=== PATIENT | male | born 1935 | race Caucasian/White ===

== ENCOUNTER 2020-11-06 17:32 | Inpatient (IN) | payer MEDICARE, BC, SELFPAY ==
[2020-11-06] VITALS (7 sets, daily range): BP systolic 111–126; BP diastolic 55–83; PULSE 65–93; RESP 18–22; TEMP 36.6–38.2; O2SAT 91–98; BMI 37.5; BMI 34.9
--- NOTE | 2020-11-06 17:44 | XRR_ITS ---
PROCEDURE INFORMATION: Exam: XR Chest Exam date and time: 11/06/2020 5:44 PM Age: 85 years old Clinical indication: Cough; Additional info: Dyspnea/cough TECHNIQUE: Imaging protocol: XR of the chest. Views: 1 view. COMPARISON: CR Chest 1 [place] [id number] 12/08/2018 8:04 AM FINDINGS: Lungs: Mildly hyperinflated lungs. No focal consolidation. Pleural spaces: Unremarkable. No pleural effusion. No pneumothorax. Heart/Mediastinum: Cardiomegaly with mild pulmonary central pulmonary vascular congestion, similar to prior exam. Bones/joints: Visualized osseous structures appear intact. 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 XR/XR chest 1V portable [id number] IMPRESSION: Stable exam, no acute findings.
[2020-11-06 18:07] LABS: Basophils # 0.1 10^3/uL (0.0-0.1); Basophils % 0.3 %; Hematocrit 38.9 % (42.0-52.0); Hemoglobin 13.3 g/dL (11.7-16.6); Lymphocytes # 0.4 10^3/uL (0.8-4.8); Lymphocytes % 2.8 %; Mean Corpuscular HGB Conc 34.2 g/dL (30.0-36.0); Mean Corpuscular Hemoglobin 32.7 pg (28.0-34.0); Mean Corpuscular Volume 95.6 fl (80-94); Mean Platelet Volume 9.8 fL (7.4-10.4); Monocytes # 0.9 10^3/uL (0.2-0.9); Monocytes % 5.7 %; Neutrophils # 14.27 10^3/uL (1.8-7.7); Neutrophils % 90.6 %; Nucleated Red Blood Cells % 0 %; Platelet Count 204 10^3/cmm (130-400); Red Blood Count 4.07 10^6/uL (4.1-5.3); Red Cell Distribution Width 13.6 % (12.1-15.1); White Blood Count 15.8 10^3/uL (4.0-10.0)
--- NOTE | 2020-11-06 18:08 | ED_ITS ---
HPI - Fever General: Chief Complaint: Fever Stated Complaint: WEAKNESS, FEVER Time Seen by Provider: 11/06/20 17:41 Source: patient and EMS Mode of arrival: EMS Limitations: no limitations History of Present Illness: HPI Narrative: 85-year-old male who had a fall draining he states he was coughing with this. He states he went to begin to stand but then he was too weak to really stand on his own. And checked his temperature and he had a fever of 102. Here patient has no complaints he states he feels fine he did not know he had a fever. He denies a headache denies any cough. He is able answer all my questions appropriately and is alert and oriented x4. He states that when he is trying to walk today that he is just to have difficulty due to weakness. He denies any injuries. Denies any pain anywhere. Associated symptoms: Deny abdominal pain, chest pain, diarrhea, dysuria, headache(s), nausea or vomiting Review of Systems Const: Reports: fever(s) and fatigue Eyes: Denies: blurry vision or eye discomfort ENMT: Denies: throat pain or dental pain Card: Denies: chest pain Resp: Denies: dyspnea GI: Denies: abdominal pain, nausea, vomiting or diarrhea : Denies: dysuria Musc: Denies: neck pain or back pain Skin/Breast: Denies: rash Neuro: Denies: headache(s) Psych: Denies: depression Andrea/Lymph: Denies: easy bruising All/Imm: Denies: urticaria PFSH ED PFSH: Medical History HTN (hypertension) Hypothyroid Surgical History History of knee replacement Social History Smoking and tobacco status: former smoker History of recent travel: No Physical Exam Const: COMMON NORMALS: no acute distress, patient oriented x3 and healthy appearing HENMT: COMMON NORMALS: normocephalic and atraumatic HEAD & SCALP: normocephalic and atraumatic Eye: COMMON NORMALS: Equal, round and reactive pupils present and EOMs intact bilaterally PUPIL: Yes Equal, round and reactive pupils present Neck/C-Spine: COMMON NORMALS: full ROM and supple Chest: COMMONS NORMALS: normal inspection of the chest and normal palpation of entire chest wall Resp: COMMON NORMALS: normal respiratory effort, No retractions, No use of accessory muscles and clear to auscultation bilaterally AUSCULTATION: clear to auscultation bilaterally Cardio: COMMON NORMALS: regular rate, regular rhythm and No murmurs present (Cardio) RATE: regular rate RHYTHM: regular rhythm GI: COMMON NORMALS: Normal to inspection, nondistended, normoactive bowel sounds present, Soft to palpation, non-tender and no masses PALPATION: Yes Soft to palpation Extremity: COMMON NORMALS: normal to inspection and full ROM Neuro: COMMON NORMALS: patient oriented x3, moves all extremities and no focal motor deficits Psych: COMMON NORMALS: mental status grossly normal, Normal thought process present and cooperative THOUGHT PROCESS: Normal thought process present Skin: COMMON NORMALS: no rashes or lesions noted and no wounds GENERAL SKIN EXAM: no rashes or lesions noted Course Vital Signs: Vital signs: Vital Signs Temperature 98.9 F 11/06/20 21:16 Pulse Rate 65 11/06/20 21:16 Respiratory Rate 18 11/06/20 21:16 Blood Pressure 111/57 11/06/20 21:16 Pulse Oximetry 98 11/06/20 21:16 MDM - Fever MDM Narrative: Medical decision making narrative: Patient presents here with fever along with weakness. Patient's had difficulty time ambulating here and I do not feel he stable for discharge back home. He does have cellulitis to his right leg and a possible urinary tract infection. Patient given IV antibiotics. Patient stable here and has been normotensive. Spoke to hospitalist will admit for observation. Lab Data: Labs: Lab Results 11/06/20 11/06/20 11/06/20 Range/Units 17:58 17:58 17:58 WBC 15.8 H (4.0-10.0) 10^3/ uL RBC 4.07 L (4.1-5.3) 10^6/u L Hgb 13.3 (11.7-16.6) g/dL Hct 38.9 L (42.0-52.0) % MCV 95.6 H (80-94) fl MCH 32.7 (28.0-34.0) pg MCHC 34.2 (30.0-36.0) g/dL RDW 13.6 (12.1-15.1) % Plt Count 204 (130-400) 10^3/c mm MPV 9.8 (7.4-10.4) fL Neut % (Auto) 90.6 % Lymph % (Auto) 2.8 % [place] % (Auto) 5.7 % Eos % (Auto) 0.0 % Baso % (Auto) 0.3 % Neut # (Auto) 14.27 H (1.8-7.7) 10^3/u L Lymph # (Auto) 0.4 L (0.8-4.8) 10^3/u L [place] # (Auto) 0.9 (0.2-0.9) 10^3/u L Eos # (Auto) 0.0 (0.0-0.8) 10^3/u L Baso # (Auto) 0.1 (0.0-0.1) 10^3/u L Nucleated RBC % (a uto) 0 % Nucleated RBCs # 0.0 /100WBC Sodium 132 L (136-145) mmol/L Potassium 4.0 (3.5-5.1) mmol/L Chloride 96 L (98-107) mmol/L Carbon Dioxide 22 (22-29) mmol/L Anion Gap 18.0 (5-19) BUN 23 (8-23) mg/dL Creatinine 1.0 (0.7-1.2) mg/dL GFR Calculation Not Reportable Glucose 136 H (65-115) mg/dL Calculated Osmolal ity 280 L (285-295) mOsm/k g Lactic Acid (0.5-2.2) mmol/L Calcium 9.1 (8.5-10.5) mg/dL Total Bilirubin 1.0 (0.15-1.2) mg/dL AST 27 (0-40) U/L ALT 16 (0-41) U/L Alkaline Phosphata se 77 (40-130) IU/L Total Protein 6.4 L (6.6-8.7) g/dL Albumin 3.5 (3.5-5.2) g/dL Globulin 2.9 (1.3-4.6) g/dL Urine Color Yellow (Yellow) Urine Appearance Sl hazy (CLEAR) Urine pH 6.5 (5-7) Ur Specific Gravit y 1.005 (1.005-1.030) Urine Protein Trace (Negative) Urine Glucose (UA) Norm (Normal) Urine Ketones Negative (Negative) Urine Blood 2+ H (Negative) Urine Nitrate Negative (Negative) Urine Bilirubin Neg (Negative) Urine Urobilinogen Norm (Negative) mg/dL Ur Leukocyte Lennie ase 2+ H (Negative) Urine RBC 5-10 H (0-2) /hpf Urine WBC 25-40 H (0-5) /hpf Ur Squamous Epith Cells 0-4 H (0-5) /hpf Amorphous Sediment Not Reportable Urine Bacteria 2+ H (NONE) /hpf SARS-CoV-2 Ag (Rap id) (Negative) 11/06/20 11/06/20 Range/Units 18:30 18:40 WBC (4.0-10.0) 10^3/ uL RBC (4.1-5.3) 10^6/u L Hgb (11.7-16.6) g/dL Hct (42.0-52.0) % MCV (80-94) fl MCH (28.0-34.0) pg MCHC (30.0-36.0) g/dL RDW (12.1-15.1) % Plt Count (130-400) 10^3/c mm MPV (7.4-10.4) fL Neut % (Auto) % Lymph % (Auto) % [place] % (Auto) % Eos % (Auto) % Baso % (Auto) % Neut # (Auto) (1.8-7.7) 10^3/u L Lymph # (Auto) (0.8-4.8) 10^3/u L [place] # (Auto) (0.2-0.9) 10^3/u L Eos # (Auto) (0.0-0.8) 10^3/u L Baso # (Auto) (0.0-0.1) 10^3/u L Nucleated RBC % (a uto) % Nucleated RBCs # /100WBC Sodium (136-145) mmol/L Potassium (3.5-5.1) mmol/L Chloride (98-107) mmol/L Carbon Dioxide (22-29) mmol/L Anion Gap (5-19) BUN (8-23) mg/dL Creatinine (0.7-1.2) mg/dL GFR Calculation Glucose (65-115) mg/dL Calculated Osmolal ity (285-295) mOsm/k g Lactic Acid 1.8 (0.5-2.2) mmol/L Calcium (8.5-10.5) mg/dL Total Bilirubin (0.15-1.2) mg/dL AST (0-40) U/L ALT (0-41) U/L Alkaline Phosphata se (40-130) IU/L Total Protein (6.6-8.7) g/dL Albumin (3.5-5.2) g/dL Globulin (1.3-4.6) g/dL Urine Color (Yellow) Urine Appearance (CLEAR) Urine pH (5-7) Ur Specific Gravit y (1.005-1.030) Urine Protein (Negative) Urine Glucose (UA) (Normal) Urine Ketones (Negative) Urine Blood (Negative) Urine Nitrate (Negative) Urine Bilirubin (Negative) Urine Urobilinogen (Negative) mg/dL Ur Leukocyte Lennie ase (Negative) Urine RBC (0-2) /hpf Urine WBC (0-5) /hpf Ur Squamous Epith Cells (0-5) /hpf Amorphous Sediment Urine Bacteria (NONE) /hpf SARS-CoV-2 Ag (Rap id) Negative (Negative) Imaging Data^: CXR: Attestation: I personally reviewed and interpreted this imaging study as follows: My impression: [address] [address] XRay Report Signed Patient: Earle De La Rosa Unit #: [id number] : 1935 Age/Sex: 85 / M ADM Date: 11/06/20 Loc: ER Room/Bed: Attending Dr: Ordering Provider/Ordering MD: Braydon Guallpa DO Date of Service: 11/06/20 Procedure(s): XR chest 1V portable [id number] Accession Number(s): [id number] Report Number: [id number] PROCEDURE INFORMATION: Exam: XR Chest Exam date and time: 11/06/2020 5:44 PM Age: 85 years old Clinical indication: Cough; Additional info: Dyspnea/cough TECHNIQUE: Imaging protocol: XR of the chest. Views: 1 view. COMPARISON: CR Chest 1 [place] [id number] 12/08/2018 8:04 AM FINDINGS: Lungs: Mildly hyperinflated lungs. No focal consolidation. Pleural spaces: Unremarkable. No pleural effusion. No pneumothorax. Heart/Mediastinum: Cardiomegaly with mild pulmonary central pulmonary vascular congestion, similar to prior exam. Bones/joints: Visualized osseous structures appear intact. 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 XR/XR chest 1V portable [id number] IMPRESSION: Stable exam, no acute findings. Dictated By: Dayton Flores DO Signed By: Dayton Flores DO Signed Date/Time: 11/06/201836 DD/ 34 CT Head: Attestation: I personally reviewed and interpreted this imaging study as follows: Radiologist's impression: [address] [address] [address] Scan Report Signed Patient: Earle De La Rosa Unit #: [id number] : 1935 Age/Sex: 85 / M ADM Date: 11/06/20 Loc: ER Room/Bed: Attending Dr: Ordering Provider/Ordering MD: Jairo Back MD Date of Service: 11/06/20 Procedure(s): CT head wo con* [id number] Accession Number(s): [id number] Report Number: [id number] PROCEDURE INFORMATION: Exam: CT Head Without Contrast Exam date and time: 11/06/2020 6:06 PM Age: 85 years old Clinical indication: Injury or trauma; Fall; Blunt trauma (contusions or hematomas); Additional info: Fall, weakness, TECHNIQUE: Imaging protocol: Computed tomography of the head without contrast. Radiation optimization: All CT scans at this facility use at least one of these dose optimization techniques: automated exposure control; mA and/or kV adjustment per patient size (includes targeted exams where dose is matched to clinical indication); or iterative reconstruction. COMPARISON: CT head wo con* [id number] 11/11/2014 10:57 AM RADIATION DOSE METRICS: Total DLP (mGy-cm): 964.74 FINDINGS: Brain: No hemorrhage. Mild diffuse cerebral atrophy. Similar sequela of low attenuation signal abnormality within the periventricular, subcortical, and deep white matter tracts suggestive of chronic small vessel ischemic disease. No mass effect or midline shift. Cerebral ventricles: No ventriculomegaly. Paranasal sinuses: Visualized sinuses are unremarkable. No fluid levels. Mastoid air cells: Visualized mastoid air cells are well aerated. Orbital cavity: Post cataract surgical changes of the globes. Bones/joints: Unremarkable. No acute fracture. Soft tissues: Unremarkable. CT/CT head wo con* [id number] IMPRESSION: 1. No acute intracranial abnormality. 2. Stable exam with mild diffuse cerebral atrophy and suspected sequela of chronic small vessel ischemic disease. Radiation Dose CTDIVOL = (mGy): DLP = 964.74 (mGy-cm) Dictated By: Dayton Flores DO Signed By: Dayton Flores DO Signed Date/Time: 11/06/201918 DD/ 17 Discharge Plan Discharge Patient Disposition: Admitted As Inpatient Admit Provider: Kamila Starks Clinical Impression: Abscess or cellulitis of foot, Fever, Weakness Condition: Stable Coding Level of Care Code ED Statistical Technician for Chg Fwd Exam Comprehensive
[2020-11-06 18:39] LABS: Add Urine Microscopic? YES; Bilirubin Urine Neg (Negative); Blood Urine 2+ (Negative); Glucose Urine UA Norm (Normal); Ketones Urine Negative (Negative); Leukocyte Esterase Urine 2+ (Negative); Nitrate Urine Negative (Negative); Protein Urine Trace (Negative); Specific Gravity, Urine 1.005 (1.005-1.030); Urine Appearance SL Hazy (CLEAR); Urine Color Yellow (Yellow); Urobilinogen Urine Norm (Negative); pH Urine 6.5 (5-7)
--- NOTE | 2020-11-06 18:52 | PC.NURSE ---
report from layo petty, patient in ct at this time.
[2020-11-06 18:58] LABS: WBC Urine 25-40 /hpf (0-5)
[2020-11-06 18:59] LABS: Add Urine Culture? Yes; Bacteria Urine 2+ /hpf; Squamous Epithelial Cell Urine 0-4 /hpf (0-5)
[2020-11-06 19:08] LABS: Lactic Sepsis W/Reflex 1.8 mmol/L (0.5-2.2)
[2020-11-06 19:10] LABS: Alanine Aminotransferase 16 U/L (0-41); Albumin Level 3.5 g/dL (3.5-5.2); Alkaline Phosphatase 77 IU/L (40-130); Aspartate Amino Transferase 27 U/L (0-40); Blood Urea Nitrogen 23 mg/dL (8-23); Calcium 9.1 mg/dL (8.5-10.5); Carbon Dioxide 22 mmol/L (22-29); Chloride 96 mmol/L (98-107); Globulin 2.9 g/dL (1.3-4.6); Glucose 136 mg/dL (65-115); Osmolality Calculated 280 mOsm/kg (285-295); Sodium 132 mmol/L (136-145); Total Protein 6.4 g/dL (6.6-8.7)
[2020-11-06] MEDS: acetaminophen 325 mg Tablet 650 MG PO (19:16)
[2020-11-06] MEDS: sodium chloride 0.9% 1,000 ML 999 ML IV (19:16)
[2020-11-06 20:05] LABS: SARS Covid-2 Antigen Negative (Negative)
--- NOTE | 2020-11-06 20:05 | CTR_ITS ---
PROCEDURE INFORMATION: Exam: CT Abdomen And Pelvis With Contrast Exam date and time: 11/06/2020 8:05 PM Age: 85 years old Clinical indication: Abdominal pain; Patient HX: Generalized abd pain TECHNIQUE: Imaging protocol: Computed tomography of the abdomen and pelvis with contrast. Radiation optimization: All CT scans at this facility use at least one of these dose optimization techniques: automated exposure control; mA and/or kV adjustment per patient size (includes targeted exams where dose is matched to clinical indication); or iterative reconstruction. Contrast material: OMNI 300; Contrast volume: 95 ml; Contrast route: INTRAVENOUS (IV); COMPARISON: [facility] Testicular 12/16/2018 10:59 AM RADIATION DOSE METRICS: Total DLP (mGy-cm): 2033.47 FINDINGS: Heart: Cardiomegaly with small volume pericardial effusion. Liver: Normal. No mass. Gallbladder and bile ducts: Trace hyperdense debris noted within the gallbladder. No gallbladder distention or wall thickening. Pancreas: Fatty atrophy of the pancreas noted. Spleen: Punctate calcified granulomas noted within the spleen. Adrenal glands: Normal. No mass. Kidneys and ureters: There is a 4.3 cm exophytic rounded lesion in the upper pole the right kidney. It most resembles a complex cyst with increased internal attenuation suggestive of proteinaceous or hemorrhagic debris. There is a 5.3 cm simple cyst originating off the lower pole left kidney. Stomach and bowel: Scattered colonic diverticula without findings of acute diverticulitis. No evidence of bowel obstruction. Appendix: No evidence of appendicitis. Intraperitoneal space: Unremarkable. No free air. No significant fluid collection. Vasculature: Unremarkable. No abdominal aortic aneurysm. Lymph nodes: Several mildly prominent retroperitoneal lymph nodes noted, most likely reactive. Urinary bladder: Unremarkable as visualized. Reproductive: Enlarged prostate noted. Bones/joints: No acute fracture. Grade 1 anterolisthesis of L5 on S1. 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 Soft tissues: Rectus diastasis noted. Small fat containing left inguinal hernia. CT/CT abdomen pelvis w con* [id number] IMPRESSION: 1. No acute abdominal/pelvic findings. 2. Cardiomegaly with small volume pericardial effusion. 3. 4.3 cm right upper pole renal lesion with increased internal attenuation. Imaging appearance is most suggestive of proteinaceous or hemorrhagic cyst, however, would suggest nonemergent follow-up ultrasound of the kidneys to establish cystic nature of the lesion. COMMENTS: Consistent with the [employer]'s Incidental Findings Committee white paper (J Am Franklin Radiol 2018): Any incidental renal lesion less than 1 cm or classified as too small to characterize, or any incidental cystic renal lesion characterized as simple-appearing, is likely benign. No follow-up imaging is recommended for these lesions per consensus recommendations based on imaging criteria. Radiation Dose CTDIVOL = (mGy): DLP = 2034.47 (mGy-cm)
[2020-11-06] MEDS: iohexol 300 mg/mL 100 mL Btl IV (20:41)
[2020-11-06] MEDS: cefTRIAXone 1,000 MG in sodium chloride 0.9% (plus) 50 ML 100 MG IV (21:12)
--- NOTE | 2020-11-06 22:43 | PC.NURSE ---
daughter called and updated per patient consent
--- NOTE | 2020-11-07 00:30 | PC.NURSE ---
Patient arrives to [facility] at 1140pm on 11/06/2020. No complaints of pain. Generalized weakness noted. Rash and edema to right lower leg. Assessment completed. Doctor notified. Will continue to monitor.
--- NOTE | 2020-11-07 02:59 | PM.HP ---
Providers/Chief Complaint Admitting Physician: Kamila Starks MD Primary Care Provider: Noel You MD Chief Complaint: WEAKNESS, FEVER History of Present Illness Earle De La Rosa is a 85 year old male who lives alone after his earlier this year. He presented to the emergency room after a fall at home. He stated that he had been in the bathroom and came out and his knees just gave away. He went straight down. Denies any injury or current pain.He had significant difficulty getting up and was not able to support his weight on his own. His legs felt weak. He was brought in by EMS. He had a fever of 102. He has had a bit of a mild cough today but states that he always has some bit of a morning cough with sputum production, not really any different than baseline. Denies sore throat, loss of taste or smell, headache, body aches. No nausea, vomiting or diarrhea. No known sick contacts with Covid. He did receive Covid vaccination. Work-up in the emergency room revealed abnormal urinalysis although there were some squamous epithelial cells. He denied any difficulty with urination beyond peeing too much sometimes. He had some erythema and edema of his right lower extremity noted. Patient reports that this is chronic in nature, however I do not see indications of this and available records. Patient received some IV fluids and Rocephin in the emergency room. CT of the head as well as abdomen and pelvis were done in the emergency room. He continued to be unable to ambulate and stand on his own without assistance due to general weakness. Given that he lives alone it was not felt safe for him to be discharged home. He is being admitted for further treatment and evaluation as needed. Review of Systems Const: Reports: fever(s), chills and fatigue; Denies: change in appetite Eyes: Denies: change in vision ENMT: Denies: throat pain, dry mouth or nasal congestion Card: Reports: edema; Denies: chest pain, palpitations or orthopnea Resp: Reports: productive cough (primarily in mornings); Denies: dyspnea, non-productive cough or wheezing GI: Denies: abdominal pain, nausea, vomiting, diarrhea, constipation, hematochezia or melena : Reports: urinary frequency and urinary dribbling; Denies: hematuria Musc: Denies: other (complaints of new joint or muscle pain) Skin/Breast: Reports: rash (r leg always red per patient) and sores (healing areas where biospies done at derm clinic, forehead, right cheek); Denies: pruritus Neuro: Reports: weakness in extremities and difficulty walking; Denies: headache(s), numbness in extremities or dizziness Psych: Reports: other (not feeling right); Denies: anxiety or depression Andrea/Lymph: Denies: easy bruising or easy bleeding Medications/Allergies Home Medications Medication Instructions Recorded Confirmed Last Taken Type apixaban [Eliquis] 2.5 mg PO BID 11/06/20 11/06/20 Unknown History aspirin [Aspir-81] 81 mg PO DAILY 11/06/20 11/06/20 11/06/20 History clotrimazole 1 applic TOPICAL BID 11/06/20 11/06/20 11/06/20 History famotidine 40 mg PO BID 11/06/20 11/06/20 11/06/20 History furosemide 40 mg PO DAILY 11/06/20 11/06/20 11/06/20 History levothyroxine See Rx Instructions .ROUTE .COMPLEX 11/06/20 11/06/20 11/06/20 History metformin 500 mg PO DAILY 11/06/20 11/06/20 11/06/20 History spironolactone 50 mg PO DAILY 11/06/20 11/06/20 11/06/20 History triamcinolone acetonide See Rx Instructions .ROUTE .COMPLEX 11/06/20 11/06/20 11/06/20 History Allergies Allergy/AdvReac Type Severity Reaction Status Date / Time ketorolac [From Toradol] Allergy unk Verified 11/06/20 17:48 penicillin G Allergy hives Verified 11/06/20 17:48 PFSH Acute PFSH: Medical History (Updated 11/07/20 @ 08:48 by Kamila Starks MD) Atrial fibrillation Basal cell carcinoma Borderline diabetes COVID-19 vaccine administered Moderna Diastolic CHF Dyslipidemia History of rhabdomyolysis HTN (hypertension) Hypothyroid Malignant melanoma in situ Prostatic hypertrophy Squamous cell carcinoma in situ Surgical History (Updated 11/07/20 @ 05:32 by Kamila Starks MD) History of bilateral knee replacement History of cataract surgery History of inguinal hernia repair History of thyroidectomy For Hurthle cell carcinoma Social History (Updated 11/07/20 @ 08:54 by Kamila Starks MD) Smoking and tobacco status: former smoker Alcohol intake: current Alcohol intake frequency: holidays/special occasions only Substance/Drug Use: never Household members: none Marital status: / Supplemental [facility] Information: Patient denied any significant family history Vitals/I&O/Wt Last Vital Signs Temp 97.9 F 11/06/20 23:07 Pulse 82 11/06/20 23:07 Resp 18 11/06/20 23:07 BP 126/78 11/06/20 23:07 Pulse Ox 95 11/06/20 23:07 11/06/20 11/06/20 11/07/20 14:59 22:59 06:59 Intake Total 1050 / 1050 Balance 1050 / 1050 Weight last 48 hrs Weight 127.006 kg Weight 136.078 kg Physical Exam Narrative: EXAM NARRATIVE: Constitutional: Asleep, easily arousable HEENT: Patient with some healing sores on forehead and cheek from prior biopsy sites. Has a nodular nose. Arcus senilis is noted. Extraocular movements are intact. Mucous membranes are moist. Neck: Supple Respiratory: Clear to auscultation bilaterally without any rales or rhonchi noted, no wheezes Cardiovascular: Regular rhythm, occasional skipped beat, 2+ pulses Abdomen: Soft, nontender, positive bowel sounds : Normal external genitalia Extremities: Pitting edema is noted to bilateral distal extremities, right greater than left but unchanged per the patient's family Skin: Dry, evidence of sun exposure, several biopsy sites in different stages of healing Neuro: Speech clear, handgrip equal, moves both feet, gait not currently assessed Psych: Cooperative Data : 11/07/20 07:26 11/06/20 17:58 Other Labs: Laboratory Results WBC 15.8 10^3/uL (4.0-10.0) H 11/06/20 17:58 RBC 4.07 10^6/uL (4.1-5.3) L 11/06/20 17:58 Hgb 13.3 g/dL (11.7-16.6) 11/06/20 17:58 Hct 38.9 % (42.0-52.0) L 11/06/20 17:58 MCV 95.6 fl (80-94) H 11/06/20 17:58 MCH 32.7 pg (28.0-34.0) 11/06/20 17:58 MCHC 34.2 g/dL (30.0-36.0) 11/06/20 17:58 RDW 13.6 % (12.1-15.1) 11/06/20 17:58 Plt Count 204 10^3/cmm (130-400) 11/06/20 17:58 MPV 9.8 fL (7.4-10.4) 11/06/20 17:58 Neut % (Auto) 90.6 % 11/06/20 17:58 Lymph % (Auto) 2.8 % 11/06/20 17:58 Bledsoe % (Auto) 5.7 % 11/06/20 17:58 Eos % (Auto) 0.0 % 11/06/20 17:58 Baso % (Auto) 0.3 % 11/06/20 17:58 Neut # (Auto) 14.27 10^3/uL (1.8-7.7) H 11/06/20 17:58 Lymph # (Auto) 0.4 10^3/uL (0.8-4.8) L 11/06/20 17:58 Bledsoe # (Auto) 0.9 10^3/uL (0.2-0.9) 11/06/20 17:58 Eos # (Auto) 0.0 10^3/uL (0.0-0.8) 11/06/20 17:58 Baso # (Auto) 0.1 10^3/uL (0.0-0.1) 11/06/20 17:58 Nucleated RBC % (auto) 0 % 11/06/20 17:58 Nucleated RBCs # 0.0 /100WBC 11/06/20 17:58 Sodium 132 mmol/L (136-145) L 11/06/20 17:58 Potassium 4.0 mmol/L (3.5-5.1) 11/06/20 17:58 Chloride 96 mmol/L (98-107) L 11/06/20 17:58 Carbon Dioxide 22 mmol/L (22-29) 11/06/20 17:58 Anion Gap 18.0 (5-19) 11/06/20 17:58 BUN 23 mg/dL (8-23) 11/06/20 17:58 Creatinine 1.0 mg/dL (0.7-1.2) 11/06/20 17:58 GFR Calculation Not Reportable 11/06/20 17:58 Glucose 136 mg/dL (65-115) H 11/06/20 17:58 Calculated Osmolality 280 mOsm/kg (285-295) L 11/06/20 17:58 Lactic Acid 1.8 mmol/L (0.5-2.2) 11/06/20 18:30 Calcium 9.1 mg/dL (8.5-10.5) 11/06/20 17:58 Total Bilirubin 1.0 mg/dL (0.15-1.2) 11/06/20 17:58 AST 27 U/L (0-40) 11/06/20 17:58 ALT 16 U/L (0-41) 11/06/20 17:58 Alkaline Phosphatase 77 IU/L (40-130) 11/06/20 17:58 Total Protein 6.4 g/dL (6.6-8.7) L 11/06/20 17:58 Albumin 3.5 g/dL (3.5-5.2) 11/06/20 17:58 Globulin 2.9 g/dL (1.3-4.6) 11/06/20 17:58 Urine Color Yellow (Yellow) 11/06/20 17:58 Urine Appearance Sl hazy (CLEAR) 11/06/20 17:58 Urine pH 6.5 (5-7) 11/06/20 17:58 Ur Specific [place] 1.005 (1.005-1.030) 11/06/20 17:58 Urine Protein Trace (Negative) 11/06/20 17:58 Urine Glucose (UA) Norm (Normal) 11/06/20 17:58 Urine Ketones Negative (Negative) 11/06/20 17:58 Urine Blood 2+ (Negative) H 11/06/20 17:58 Urine Nitrate Negative (Negative) 11/06/20 17:58 Urine Bilirubin Neg (Negative) 11/06/20 17:58 Urine Urobilinogen Norm mg/dL (Negative) 11/06/20 17:58 Ur Leukocyte Esterase 2+ (Negative) H 11/06/20 17:58 Urine RBC 5-10 /hpf (0-2) H 11/06/20 17:58 Urine WBC 25-40 /hpf (0-5) H 11/06/20 17:58 Ur Squamous Epith Cells 0-4 /hpf (0-5) H 11/06/20 17:58 Amorphous Sediment Not Reportable 11/06/20 17:58 Urine Bacteria 2+ /hpf (NONE) H 11/06/20 17:58 SARS-CoV-2 Ag (Rapid) Negative (Negative) 11/06/20 18:40 Impressions Chest X-Ray 11/06/20 17:44 IMPRESSION: Stable exam, no acute findings. Head CT 11/06/20 18:06 IMPRESSION: 1. No acute intracranial abnormality. 2. Stable exam with mild diffuse cerebral atrophy and suspected sequela of chronic small vessel ischemic disease. Radiation Dose CTDIVOL = (mGy): DLP = 964.74 (mGy-cm) Abdomen/Pelvis CT 11/06/20 20:05 IMPRESSION: 1. No acute abdominal/pelvic findings. 2. Cardiomegaly with small volume pericardial effusion. 3. 4.3 cm right upper pole renal lesion with increased internal attenuation. Imaging appearance is most suggestive of proteinaceous or hemorrhagic cyst, however, would suggest nonemergent follow-up ultrasound of the kidneys to establish cystic nature of the lesion. COMMENTS: Consistent with the [place] [employer]'s Incidental Findings Committee white paper (J Am Franklin Radiol 2018): Any incidental renal lesion less than 1 cm or classified as too small to characterize, or any incidental cystic renal lesion characterized as simple-appearing, is likely benign. No follow-up imaging is recommended for these lesions per consensus recommendations based on imaging criteria. Radiation Dose CTDIVOL = (mGy): DLP = 2034.47 (mGy-cm) Micro: Microbiology 11/06/20 18:30 Blood Culture - Preliminary Blood SPECIMEN COLLECTED 11/06/20 18:32 Blood Culture - Preliminary Blood SPECIMEN COLLECTED A&P Assessment and plan (1) Fall at home: Status: Acute Qualifiers: Encounter type: initial encounter Qualified Code(s): W19.XXXA - Unspecified fall, initial encounter; Y92.009 - Unspecified place in unspecified non-institutional (private) residence as the place of occurrence of the external cause (2) Weakness: Generalized Status: Acute (3) Fever: Tmax 102 Status: Acute Qualifiers: Fever type: unspecified Qualified Code(s): R50.9 - Fever, unspecified (4) Cellulitis of right leg: Patient reports chronic but unclear in available records Status: Acute (5) Chronic anticoagulation: Eliquis Status: Acute (6) Atrial fibrillation: Not chronically on any rate control medications Status: Chronic Qualifiers: Atrial fibrillation type: unspecified Qualified Code(s): I48.91 - Unspecified atrial fibrillation (7) Diastolic CHF: Chronically on Lasix and spironolactone Status: Chronic Qualifiers: Heart failure chronicity: chronic Qualified Code(s): I50.32 - Chronic diastolic (congestive) heart failure (8) HTN (hypertension): Treated with diuretic therapy Status: Chronic Qualifiers: Hypertension type: essential hypertension Qualified Code(s): I10 - Essential (primary) hypertension (9) Hypothyroid: Reports chronically being on levothyroxine Status: Chronic Qualifiers: Hypothyroidism type: postoperative Qualified Code(s): E89.0 - Postprocedural hypothyroidism (10) Dyslipidemia: Chronically on a statin Status: Chronic (11) Borderline diabetes: Chronically on Metformin Status: Chronic (12) Lives alone: Status: Acute Additional A&P Information 4.3 cm right upper pole renal lesion suggestive of proteinaceous or hemorrhagic cyst Observation admission for now IV fluids Hold home diuretics initially Echocardiogram Venous duplex of the lower extremity Electrolyte replacement as needed Check TSH Check EKG Telemetry monitoring Covid testing Check CK level Continue Rocephin for now Blood and urine cultures were collected Sliding scale insulin as needed for diabetes Continue home Eliquis, aspirin and clotrimazole/triamcinolone cream PPI PT evaluation Depending on how he does consider discussion with primary care provider regarding difference from baseline Supportive care otherwise Plans were discussed the patient and he was given opportunity to ask questions Red will provide appropriate DVT prophylaxis Case management to assist with DC planning Full code Attestations Medical Necessity Statement*: Currently anticipated stay less than 2 midnights in a gentleman who had a fall at home and was unable to get up and stand on his own. He has some abnormalities as noted along with chronic conditions. Of note he lives alone. Currently receiving IV fluids, IV antibiotics and further evaluation planned for tomorrow after we see how he responds. Coding Level of Care Code Acute Special Needs Child Caregiver for Chg Fwd Diagnoses Fall at home W19.XXXA; Y92.009 Encounter type: initial encounter Weakness R53.1 Fever R50.9 Fever type: unspecified Cellulitis of right leg L03.115 Chronic anticoagulation Z79.01 Atrial fibrillation I48.91 Atrial fibrillation type: unspecified Diastolic CHF I50.32 Heart failure chronicity: chronic HTN (hypertension) I10 Hypertension type: essential hypertension Hypothyroid E89.0 Hypothyroidism type: postoperative Dyslipidemia E78.5 Borderline diabetes R73.03 Lives alone Z60.2
[2020-11-07 03:07] VITALS: BP 125/63; PULSE 64; RESP 17; TEMP 36.8; O2SAT 96
--- NOTE | 2020-11-07 05:44 | USCV_ITS ---
Earle De La Rosa Age: 85 Gender: M : 1935 Exam Date: 11/07/2020 06:24 Ordering Phys: Kamila Starks MD Technologist: Exam Location: [facility] [place] Indication: LOWER EXTREM SWELLING HISTORY: Lower extremity swelling. PROCEDURES: The venous duplex Doppler examination of both lower extremities was performed in the standard fashion. The following venous structures were evaluated: common femoral vein, profunda vein, proximal portion of the greater saphenous vein, superficial femoral vein, and the popliteal vein. Serial compression, augmentation maneuvers, and spectral Doppler flow evaluation were performed. FINDINGS: Normal 2-D Doppler and augmentation and compressibility throughout the lower extremity venous structures. Additional imaging through the proximal calf veins also reveals no thrombus. Limited evaluation of the greater saphenous vein is patent with no thrombus. CONCLUSIONS No DVT bilateral lower extremities. Dr. Kinsey Patel DO (Electronically Signed) Final Date: 07 November 2020 08:50 S
--- NOTE | 2020-11-07 05:50 | USCV_ITS ---
Earle De La Rosa Age: 85 Gender: M : 1935 Exam Date: 11/07/2020 06:16 Ordering Phys: Kamila Starks MD Technologist: Exam Location: [facility] – [place] Indication: SOB COVID BP: 135 / 82 HR: 54 Rhythm: Sinus Technical Quality: Adequate MEASUREMENTS (Male / Female) Normal Values 2D ECHO LV Diastolic Diameter PLAX 5.0 cm 4.2 - 5.9 / 3.9 - 5.3 cm LV Systolic Diameter PLAX 3.7 cm IVS Diastolic Thickness 1.0 cm 0.6 - 1.0 / 0.6 - 0.9 cm IVS Systolic Thickness 1.6 cm LVPW Diastolic Thickness 1.3 cm 0.6 - 1.0 / 0.6 - 0.9 cm LVPW Systolic Thickness 1.9 cm LVOT Diameter 2.0 cm LV Ejection Fraction 2D Teich 51.1 % LV Ejection Fraction MOD 2C 62.7 % LV Ejection Fraction 2C AL 61.7 % LA Diameter 4.1 cm LA Width 5.1 cm LA Height 6.2 cm RA Width 4.8 cm RA Height 6.2 cm Aorta at Sinotubular Diameter 3.1 cm FINDINGS Left Ventricle Normal left ventricular cavity size. Normal left ventricular systolic function. No regional wall motion abnormalities. Left ventricular ejection fraction is estimated at 55 %. Right Ventricle Normal right ventricular systolic function. Right Atrium Left Atrium Mitral Valve Aortic Valve Tricuspid Valve Pulmonic Valve Pericardium Aorta CONCLUSIONS Limited echo due to technical difficulty 1-Normal left ventricular cavity size. Normal left ventricular systolic function. No regional wall motion abnormalities. Left ventricular ejection fraction is estimated at 55 %. 2-Normal right ventricular systolic function. 3-There is no pericardial effusion. 4-Cannot compare with the prior echocardiogram due to limited study. Faith Whitman MD (Electronically Signed) Final Date: 07 November 2020 21:31 S
[2020-11-07 07:48] LABS: Basophils % 0.3 %; Eosinophils % 0.4 %; Hematocrit 39.3 % (42.0-52.0); Hemoglobin 13.2 g/dL (11.7-16.6); Lymphocytes # 0.7 10^3/uL (0.8-4.8); Lymphocytes % 6.1 %; Mean Corpuscular HGB Conc 33.6 g/dL (30.0-36.0); Mean Corpuscular Volume 98.3 fl (80-94); Mean Platelet Volume 9.9 fL (7.4-10.4); Monocytes # 0.7 10^3/uL (0.2-0.9); Monocytes % 6.6 %; Neutrophils # 9.36 10^3/uL (1.8-7.7); Neutrophils % 85.9 %; Nucleated Red Blood Cells % 0 %; Platelet Count 198 10^3/cmm (130-400); Red Cell Distribution Width 14.1 % (12.1-15.1); White Blood Count 10.9 10^3/uL (4.0-10.0)
[2020-11-07 08:00] VITALS: BP 143/73; PULSE 75; RESP 18; TEMP 37.4; O2SAT 97
--- NOTE | 2020-11-07 08:38 | ECG_ITS ---
[facility] Test Date: 2020-11-07 Pat Name: Earle De La Rosa Department: Room: 255 Gender: Male Analytical Lead: : 1935 Requested By: Kamila Starks Order Number: [id number] Merlin MD: Sherly Brown M.D. Measurements Intervals [place] Rate: 68 P: ID: QRS: -43 QRSD: 155 T: 91 QT: 444 QTc: 474 Interpretive Statements ATRIAL FIBRILLATION WITH ABERRANT CONDUCTION OR VENTRICULAR PREMATURE COMPLEXES MARKED LEFT AXIS DEVIATION [QRS AXIS < -30] LEFT BUNDLE BRANCH BLOCK [120+ ms QRS DURATION, 80+ ms Q/S IN V1/V2, 85+ ms R IN I/aVL/V5/V6] Compared to ECG 12/04/2018 17:36:52 No significant changes Electronically Signed On 11-09-2020 18:30:18 CDT by Sherly Brown M.D. [id number]
[2020-11-07 08:46] LABS: Anion Gap 12.9 (5-19); Blood Urea Nitrogen 24 mg/dL (8-23); Carbon Dioxide 26 mmol/L (22-29); Chloride 99 mmol/L (98-107); Glucose 125 mg/dL (65-115); NT Pro B Type Natriuretic Pept 7301 pg/mL (0-450); Osmolality Calculated 284 mOsm/kg (285-295); Phosphorus 2.9 mg/dL (2.5-4.5); Potassium 3.9 mmol/L (3.5-5.1); Sodium 134 mmol/L (136-145)
[2020-11-07 09:04] LABS: Creatine Phosphokinase 1886 U/L (39-308)
[2020-11-07] MEDS: pantoprazole DR 40 mg Tablet PO (09:09)
[2020-11-07] MEDS: aspirin 81 mg EC Tablet PO (09:09)
[2020-11-07] MEDS: apixaban 5 mg Tablet 2.5 MG PO ×2 (09:09→20:33)
[2020-11-07] MEDS: levothyroxine 25 mcg Tablet PO (09:10)
[2020-11-07] MEDS: clotrimazole 1% cream 30 gm 1 APPLIC TOPICAL ×2 (09:22→18:10)
[2020-11-07] MEDS: triamcinolone 0.1% cream 15 gm 1 APPLIC TOPICAL ×2 (09:22→18:09)
[2020-11-07 11:32] LABS: Glucose Point of Care 194 mg/dL (70-110)
[2020-11-07 11:48] VITALS: BP 144/71; PULSE 67; RESP 17; TEMP 36.3; O2SAT 96
--- NOTE | 2020-11-07 13:52 | PM.PN ---
Subjective Subjective: Interval history: 85-year-old male who lives alone after his earlier this year. He presented to the emergency room after a fall at home. He stated that he had been in the bathroom and came out and his knees just gave away. He went straight down. Denies any injury or current pain. He had significant difficulty getting up and was not able to support his weight on his own. His legs felt weak. He was brought in by EMS. He had a fever of 102. He has had a bit of a mild cough today but states that he always has some bit of a morning cough with sputum production, not really any different than baseline. Denies sore throat, loss of taste or smell, headache, body aches. No nausea, vomiting or diarrhea. No known sick contacts with Covid. He did receive Covid vaccination. Work-up in the emergency room revealed abnormal urinalysis although there were some squamous epithelial cells. He denied any difficulty with urination beyond peeing too much sometimes. He had some erythema and edema of his right lower extremity noted. Patient reports that this is chronic in nature, however I do not see indications of this and available records. Patient received some IV fluids and Rocephin in the emergency room. CT of the head as well as abdomen and pelvis were done in the emergency room. He continued to be unable to ambulate and stand on his own without assistance due to general weakness. Given that he lives alone it was not felt safe for him to be discharged home. He is being admitted for further treatment and evaluation as needed. Laboratory workup on admission showed a WBC of 15.8, hemoglobin of 13.3, hematocrit 38.9 and platelet count of 204. Sodium 132, potassium 4.0, chloride 96, bicarb 22, BUN 23 and creatinine 1.0. Urinalysis showed 2+ leukocyte esterase, 25 to 40 wbc's and 2+ bacteria. COVID-19 antigen was negative. Chest x-ray did not show any evidence of acute abnormality. Head CT was also negative for any acute abnormality. CT of abdomen pelvis did not show any acute abdominal pelvic findings. Was noted to have cardiomegaly with small volume pericardial effusion. Bilateral venous duplexes were negative. Patient was started on ceftriaxone 1 g IV Q 24 hour. Additionally patient was noted have a fever 100.8 on arrival. 11/07/2020 No new clinical events overnight. No new complaints Medications: Reviewed: Yes Vitals/I&O/Wt Last Vital Signs Temp 97.3 F L 11/07/20 11:48 Pulse 67 11/07/20 11:48 Resp 17 11/07/20 11:48 BP 144/71 11/07/20 11:48 Pulse Ox 96 11/07/20 11:48 11/06/20 11/07/20 11/07/20 22:59 06:59 14:59 Intake Total 1050 / 1050 900 / 900 Balance 1050 / 1050 900 / 900 Weight last 48 hrs Weight 127.006 kg Weight 136.078 kg Physical Exam Narrative: EXAM NARRATIVE: Constitutional: awake alert HEENT: Patient with some healing sores on forehead and cheek from prior biopsy sites. Has a nodular nose. Arcus senilis is noted. Extraocular movements are intact. Mucous membranes are moist. Neck: Supple Respiratory: Clear to auscultation bilaterally without any rales or rhonchi noted, no wheezes Cardiovascular: Regular rhythm, occasional skipped beat, 2+ pulses Abdomen: Soft, nontender, positive bowel sounds : Normal external genitalia Extremities: Pitting edema is noted to bilateral distal extremities, right greater than left but unchanged per the patient's family Skin: Dry, evidence of sun exposure, several biopsy sites in different stages of healing Neuro: Speech clear, handgrip equal, moves both feet, gait not currently assessed Psych: Cooperative Data : 11/07/20 07:26 11/07/20 07:26 Micro: Microbiology 11/06/20 18:30 Blood Culture - Preliminary Blood SPECIMEN COLLECTED 11/06/20 18:32 Blood Culture - Preliminary Blood SPECIMEN COLLECTED A&P Assessment and plan (1) Fall at home: Possibly due to weakness from infectious process PT consultation Fall precautions Echocardiogram Status: Acute Qualifiers: Encounter type: initial encounter Qualified Code(s): W19.XXXA - Unspecified fall, initial encounter; Y92.009 - Unspecified place in unspecified non-institutional (private) residence as the place of occurrence of the external cause (2) Weakness: Generalized Status: Acute (3) Fever: T-max 100.8 Blood cultures x2 - NGTD Urine cultures Continue Rocephin 1 g IV Q 24 Tylenol p.r.n. for fever Further antibiotics based on culture and clinical course Status: Acute Qualifiers: Fever type: unspecified Qualified Code(s): R50.9 - Fever, unspecified (4) Cellulitis of right leg: Patient reports chronic but unclear in available records Status: Acute (5) Chronic anticoagulation: Eliquis Status: Acute (6) Atrial fibrillation: Not chronically on any rate control medications Eliquis for CVA prevention Status: Chronic Qualifiers: Atrial fibrillation type: unspecified Qualified Code(s): I48.91 - Unspecified atrial fibrillation (7) Diastolic CHF: Chronically on Lasix and spironolactone Status: Chronic Qualifiers: Heart failure chronicity: chronic Qualified Code(s): I50.32 - Chronic diastolic (congestive) heart failure (8) HTN (hypertension): Treated with diuretic therapy Status: Chronic Qualifiers: Hypertension type: essential hypertension Qualified Code(s): I10 - Essential (primary) hypertension (9) Hypothyroid: Reports chronically being on levothyroxine Status: Chronic Qualifiers: Hypothyroidism type: postoperative Qualified Code(s): E89.0 - Postprocedural hypothyroidism (10) Dyslipidemia: Chronically on a statin Status: Chronic (11) 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 Unclear if any history of myositis No h/o glycogen storage disease NS at 30cc/hr Repeat CPK in am Status: Acute Additional A&P Information Disposition: PT consultation. Possible need for SNF at discharge. Attestations Medical Necessity Statement*: Require further hospitalizationFor management of possible UTI requiring IV antibiotics. Time Spent in Patient Care: Greater than 35 minutes (>than 50% of time spent in counselling and/or direct pt care on unit). Coding Level of Care Code Acute Straight Line Press Setter for Chg Fwd Diagnoses Fall at home W19.XXXA; Y92.009 Encounter type: initial encounter Weakness R53.1 Fever R50.9 Fever type: unspecified Cellulitis of right leg L03.115 Chronic anticoagulation Z79.01 Atrial fibrillation I48.91 Atrial fibrillation type: unspecified Diastolic CHF I50.32 Heart failure chronicity: chronic HTN (hypertension) I10 Hypertension type: essential hypertension Hypothyroid E89.0 Hypothyroidism type: postoperative Dyslipidemia E78.5 Borderline diabetes R73.03 Lives alone Z60.2 Rhabdomyolysis M62.82
[2020-11-07] MEDS: sodium chloride 0.9% 1,000 ML 30 ML IV (14:49)
[2020-11-07 15:48] VITALS: BP 136/72; PULSE 66; RESP 18; TEMP 37.1; O2SAT 97
[2020-11-07 16:23] LABS: Coronavirus Test Green County Not Detected
[2020-11-07 17:00] LABS: Glucose Point of Care 112 mg/dL (70-110)
[2020-11-07 20:00] VITALS: BP 151/66; PULSE 80; RESP 17; TEMP 36.3; O2SAT 97
[2020-11-07 20:23] LABS: Glucose Point of Care 205 mg/dL (70-110)
[2020-11-07] MEDS: cefTRIAXone 1,000 MG in sodium chloride 0.9% (plus) 50 ML 100 MG IV (20:35)
[2020-11-08] VITALS (7 sets, daily range): BP systolic 131–147; BP diastolic 63–77; PULSE 60–79; RESP 14–17; TEMP 36.4–37; O2SAT 95–96
[2020-11-08] MEDS: levothyroxine 25 mcg Tablet PO (05:39)
[2020-11-08 06:17] LABS: Basophils % 0.2 %; Eosinophils # 0.1 10^3/uL (0.0-0.8); Eosinophils % 1.6 %; Hematocrit 37.2 % (42.0-52.0); Hemoglobin 12.3 g/dL (11.7-16.6); Lymphocytes # 0.9 10^3/uL (0.8-4.8); Lymphocytes % 10.6 %; Mean Corpuscular HGB Conc 33.1 g/dL (30.0-36.0); Mean Corpuscular Hemoglobin 32.4 pg (28.0-34.0); Mean Corpuscular Volume 97.9 fl (80-94); Mean Platelet Volume 10.4 fL (7.4-10.4); Monocytes # 0.7 10^3/uL (0.2-0.9); Neutrophils # 6.35 10^3/uL (1.8-7.7); Neutrophils % 78.1 %; Nucleated Red Blood Cells % 0 %; Platelet Count 204 10^3/cmm (130-400); White Blood Count 8.1 10^3/uL (4.0-10.0)
[2020-11-08 06:34] LABS: Alanine Aminotransferase 31 U/L (0-41); Alkaline Phosphatase 83 IU/L (40-130); Anion Gap 15.9 (5-19); Aspartate Amino Transferase 64 U/L (0-40); Blood Urea Nitrogen 24 mg/dL (8-23); Calcium 8.4 mg/dL (8.5-10.5); Carbon Dioxide 22 mmol/L (22-29); Chloride 99 mmol/L (98-107); Globulin 3.5 g/dL (1.3-4.6); Glucose 124 mg/dL (65-115); Osmolality Calculated 281 mOsm/kg (285-295); Potassium 3.9 mmol/L (3.5-5.1); Sodium 133 mmol/L (136-145); Total Bilirubin 0.7 mg/dL (0.15-1.2); Total Protein 6.5 g/dL (6.6-8.7)
[2020-11-08 06:40] LABS: Procalcitonin 0.67 ng/mL (0-0.5)
[2020-11-08 06:45] LABS: Glucose Point of Care 140 mg/dL (70-110)
[2020-11-08] MEDS: aspirin 81 mg EC Tablet PO (10:38)
[2020-11-08] MEDS: pantoprazole DR 40 mg Tablet PO (10:38)
[2020-11-08] MEDS: apixaban 5 mg Tablet 2.5 MG PO ×2 (10:38→20:39)
[2020-11-08] MEDS: triamcinolone 0.1% cream 15 gm 1 APPLIC TOPICAL ×2 (10:38→18:12)
[2020-11-08] MEDS: clotrimazole 1% cream 30 gm 1 APPLIC TOPICAL ×2 (10:39→18:12)
[2020-11-08 10:54] LABS: Glucose Point of Care 196 mg/dL (70-110)
--- NOTE | 2020-11-08 15:48 | P.PN_ITS ---
Subjective Subjective: Interval history: 85-year-old male who lives alone after his earlier this year. He presented to the emergency room after a fall at home. He stated that he had been in the bathroom and came out and his knees just gave away. He went straight down. Denies any injury or current pain. He had significant difficulty getting up and was not able to support his weight on his own. His legs felt weak. He was brought in by EMS. He had a fever of 102. He has had a bit of a mild cough today but states that he always has some bit of a morning cough with sputum production, not really any different than baseline. Denies sore throat, loss of taste or smell, headache, body aches. No nausea, vomiting or diarrhea. No known sick contacts with Covid. He did receive Covid vaccination. Work-up in the emergency room revealed abnormal urinalysis although there were some squamous epithelial cells. He denied any difficulty with urination beyond peeing too much sometimes. He had some erythema and edema of his right lower extremity noted. Patient reports that this is chronic in nature, however I do not see indications of this and available records. Patient received some IV fluids and Rocephin in the emergency room. CT of the head as well as abdomen and pelvis were done in the emergency room. He continued to be unable to ambulate and stand on his own without assistance due to general weakness. Given that he lives alone it was not felt safe for him to be discharged home. He is being admitted for further treatment and evaluation as needed. Laboratory workup on admission showed a WBC of 15.8, hemoglobin of 13.3, hematocrit 38.9 and platelet count of 204. Sodium 132, potassium 4.0, chloride 96, bicarb 22, BUN 23 and creatinine 1.0. Urinalysis showed 2+ leukocyte esterase, 25 to 40 wbc's and 2+ bacteria. COVID- 19 antigen was negative. Chest x-ray did not show any evidence of acute abnormality. Head CT was also negative for any acute abnormality. CT of abdomen pelvis did not show any acute abdominal pelvic findings. Was noted to have cardiomegaly with small volume pericardial effusion. Bilateral venous duplexes were negative. Patient was started on ceftriaxone 1 g IV Q 24 hour. Additionally patient was noted have a fever 100.8 on arrival. 11/07/2020 No new clinical events overnight. No new complaints 11/08/2020 No new clinical events. Patient afebrile Medications: Reviewed: Yes Vitals/I&O/Wt Last Vital Signs Temp 97.6 F 11/08/20 15:47 Pulse 68 11/08/20 15:47 Resp 14 11/08/20 15:47 BP 147/63 11/08/20 15:47 Pulse Ox 96 11/08/20 15:47 11/08/20 11/08/20 11/08/20 06:59 14:59 22:59 Intake Total 120 / 1392.5 480 / 480 Output Total 250 / 525 600 / 600 Balance -130 / 867.5 -120 / -120 Weight last 48 hrs Weight 131.258 kg Weight 127.006 kg Weight 136.078 kg Physical Exam Narrative: EXAM NARRATIVE: Constitutional: awake alert HEENT: Patient with some healing sores on forehead and cheek from prior biopsy sites. Has a nodular nose. Arcus senilis is noted. Extraocular movements are intact. Mucous membranes are moist. Neck: Supple Respiratory: Clear to auscultation bilaterally without any rales or rhonchi noted, no wheezes Cardiovascular: Regular rhythm, occasional skipped beat, 2+ pulses Abdomen: Soft, nontender, positive bowel sounds : Normal external genitalia Extremities: Pitting edema is noted to bilateral distal extremities, right greater than left but unchanged per the patient's family Skin: Dry, evidence of sun exposure, several biopsy sites in different stages of healing Neuro: Speech clear, handgrip equal, moves both feet, gait not currently assessed Psych: Cooperative Data : 11/08/20 05:16 11/08/20 05:16 Micro: Microbiology 11/06/20 17:58 Urine Culture - Preliminary Urine,Clean Catch Enterococcus species 11/06/20 18:32 Blood Culture - Preliminary Blood NEGATIVE TO DATE 11/06/20 18:30 Blood Culture - Preliminary Blood NEGATIVE TO DATE A&P Assessment and plan (1) Fall at home: Possibly due to weakness from infectious process PT consultation Fall precautions Echocardiogram Status: Acute Qualifiers: Encounter type: initial encounter Qualified Code(s): W19.XXXA - Unspecified fall, initial encounter; Y92.009 - Unspecified place in unspecified non-institutional (private) residence as the place of occurrence of the external cause (2) Weakness: Generalized Status: Acute (3) Fever: T-max 100.8 - Improved Blood cultures x2 - NGTD Urine cultures - Enterococcus Continue Rocephin 1 g IV Q 24 Tylenol p.r.n. for fever Further antibiotics based on culture and clinical course Status: Acute Qualifiers: Fever type: unspecified Qualified Code(s): R50.9 - Fever, unspecified (4) Cellulitis of right leg: Patient reports chronic but unclear in available records Does not appear to be acutely infected Status: Acute (5) Chronic anticoagulation: Eliquis Status: Acute (6) Atrial fibrillation: Not chronically on any rate control medications Eliquis for CVA prevention Status: Chronic Qualifiers: Atrial fibrillation type: unspecified Qualified Code(s): I48.91 - Unspecified atrial fibrillation (7) Diastolic CHF: Chronically on Lasix and spironolactone Status: Chronic Qualifiers: Heart failure chronicity: chronic Qualified Code(s): I50.32 - Chronic diastolic (congestive) heart failure (8) HTN (hypertension): Treated with diuretic therapy Status: Chronic Qualifiers: Hypertension type: essential hypertension Qualified Code(s): I10 - Essential (primary) hypertension (9) Hypothyroid: Reports chronically being on levothyroxine Status: Chronic Qualifiers: Hypothyroidism type: postoperative Qualified Code(s): E89.0 - Postprocedural hypothyroidism (10) Dyslipidemia: Chronically on a statin Status: Chronic (11) 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 Unclear if any history of myositis No h/o glycogen storage disease NS at 30cc/hr Repeat CPK in am Monitor urine output Status: Acute Additional A&P Information Disposition: PT consultation. Possible need for SNF at discharge. Attestations Medical Necessity Statement*: Require further hospitalization for management of infection requiring IV antibiotics Time Spent in Patient Care: Greater than 35 minutes (>than 50% of time spent in counselling and/or direct pt care on unit) . Coding Level of Care Code Acute [employer] Assembler for Chg Fwd Diagnoses Fall at home W19.XXXA; Y92.009 Encounter type: initial encounter Weakness R53.1 Fever R50.9 Fever type: unspecified Cellulitis of right leg L03.115 Chronic anticoagulation Z79.01 Atrial fibrillation I48.91 Atrial fibrillation type: unspecified Diastolic CHF I50.32 Heart failure chronicity: chronic HTN (hypertension) I10 Hypertension type: essential hypertension Hypothyroid E89.0 Hypothyroidism type: postoperative Dyslipidemia E78.5 Borderline diabetes R73.03 Lives alone Z60.2 Rhabdomyolysis M62.82
[2020-11-08 16:49] LABS: Glucose Point of Care 136 mg/dL (70-110)
[2020-11-08] MEDS: cefTRIAXone 1,000 MG in sodium chloride 0.9% (plus) 50 ML 100 MG IV (20:39)
--- NOTE | 2020-11-08 22:30 | PC.NURSE ---
PT CARE TAKEN OVER FROM NURSE CORAL Trejo LPN
[2020-11-09] VITALS: BP 138/74; PULSE 81; RESP 16; TEMP 36.6; O2SAT 98
[2020-11-09 04:00] VITALS: BP 134/70; PULSE 83; RESP 16; TEMP 36.6; O2SAT 98
[2020-11-09 05:19] LABS: Basophils % 0.3 %; Eosinophils # 0.2 10^3/uL (0.0-0.8); Eosinophils % 2.9 %; Hematocrit 36.5 % (42.0-52.0); Hemoglobin 12.3 g/dL (11.7-16.6); Lymphocytes # 0.9 10^3/uL (0.8-4.8); Mean Corpuscular HGB Conc 33.7 g/dL (30.0-36.0); Mean Corpuscular Hemoglobin 32.3 pg (28.0-34.0); Mean Corpuscular Volume 95.8 fl (80-94); Mean Platelet Volume 10.2 fL (7.4-10.4); Monocytes # 0.5 10^3/uL (0.2-0.9); Monocytes % 8.9 %; Neutrophils # 4.25 10^3/uL (1.8-7.7); Neutrophils % 72.6 %; Nucleated Red Blood Cells % 0 %; Platelet Count 228 10^3/cmm (130-400); Red Blood Count 3.81 10^6/uL (4.1-5.3); Red Cell Distribution Width 13.6 % (12.1-15.1); White Blood Count 5.9 10^3/uL (4.0-10.0)
[2020-11-09 05:33] LABS: Alanine Aminotransferase 33 U/L (0-41); Albumin Level 3.1 g/dL (3.5-5.2); Alkaline Phosphatase 85 IU/L (40-130); Aspartate Amino Transferase 56 U/L (0-40); Blood Urea Nitrogen 18 mg/dL (8-23); Calcium 8.1 mg/dL (8.5-10.5); Carbon Dioxide 23 mmol/L (22-29); Chloride 105 mmol/L (98-107); Globulin 3.2 g/dL (1.3-4.6); Glucose 131 mg/dL (65-115); Osmolality Calculated 290 mOsm/kg (285-295); Sodium 138 mmol/L (136-145); Total Bilirubin 0.5 mg/dL (0.15-1.2); Total Protein 6.3 g/dL (6.6-8.7)
[2020-11-09 05:38] LABS: Creatine Phosphokinase 827 U/L (39-308)
[2020-11-09 05:39] LABS: Procalcitonin 0.41 ng/mL (0-0.5)
--- NOTE | 2020-11-09 05:41 | PC.NURSE ---
CL CALLED FROM LAB R/T CK OF 827 DOWN FROM 1885. PROVIDER FRASE NOTIFIED, NO NEW ORDERS AT THIS TIME
[2020-11-09 06:00] VITALS: BMI 37.1
[2020-11-09 06:17] LABS: Glucose Point of Care 125 mg/dL (70-110)
[2020-11-09] MEDS: levothyroxine 25 mcg Tablet PO (06:36)
[2020-11-09 07:47] VITALS: BP 161/79; PULSE 68; RESP 18; TEMP 36.5; O2SAT 95
[2020-11-09] MEDS: apixaban 5 mg Tablet 2.5 MG PO (09:29)
[2020-11-09] MEDS: pantoprazole DR 40 mg Tablet PO (09:30)
[2020-11-09] MEDS: triamcinolone 0.1% cream 15 gm 1 APPLIC TOPICAL (09:30)
[2020-11-09] MEDS: aspirin 81 mg EC Tablet PO (09:30)
[2020-11-09] MEDS: clotrimazole 1% cream 30 gm 1 APPLIC TOPICAL (09:30)
[2020-11-09] MEDS: sodium chloride 0.9% 1,000 ML 30 ML IV (09:32)
[2020-11-09 11:24] LABS: Glucose Point of Care 142 mg/dL (70-110)
[2020-11-09 11:34] VITALS: BP 152/82; PULSE 60; RESP 20; TEMP 36.6; O2SAT 97
--- NOTE | 2020-11-09 15:07 | P.DS_ITS ---
Discharge Providers Date of Admission: 11/07/20 15:16 Date of Discharge: November 09, 2020 Attending Provider at Admission: Kamila Starks MD Attending Provider at Discharge: Radha Cruz Primary Care Provider: Noel You MD Diagnoses at Discharge Discharge Diagnosis (1) Fall at home: Status: Acute Qualifiers: Encounter type: initial encounter Qualified Code(s): W19.XXXA - Unspecified fall, initial encounter; Y92.009 - Unspecified place in unspecified non-institutional (private) residence as the place of occurrence of the external cause (2) Weakness: Status: Acute (3) Fever: Status: Acute Qualifiers: Fever type: unspecified Qualified Code(s): R50.9 - Fever, unspecified (4) Cellulitis of right leg: Status: Resolved (5) Chronic anticoagulation: Status: Resolved Permanent problem details: eliquis (6) Atrial fibrillation: Status: Chronic Qualifiers: Atrial fibrillation type: unspecified Qualified Code(s): I48.91 - Unspecified atrial fibrillation (7) Diastolic CHF: Status: Chronic Qualifiers: Heart failure chronicity: chronic Qualified Code(s): I50.32 - Chronic diastolic (congestive) heart failure (8) HTN (hypertension): Status: Chronic Qualifiers: Hypertension type: essential hypertension Qualified Code(s): I10 - Essential (primary) hypertension (9) Hypothyroid: Status: Chronic Qualifiers: Hypothyroidism type: postoperative Qualified Code(s): E89.0 - Postprocedural hypothyroidism (10) Dyslipidemia: Status: Chronic (11) Borderline diabetes: Status: Resolved (12) Lives alone: Status: Acute (13) Rhabdomyolysis: Status: Resolved Reason for Visit Reason for Visit: WEAKNESS, FEVER Hospital Course Hospital Course 85-year-old male who lives alone after his earlier this year. He presented to the emergency room after a fall at home. He stated that he had been in the bathroom and came out and his knees just gave away. He went straight down. Denies any injury or current pain. He had significant difficulty getting up and was not able to support his weight on his own. His legs felt weak. He was brought in by EMS. He had a fever of 102. He has had a bit of a mild cough today but states that he always has some bit of a morning cough with sputum production, not really any different than baseline. Denies sore throat, loss of taste or smell, headache, body aches. No nausea, vomiting or diarrhea. No known sick contacts with Covid. He did receive Covid vaccination. Work-up in the emergency room revealed abnormal urinalysis although there were some squamous epithelial cells. He denied any difficulty with urination beyond peeing too much sometimes. He had some erythema and edema of his right lower extremity noted. Patient reports that this is chronic in nature, however I do not see indications of this and available records. Patient received some IV fluids and Rocephin in the emergency room. CT of the head as well as abdomen and pelvis were done in the emergency room. He continued to be unable to ambulate and stand on his own without assistance due to general weakness. Given that he lives alone it was not felt safe for him to be discharged home. He is being admitted for further treatment and evaluation as needed. Laboratory workup on admission showed a WBC of 15.8, hemoglobin of 13.3, hematocrit 38.9 and platelet count of 204. Sodium 132, potassium 4.0, chloride 96, bicarb 22, BUN 23 and creatinine 1.0. Urinalysis showed 2+ leukocyte esterase, 25 to 40 wbc's and 2+ bacteria. COVID-19 antigen was negative. Chest x-ray did not show any evidence of acute abnormality. Head CT was also negative for any acute abnormality. CT of abdomen pelvis did not show any acute abdominal pelvic findings. Was noted to have cardiomegaly with small volume pericardial effusion. Bilateral venous duplexes were negative. Patient was started on ceftriaxone 1 g IV Q 24 hour. Additionally patient was noted have a fever 100.8 on arrival.Continued on IV abx. Clinically had noted sig improvement. Discharged in stable condition on oral abx. Physical Exam Narrative: EXAM NARRATIVE: Constitutional: awake alert HEENT: Patient with some healing sores on forehead and cheek from prior biopsy sites. Has a nodular nose. Arcus senilis is noted. Extraocular movements are intact. Mucous membranes are moist. Neck: Supple Respiratory: Clear to auscultation bilaterally without any rales or rhonchi noted, no wheezes Cardiovascular: Regular rhythm, occasional skipped beat, 2+ pulses Abdomen: Soft, nontender, positive bowel sounds : Normal external genitalia Extremities: Pitting edema is noted to bilateral distal extremities, right greater than left but unchanged per the patient's family Skin: Dry, evidence of sun exposure, several biopsy sites in different stages of healing Neuro: Speech clear, handgrip equal, moves both feet, gait not currently assessed Psych: Cooperative Discharge Data Data Completed and Pending: Completed Studies During Hospitalization Category Date Time Status CT abdomen pelvis w con* [id number] Urge nt Cat Scan 11/06/20 20:[address] head wo con* 7 [id number] Urgent Cat Scan 11/06/20 18:06 Completed XR chest 1V amisha ble [id number] Stat Exams 11/06/20 17:44 [place] [id number] Routin e Ultrasound 11/07/20 05:44 Completed CV. echo limited [id number] Routine Ultrasound 11/07/20 05:50 Completed Pending at discharge Category Date Time Status Blood Culture Sta t Lab 11/06/20 18:30 Results Labs from last 24 hours 11/09/20 11/09/20 11/09/20 10:54 05:52 04:28 WBC 5.9 RBC 3.81 L Hgb 12.3 Hct 36.5 L MCV 95.8 H MCH 32.3 MCHC 33.7 RDW 13.6 Plt Count 228 MPV 10.2 Neut % (Auto) 72.6 Lymph % (Auto) 15.0 [place] % (Auto) 8.9 Eos % (Auto) 2.9 Baso % (Auto) 0.3 Neut # (Auto) 4.25 Lymph # (Auto) 0.9 [place] # (Auto) 0.5 Eos # (Auto) 0.2 Baso # (Auto) 0.0 Nucleated RBC % (a uto) 0 Nucleated RBCs # 0.0 Sodium Potassium Chloride Carbon Dioxide Anion Gap BUN Creatinine GFR Calculation Glucose POC Glucose 142 H 125 H Calculated Osmolal ity Calcium Total Bilirubin AST ALT Alkaline Phosphata se Creatine Kinase Total Protein Albumin Globulin Procalcitonin 11/09/20 11/08/20 04:28 16:38 WBC RBC Hgb Hct MCV MCH MCHC RDW Plt Count MPV Neut % (Auto) Lymph % (Auto) [place] % (Auto) Eos % (Auto) Baso % (Auto) Neut # (Auto) Lymph # (Auto) [place] # (Auto) Eos # (Auto) Baso # (Auto) Nucleated RBC % (a uto) Nucleated RBCs # Sodium 138 Potassium 4.0 Chloride 105 Carbon Dioxide 23 Anion Gap 14.0 BUN 18 Creatinine 0.9 GFR Calculation Not Reportable Glucose 131 H POC Glucose 136 H Calculated Osmolal ity 290 Calcium 8.1 L Total Bilirubin 0.5 AST 56 H ALT 33 Alkaline Phosphata se 85 Creatine Kinase 827 H* Total Protein 6.3 L Albumin 3.1 L Globulin 3.2 Procalcitonin 0.41 Vitals: Last Vital Signs Temp 97.8 F 11/09/20 11:34 Pulse 60 11/09/20 11:34 Resp 20 H 11/09/20 11:34 BP 152/82 11/09/20 11:34 Pulse Ox 97 11/09/20 11:34 Discharge Plan Discharge Patient Disposition: Home Condition: Stable Prescriptions: Continued furosemide 40 mg tablet 40 mg PO DAILY RF: 0 famotidine 40 mg tablet 40 mg PO BID RF: 0 aspirin 81 mg Tablet,Delayed Release (Dr/Ec) 81 mg PO DAILY RF: 0 triamcinolone acetonide 0.1 % cream See Rx Instructions .ROUTE .COMPLEX RF: 0 metformin 500 mg tablet extended release 24 hr 500 mg PO DAILY RF: 0 clotrimazole 1 % cream 1 applic TOPICAL BID RF: 0 spironolactone 50 mg tablet 50 mg PO DAILY RF: 0 Eliquis 2.5 mg Tablet 2.5 mg PO BID RF: 0 levothyroxine See Rx Instructions .ROUTE .COMPLEX RF: 0 Discharge Orders: Discharge Order (Routine); Ordered 11/09/20 Ordered By: Radha Cruz Referrals: Noel You MD [Primary Care Provider] - 11/14/20 3:45 pm Discharge Diet: Usual diet Discharge Activity: Increase activity as tolerated Patient Instructions: Cellulitis, Nitrofurantoin Combination (By mouth), Heart Failure (DC), Rhabdomyolysis (DC), CHF Stoplight, Opioid Safety Discharge Attestations Time Spent in Discharge Care*: greater than 30 min Specific Discharge Activities: educating patient, discussing with caseworker/social workers/dc planners, documenting/other paperwork and evaluating patient/reviewing data Status at Discharge: Cognitive status at discharge: cognitively intact , Behavioral status at discharge: cooperative , Functional status at discharge: other assisted ambulation Overall status at discharge: patient is progressing back to baseline Quality Metrics Clinical Quality Measures During this hospital stay, did patient experience: None Coding Level of Care Code Acute Chg FW DC note Diagnoses Fall at home W19.XXXA; Y92.009 Encounter type: initial encounter Weakness R53.1 Fever R50.9 Fever type: unspecified Cellulitis of right leg L03.115 Chronic anticoagulation Z79.01 Atrial fibrillation I48.91 Atrial fibrillation type: unspecified Diastolic CHF I50.32 Heart failure chronicity: chronic HTN (hypertension) I10 Hypertension type: essential hypertension Hypothyroid E89.0 Hypothyroidism type: postoperative Dyslipidemia E78.5 Borderline diabetes R73.03 Lives alone Z60.2 Rhabdomyolysis M62.82
[2020-11-09 15:50] VITALS: BP 167/78; PULSE 67; RESP 18; TEMP 36.3; O2SAT 97
[2020-11-09 16:07] VITALS: BP 167/78; PULSE 67; RESP 18; TEMP 36.3; O2SAT 97
--- NOTE | 2020-11-15 15:49 | PC.SOCIAL ---
discharge follow up call made, message left.
== END 2020-11-09 16:00 | disposition home or self-care (01) | DRG 603 ==
LOC: ER 17:53 → MEDSURG 22:21
PROVIDERS: Family Medicine; Admitting Provider Hospitalist; Emergency Provider Emergency Medicine; PCP Family Medicine; Visit Provider Hospitalist
DX: L03.115 Cellulitis of right lower limb (principal); I50.32 Chronic diastolic (congestive) heart failure; M62.82 Rhabdomyolysis; E03.9 Hypothyroidism, unspecified; W19.XXXA Unspecified fall, initial encounter; Y93.9 Activity, unspecified; Y92.002 Bathroom of unspecified non-institutional (private) residence as the place of occurrence of the external cause; E78.5 Hyperlipidemia, unspecified; I48.91 Unspecified atrial fibrillation; I11.0 Hypertensive heart disease with heart failure; E11.9 Type 2 diabetes mellitus without complications; Z20.822 Contact with and (suspected) exposure to COVID-19; Z79.01 Long term (current) use of anticoagulants; Z98.49 Cataract extraction status, unspecified eye; Z87.891 Personal history of nicotine dependence; Z88.0 Allergy status to penicillin; Z79.82 Long term (current) use of aspirin; Z79.4 Long term (current) use of insulin
CPT/HCPCS: 36415; 36416; 70450; 71045; 74177; 80048; 80053; 81001; 82550; 82962; 83605; 83735; 83880; 84100; 84145; 84443; 85025; 87040; 87077; 87086; 87186; 87426; 87635; 93005; 93308; 93970; 96365; 96372; 97110; 97116; 97162; 99285; G0378; J0696; J1815; J7030; Q9967

== ENCOUNTER → 2020-12-06 13:00 | Outpatient (BNVA) | payer MEDICARE, BC, SELFPAY | PROVIDERS: PCP Family Medicine; Visit Provider Dermatology | DX: D48.9 Neoplasm of uncertain behavior, unspecified (principal); C44.91 Basal cell carcinoma of skin, unspecified; D03.9 Melanoma in situ, unspecified; T81.49XA Infection following a procedure, other surgical site, initial encounter | CPT/HCPCS: 87070; 87077; 87186 ==

== ENCOUNTER 2022-03-19 16:50 | Emergency (ER) | payer MEDICARE, BC, SELFPAY ==
[2022-03-19 17:05] VITALS: BP 128/76; PULSE 85; RESP 19; TEMP 36.9; O2SAT 97; BMI 35.9
[2022-03-19 17:40] VITALS: BP 132/75; PULSE 89; O2SAT 94
[2022-03-19 17:45] LABS: Basophils # 0.1 10^3/uL (0.0-0.1); Basophils % 0.5 %; Eosinophils # 0.1 10^3/uL (0.0-0.8); Eosinophils % 0.6 %; Hemoglobin 13.8 g/dL (11.7-16.6); Lymphocytes # 0.7 10^3/uL (0.8-4.8); Mean Corpuscular HGB Conc 33.7 g/dL (30.0-36.0); Mean Corpuscular Hemoglobin 31.9 pg (28.0-34.0); Mean Corpuscular Volume 94.7 fl (80-94); Monocytes % 7.2 %; Neutrophils # 12.42 10^3/uL (1.8-7.7); Nucleated Red Blood Cells % 0 %; Platelet Count 299 10^3/cmm (130-400); Red Blood Count 4.33 10^6/uL (4.1-5.3); Red Cell Distribution Width 12.4 % (12.1-15.1); White Blood Count 14.4 10^3/uL (4.0-10.0)
--- NOTE | 2022-03-19 17:53 | ED_ITS ---
Documented by User: Braydon Guallpa DO 03/20/22 06:22 HPI - Male Genitourinary General: Chief complaint: Urogenital-Male Stated complaint: Can't urinate Time Seen by Provider: 03/19/22 17:12 Source: patient Mode of arrival: ambulatory History of Present Illness: 87-year-old male presents emergency room not having been able to go to the bathroom fully in the last 24 hours. Beginning this morning he was not able to empty his bladder gotten progressively worse cramping and uncomfortable he had a little bit of dribbling at most. He was seen at local primary care clinic they attempted to place Palencia and were not able. Onset (ago): hour(s) Duration: constant Severity: moderate Quality: aching Relieving factors: none Exacerbating factors: none Associated symptoms: Reports urinary retention; Deny discharge, dysuria, fevers/chills, hematuria, nausea, rash, swelling, urinary incontinence, mass or vomiting Review of Systems Const: Denies: fever(s), chills, body aches, change in appetite, fatigue or malaise ENMT: Denies: throat pain, ear or mastoid pain, nasal discharge or nasal congestion Card: Denies: chest pain, edema, dyspnea on exertion or orthopnea Resp: Denies: dyspnea, productive cough or non-productive cough GI: Reports: abdominal pain; Denies: nausea or vomiting : Reports: difficulty urinating, urinary dribbling, difficulty starting urination and oliguria; Denies: dysuria, urinary incontinence or hematuria Skin/Breast: Denies: rash or pruritus PFSH ED PFSH: Medical History Atrial fibrillation Basal cell carcinoma Borderline diabetes COVID-19 vaccine administered Moderna Diastolic CHF Dyslipidemia History of rhabdomyolysis HTN (hypertension) Hypothyroid Malignant melanoma in situ Postprocedural wound infection Prostatic hypertrophy Squamous cell carcinoma in situ Surgical History History of bilateral knee replacement History of cataract surgery History of inguinal hernia repair History of thyroidectomy For Hurthle cell carcinoma Social History Smoking and tobacco status: former smoker Alcohol intake: current Alcohol intake frequency: holidays/special occasions only Household members: none Marital status: / Physical Exam Const: GENERAL APPEARANCE: cooperative and comfortable ORIENT ATION/CONSCIOUSNESS: Yes awake, Yes oriented to person, Yes oriented to place and Yes oriented to time HENMT: COMMON NORMALS: normocephalic, atraumatic and hearing grossly normal bilaterally HEAD & SCALP: normocephalic and atraumatic Resp: COMMON NORMALS: normal respiratory effort, No retractions, No use of accessory muscles and clear to auscultation bilaterally AUSCULTATION: clear to auscultation bilaterally Cardio: COMMON NORMALS: regular rate, regular rhythm and No murmurs present (Cardio) RATE: regular rate RHYTHM: regular rhythm GI: COMMON NORMALS: No hepatosplenomegaly present AUSCULTATION: Yes normoactive bowel sounds PALPATION: Yes Tenderness to palpation present (GI) (Suprapubic), No Guarding due to palpation present (GI) and Yes No hepatosplenomegaly present Extremity: COMMON NORMALS: normal to inspection, capillary refill normal, no clubbing, cyanosis or edema, no calf tenderness and no pedal edema Neuro: SENSORIUM/ORIENTATION: Yes oriented to person, Yes oriented to place and Yes oriented to time Skin: COMMON NORMALS: no rashes or lesions noted GENERAL SKIN EXAM: no rashes or lesions noted Course Vital Signs: Vital signs: Vital Signs Temperature 98.5 F 03/19/22 17:05 Pulse Rate 82 03/19/22 18:38 Respiratory Rate 19 H 03/19/22 17:05 Blood Pressure 138/62 03/19/22 18:38 Pulse Oximetry 96 03/19/22 18:38 Oxygen Delivery Me thod 03/19/22 17:05 MDM - Male Medical Decision Making Care signed out to Dr. Back at change of shift. See final notes for diagnosis and disposition. Patient presents here with urinary retention he had 1500 out after Palencia was placed he feels much improved we will leave indwelling Palencia with a leg bag and have patient follow-up with Dr. Richter he is return if worsening he understa nds agrees to plan. Lab Data 03/19/22 17:41 03/19/22 17:41 Laboratory Results WBC 14.4 10^3/uL (4.0-10.0) H 03/19/22 17:41 RBC 4.33 10^6/uL (4.1-5.3) 03/19/22 17:41 Hgb 13.8 g/dL (11.7-16.6) 03/19/22 17:41 Hct 41.0 % (42.0-52.0) L 03/19/22 17:41 MCV 94.7 fl (80-94) H 03/19/22 17:41 MCH 31.9 pg (28.0-34.0) 03/19/22 17:41 MCHC 33.7 g/dL (30.0-36.0) 03/19/22 17:41 RDW 12.4 % (12.1-15.1) 03/19/22 17:41 Plt Count 299 10^3/cmm (130-400) 03/19/22 17:41 MPV 9.0 fL (7.4-10.4) 03/19/22 17:41 Neut % (Auto) 86.0 % 03/19/22 17:41 Lymph % (Auto) 5.0 % 03/19/22 17:41 [place] % (Auto) 7.2 % 03/19/22 17:41 Eos % (Auto) 0.6 % 03/19/22 17:41 Baso % (Auto) 0.5 % 03/19/22 17:41 Neut # (Auto) 12.42 10^3/uL (1.8-7.7) H 03/19/22 17:41 Lymph # (Auto) 0.7 10^3/uL (0.8-4.8) L 03/19/22 17:41 [place] # (Auto) 1.0 10^3/uL (0.2-0.9) H 03/19/22 17:41 Eos # (Auto) 0.1 10^3/uL (0.0-0.8) 03/19/22 17:41 Baso # (Auto) 0.1 10^3/uL (0.0-0.1) 03/19/22 17:41 Nucleated RBC % (auto) 0 % 03/19/22 17:41 Nucleated RBCs # 0.0 /100WBC 03/19/22 17:41 Sodium 130 mmol/L (136-145) L 03/19/22 17:41 Potassium 4.7 mmol/L (3.5-5.1) 03/19/22 17:41 Chloride 95 mmol/L (98-107) L 03/19/22 17:41 Carbon Dioxide 24 mmol/L (22-29) 03/19/22 17:41 Anion Gap 15.7 (5-19) 03/19/22 17:41 BUN 32 mg/dL (8-23) H 03/19/22 17:41 Creatinine 1.9 mg/dL (0.7-1.2) H 03/19/22 17:41 GFR Calculation Not Reportable 03/19/22 17:41 Glucose 169 mg/dL (65-115) H 03/19/22 17:41 Calculated Osmolality 281 mOsm/kg (285-295) L 03/19/22 17:41 Calcium 9.7 mg/dL (8.5-10.5) 03/19/22 17:41 Discharge Plan Discharge Patient Disposition: Home Clinical Impression: Acute retention of urine Condition: Stable Prescriptions: No Action furosemide 40 mg tablet 40 mg PO DAILY famotidine 40 mg tablet 40 mg PO BID aspirin 81 mg Tablet,Delayed Release (Dr/Ec) 81 mg PO DAILY triamcinolone acetonide 0.1 % cream See Rx Instructions .ROUTE .COMPLEX Rx Instructions: applic topically as directed metformin 500 mg tablet extended release 24 hr 500 mg PO DAILY spironolactone 50 mg tablet 50 mg PO DAILY Rx Instructions: SEE PHARMACY COMMET Eliquis 2.5 mg Tablet 2.5 mg PO BID levothyroxine See Rx Instructions .ROUTE .COMPLEX Rx Instructions: TAKE DIRECTED Discharge Orders: Discharge ED (Routine); Ordered 03/19/22 Ordered By: Jairo Back Referrals: Tyshawn Richter MD [Physician] - 1-3 days Noel You MD [Primary Care Provider] - Discharge Diet: Advance as tolerated Discharge Activity: Resume usual activity Patient Instructions: Urinary Retention in Men (ED), Palencia Catheter Placement and Care (ED) Coding Level of Care Code ED Campground Manager for Chg Fwd Documented by User: Jairo Back MD 03/19/22 18:39 HPI - Male Genitourinary General: Chief complaint: Urogenital-Male Stated complaint: Can't urinate Time Seen by Provider: 03/19/22 17:12 PFSH ED PFSH: Medical History Atrial fibrillation Basal cell carcinoma Borderline diabetes COVID-19 vaccine administered Moderna Diastolic CHF Dyslipidemia History of rhabdomyolysis HTN (hypertension) Hypothyroid Malignant melanoma in situ Postprocedural wound infection Prostatic hypertrophy Squamous cell carcinoma in situ Surgical History History of bilateral knee replacement History of cataract surgery History of inguinal hernia repair History of thyroidectomy For Hurthle cell carcinoma Social History Smoking and tobacco status: former smoker Alcohol intake: current Alcohol intake frequency: holidays/special occasions only Household members: none Marital status: / Course Vital Signs: Vital signs: Vital Signs Temperature 98.5 F 03/19/22 17:05 Pulse Rate 82 03/19/22 18:38 Respiratory Rate 19 H 03/19/22 17:05 Blood Pressure 138/62 03/19/22 18:38 Pulse Oximetry 96 03/19/22 18:38 Oxygen Delivery Me thod 03/19/22 17:05 MDM - Male Medical Decision Making Patient presents here with urinary retention he had 1500 out after Palencia was placed he feels much improved we will leave indwelling Palencia with a leg bag and have patient follow-up with Dr. Richter he is return if worsening he understands agrees to plan. Lab Data 03/19/22 17:41 03/19/22 17:41 Laboratory Results WBC 14.4 10^3/uL (4.0-10.0) H 03/19/22 17:41 RBC 4.33 10^6/uL (4.1-5.3) 03/19/22 17:41 Hgb 13.8 g/dL (11.7-16.6) 03/19/22 17:41 Hct 41.0 % (42.0-52.0) L 03/19/22 17:41 MCV 94.7 fl (80-94) H 03/19/22 17:41 MCH 31.9 pg (28.0-34.0) 03/19/22 17:41 MCHC 33.7 g/dL (30.0-36.0) 03/19/22 17:41 RDW 12.4 % (12.1-15.1) 03/19/22 17:41 Plt Count 299 10^3/cmm (130-400) 03/19/22 17:41 MPV 9.0 fL (7.4-10.4) 03/19/22 17:41 Neut % (Auto) 86.0 % 03/19/22 17:41 Lymph % (Auto) 5.0 % 03/19/22 17:41 [place] % (Auto) 7.2 % 03/19/22 17:41 Eos % (Auto) 0.6 % 03/19/22 17:41 Baso % (Auto) 0.5 % 03/19/22 17:41 Neut # (Auto) 12.42 10^3/uL (1.8-7.7) H 03/19/22 17:41 Lymph # (Auto) 0.7 10^3/uL (0.8-4.8) L 03/19/22 17:41 [place] # (Auto) 1.0 10^3/uL (0.2-0.9) H 03/19/22 17:41 Eos # (Auto) 0.1 10^3/uL (0.0-0.8) 03/19/22 17:41 Baso # (Auto) 0.1 10^3/uL (0.0-0.1) 03/19/22 17:41 Nucleated RBC % (auto) 0 % 03/19/22 17:41 Nucleated RBCs # 0.0 /100WBC 03/19/22 17:41 Sodium 130 mmol/L (136-145) L 03/19/22 17:41 Potassium 4.7 mmol/L (3.5-5.1) 03/19/22 17:41 Chloride 95 mmol/L (98-107) L 03/19/22 17:41 Carbon Dioxide 24 mmol/L (22-29) 03/19/22 17:41 Anion Gap 15.7 (5-19) 03/19/22 17:41 BUN 32 mg/dL (8-23) H 03/19/22 17:41 Creatinine 1.9 mg/dL (0.7-1.2) H 03/19/22 17:41 GFR Calculation Not Reportable 03/19/22 17:41 Glucose 169 mg/dL (65-115) H 03/19/22 17:41 Calculated Osmolality 281 mOsm/kg (285-295) L 03/19/22 17:41 Calcium 9.7 mg/dL (8.5-10.5) 03/19/22 17:41 Discharge Plan Discharge Patient Disposition: Home Clinical Impression: Acute retention of urine Condition: Stable Prescriptions: No Action furosemide 40 mg tablet 40 mg PO DAILY famotidine 40 mg tablet 40 mg PO BID aspirin 81 mg Tablet,Delayed Release (Dr/Ec) 81 mg PO DAILY triamcinolone acetonide 0.1 % cream See Rx Instructions .ROUTE .COMPLEX Rx Instructions: applic topically as directed metformin 500 mg tablet extended release 24 hr 500 mg PO DAILY spironolactone 50 mg tablet 50 mg PO DAILY Rx Instructions: SEE PHARMACY COMMET Eliquis 2.5 mg Tablet 2.5 mg PO BID levothyroxine See Rx Instructions .ROUTE .COMPLEX Rx Instructions: TAKE DIRECTED Discharge Orders: Discharge ED (Routine); Ordered 03/19/22 Ordered By: Jairo Back Referrals: Tyshawn Richter MD [Physician] - 1-3 days Noel You MD [Primary Care Provider] - Discharge Diet: Advance as tolerated Discharge Activity: Resume usual activity Patient Instructions: Urinary Retention in Men (ED), Palencia Catheter Placement and Care (ED) Coding Level of Care Code ED Campground Manager for Katt Napier
[2022-03-19 18:08] LABS: Anion Gap 15.7 (5-19); Blood Urea Nitrogen 32 mg/dL (8-23); Calcium 9.7 mg/dL (8.5-10.5); Carbon Dioxide 24 mmol/L (22-29); Chloride 95 mmol/L (98-107); Glucose 169 mg/dL (65-115); Osmolality Calculated 281 mOsm/kg (285-295); Potassium 4.7 mmol/L (3.5-5.1); Sodium 130 mmol/L (136-145)
[2022-03-19 18:38] VITALS: BP 138/62; PULSE 82; O2SAT 96
--- NOTE | 2022-03-20 09:39 | DCPLANNER ---
Addendum entered by Lilliam Valencia 04/11/22 14:50: Patient had a follow up appointment scheduled with urology - patient did attend appointment Addendum entered by Lilliam Valencia 03/20/22 11:14: Patient has a follow up appointment scheduled for Monday, April 04, 2022 at 10:[address] Richter at urology. Clinic will call patient with appointment information. Original Note: compliance program manager had message to schedule a follow up appointment for patient with urology. compliance program manager sent patients information to the front office staff at urology. Patients information will be printed and reviewed. Clinic will call patient with appointment information.
== END 2022-03-19 19:19 | disposition home or self-care (01) ==
PROVIDERS: Family Medicine; Emergency Provider Emergency Medicine; PCP Family Medicine
DX: R33.9 Retention of urine, unspecified (principal); Z79.01 Long term (current) use of anticoagulants; Z79.84 Long term (current) use of oral hypoglycemic drugs; Z79.82 Long term (current) use of aspirin; Z87.891 Personal history of nicotine dependence; I11.0 Hypertensive heart disease with heart failure; I50.30 Unspecified diastolic (congestive) heart failure; E78.5 Hyperlipidemia, unspecified
CPT/HCPCS: 36415; 51702; 80048; 85025; 99283

== ENCOUNTER → 2022-04-04 08:59 | Outpatient (BNVA) | payer MEDICARE, BC, SELFPAY | PROVIDERS: PCP Family Medicine; Visit Provider Urology | DX: R33.8 Other retention of urine (principal) | CPT/HCPCS: 99203 ==

== ENCOUNTER 2022-04-12 17:55 | Emergency (ER) | payer MEDICARE, BC, SELFPAY ==
[2022-04-12] VITALS (7 sets, daily range): BP systolic 111–124; BP diastolic 48–62; PULSE 78–95; RESP 14–20; TEMP 37.1; O2SAT 91–98
--- NOTE | 2022-04-12 18:40 | XRR_ITS ---
PROCEDURE INFORMATION: Exam: XR Chest Exam date and time: 04/12/2022 7:35 PM Age: 87 years old Clinical indication: Patient HX: Shortness of breath ; wheezing; Additional info: SOB TECHNIQUE: Imaging protocol: Radiologic exam of the chest. Views: 1 view. COMPARISON: CR XR chest 1V portable [id number] 11/06/2020 6:05 PM FINDINGS: Lungs: No focal consolidation. Pleural spaces: Right costophrenic angle not completely visualized and a small pleural effusion cannot be excluded. Heart/Mediastinum: Cardiomegaly, similar to the prior study. There are calcified mediastinal and perihilar lymph nodes consistent with prior granulomatous exposure. Vasculature: There is calcified plaque in the aortic knob. Bones/joints: Unremarkable. XR/XR chest 1V portable [id number] IMPRESSION: Cardiomegaly, similar to the prior study. No evidence for acute cardiopulmonary disease.
--- NOTE | 2022-04-12 19:38 | ED_ITS ---
HPI - SOB/Dyspnea General: Chief Complaint: Shortness of Breath/Dyspnea Stated Complaint: SOB Time Seen by Provider: 04/12/22 19:38 History of Present Illness: HPI Narrative: Mr. Thomas is an 87-year-old gentleman with history of hypertension, hyperlipidemia, heart failure, atrial fibrillation on anticoagulation presenting to the emergency department due to respiratory symptoms. He reports onset of symptoms earlier today. He has had cough and now has difficulty getting anything up as cough is turned dry. He notes noisy breathing and a tickle in his throat. Denies choking episode. Denies history of underlying lung disease or associated signs systemic illness. Intensity symptoms moderate. Worse with exertion. No other specific changes in health, exacerbating, or alleviating factors identified. Onset (ago): hour(s) Timing: constant and progressively worsening Severity: moderate Exacerbating factors: exertion Relieving factors: nothing Known history of: congestive heart failure and other Associated symptoms: Reports chest congestion, cough and other Review of Systems General: Reports: 10 or more systems reviewed and unremarkable except in HPI and below Resp: Reports: chest congestion PFSH ED PFSH: Medical History Atrial fibrillation Basal cell carcinoma Borderline diabetes COVID-19 vaccine administered Moderna Diastolic CHF Dyslipidemia History of rhabdomyolysis HTN (hypertension) Hypothyroid Malignant melanoma in situ Postprocedural wound infection Prostatic hypertrophy Squamous cell carcinoma in situ Surgical History History of bilateral knee replacement History of cataract surgery History of inguinal hernia repair History of thyroidectomy For Hurthle cell carcinoma Family History Father , in his 70's Lung disease Mother Heart attack Social History Smoking and tobacco status: former smoker Alcohol intake: current Alcohol intake frequency: holidays/special occasions only Household members: none Marital status: / Current occupational status: retired History of recent travel: No Physical Exam Const: COMMON NORMALS: alert GENERAL APPEARANCE: cooperative and well deve rosanad HENMT: COMMON NORMALS: normocephalic and atraumatic HEAD & SCALP: normocephalic and atraumatic THROAT: posterior oropharynx normal Eye: COMMON NORMALS: conjunctivae normal CONJUNCTIVA: Yes conjunctivae nor mal SCLERA: sclerae normal Neck/C-Spine: COMMON NORMALS: supple GENERAL: Yes trachea midline Resp: COMMON NORMALS: normal respiratory effort EFFORT & INSPECTION: Yes able to speak in complete sentences OTHER: Upper airway noises, left upper lobe wheezing Cardio: COMMON NORMALS: regular rate and regular rhythm RATE: regular rate RHYTHM: regular rhythm GI: COMMON NORMALS: Soft to palpation PALPATION: Yes Soft to palpation and No Tenderness to palpation present (GI) Extremity: GENERAL: Yes normal exam except as noted and No edema Neuro: COMMON NORMALS: moves all extremities SENSORIUM/ORIENTATION: Yes alert and No Orientation impaired Psych: COMMON NORMALS: mental status grossly normal and Normal thought process present THOUGHT PROCESS: Normal thought process present Course Vital Signs: Vital signs: Vital Signs Temperature 98.8 F 04/12/22 18:16 Pulse Rate 88 04/12/22 23:09 Respiratory Rate 20 H 04/12/22 23:09 Blood Pressure 118/55 04/12/22 21:30 Pulse Oximetry 91 04/12/22 21:30 Oxygen Delivery Me thod 04/12/22 19:08 Fraction of Inspir ed Oxygen 21 04/12/22 23:09 MDM - SOB/Dyspnea Medical Decision Making 87-year-old gentleman presenting with respiratory symptoms. Exam as above. Patient is nontoxic. EKG notable for atrial fibrillation with left bundle branch block, occasional PVC, no STEMI & on repeat comparison to prior. Labs notable for no leukocytosis, mild macrocytic anemia. Metabolic panel with improvement in previously elevated creatinine without acute electrolyte regimen. Negative range 2-hour delta troponin and BNP is only mildly elevated. Rapid viral testing is negative. Chest x-ray with mild similar cardiomegaly, no lobar consolidation or pneumothorax. The patient has more upper airway sounds including mild stridulous sounding abnormality and therefore CT was ordered. CT demonstrates enlarging mass posterior to the hypopharynx as well as concern for recurrent thyroid cancer or residual tumor. Though not fully characterized on imaging read on my review of imaging the airway is widely patent without significant narrowing secondary to mass-effect. Patient feel significantly proved with steroids, RT treatment, and antibiotic. Most likely etiology of patient symptoms is multifactorial including bronchitis and neck mass. Case was discussed with ENT on-call and patient can appropriat francheska follow-up if desired. The results of ED evaluation were discussed with the patient including di sposition options. I did offer the patient transfer or admission for further observation treatment which he declined. I discussed prescriptions and/or symptomatic cares (if applicable) including appropriate and responsible use, followup plan, and return precautions. The patient verbalized understanding and felt safe for discharge. Medical Records I reviewed the patient's medical records. Lab Data I reviewed the patient's lab results. 04/12/22 19:40 04/12/22 19:40 Labs/Radiology: Radiology Impressions Chest X-Ray 04/12/22 18:40 IMPRESSION: Cardiomegaly, similar to the prior study. No evidence for acute cardiopulmonary disease. Neck CT 04/12/22 20:45 IMPRESSION: Enlarging masses posterior to the hypopharynx and in the left thyroid bed suspicious for recurrent tumor. Comparison to a prior exam including the superior mediastinum would be required to evaluate for change in the lower mass in the thyroid bed. COMMENTS: Consistent with the [employer]'s Incidental Findings Committee white paper (J Am Franklin Radiol 2015): In patients aged 35 years and older with an incidental thyroid nodule equal to or greater than 1.[address], MRI or extrathyroidal US, further evaluation with dedicated thyroid US is recommended for patients with normal life expectancy and without comorbidities. For smaller nodules without suspicious features, no further evaluation or follow up is recommended. Chest CT 04/12/22 20:46 IMPRESSION: 1. Status post partial thyroidectomy. Residual left thyroid lobe is inhomogeneous raising concern for recurrent or residual tumor. 2. Cardiomegaly. Laboratory Results WBC 8.7 10^3/uL (4.0-10.0) 04/12/22 19:40 RBC 3.66 10^6/uL (4.1-5.3) L 04/12/22 19:40 Hgb 11.5 g/dL (11.7-16.6) L 04/12/22 19:40 Hct 34.9 % (42.0-52.0) L 04/12/22 19:40 MCV 95.4 fl (80-94) H 04/12/22 19:40 MCH 31.4 pg (28.0-34.0) 04/12/22 19:40 MCHC 33.0 g/dL (30.0-36.0) 04/12/22 19:40 RDW 12.8 % (12.1-15.1) 04/12/22 19:40 Plt Count 307 10^3/cmm (130-400) 04/12/22 19:40 MPV 9.3 fL (7.4-10.4) 04/12/22 19:40 Neut % (Auto) 75.8 % 04/12/22 19:40 Lymph % (Auto) 13.0 % 04/12/22 19:40 [place] % (Auto) 7.7 % 04/12/22 19:40 Eos % (Auto) 2.4 % 04/12/22 19:40 Baso % (Auto) 0.6 % 04/12/22 19:40 Neut # (Auto) 6.59 10^3/uL (1.8-7.7) 04/12/22 19:40 Lymph # (Auto) 1.1 10^3/uL (0.8-4.8) 04/12/22 19:40 [place] # (Auto) 0.7 10^3/uL (0.2-0.9) 04/12/22 19:40 Eos # (Auto) 0.2 10^3/uL (0.0-0.8) 04/12/22 19:40 Baso # (Auto) 0.1 10^3/uL (0.0-0.1) 04/12/22 19:40 Nucleated RBC % (auto) 0 % 04/12/22 19:40 Nucleated RBCs # 0.0 /100WBC 04/12/22 19:40 Sodium 136 mmol/L (136-145) 04/12/22 19:40 Potassium 4.2 mmol/L (3.5-5.1) 04/12/22 19:40 Chloride 95 mmol/L (98-107) L 04/12/22 19:40 Carbon Dioxide 27 mmol/L (22-29) 04/12/22 19:40 Anion Gap 18.2 (5-19) 04/12/22 19:40 BUN 29 mg/dL (8-23) H 04/12/22 19:40 Creatinine 1.5 mg/dL (0.7-1.2) H 04/12/22 19:40 GFR Calculation Not Reportable 04/12/22 19:40 Glucose 126 mg/dL (65-115) H 04/12/22 19:40 Calculated Osmolality 289 mOsm/kg (285-295) 04/12/22 19:40 Calcium 9.8 mg/dL (8.5-10.5) 04/12/22 19:40 Total Bilirubin 0.4 mg/dL (0.15-1.2) 04/12/22 19:40 AST 12 U/L (0-40) 04/12/22 19:40 ALT 10 U/L (0-41) 04/12/22 19:40 Alkaline Phosphatase 82 U/L (40-130) 04/12/22 19:40 Troponin T Baseline 59 ng/L (0-15) H 04/12/22 19:40 Troponin T 120 Minute 58.89 ng/L (0-15) H 04/12/22 21:12 Delta Troponin T -0.11 ABS# (0-10) L 04/12/22 21:12 NT-Pro-B Natriuret Pep 1411 pg/mL (0-450) H 04/12/22 19:40 Total Protein 7.6 g/dL (6.6-8.7) 04/12/22 19:40 Albumin 3.8 g/dL (3.5-5.2) 04/12/22 19:40 Globulin 3.8 g/dL (1.3-4.6) 04/12/22 19:40 Procalcitonin 0.07 ng/mL (0-0.5) 04/12/22 19:40 Influenza Type A Ag negative (Negative) 04/12/22 20:03 Influenza Type B Ag negative (Negative) 04/12/22 20:03 SARS-CoV-2 Ag (Rapid) negative (Negative) 04/12/22 20:03 Discharge Plan Discharge Patient Disposition: Home Clinical Impression: Breath shortness, Mass in neck Condition: Stable Prescriptions: New albuterol sulfate 90 mcg/actuation HFA aerosol inhaler 2 inh inhalation Q4H PRN (Reason: shortness of breath or wheezing) Qty: 8.5 0RF No Action prazosin 5 mg capsule 5 mg PO DAILY amlodipine 10 mg tablet 10 mg PO DAILY tamsulosin 0.4 mg capsule 0.4 mg PO BID Qty: 180 3RF finasteride 5 mg tablet 5 mg PO QDAY Qty: 90 3RF famotidine 40 mg tablet 40 mg PO BID aspirin 81 mg Tablet,Delayed Release (Dr/Ec) 81 mg PO DAILY triamcinolone acetonide 0.1 % cream See Rx Instructions .ROUTE .COMPLEX Rx Instructions: applic topically as directed metformin 500 mg tablet extended release 24 hr 500 mg PO DAILY spironolactone 50 mg tablet 50 mg PO DAILY Rx Instructions: SEE PHARMACY COMMET Eliquis 2.5 mg Tablet 2.5 mg PO BID levothyroxine See Rx Instructions .ROUTE .COMPLEX Rx Instructions: TAKE DIRECTED furosemide 40 mg tablet 80 mg PO DAILY dexamethasone 4 mg tablet 4 mg PO QID Qty: 60 0RF Discharge Orders: Discharge ED (Routine); Ordered 04/12/22 Ordered By: Bruce Raphael Referrals: Noel You MD [Primary Care Provider] - Discharge Diet: Usual diet Discharge Activity: Increase activity as tolerated Patient Instructions: Shortness of Breath (ED) Activity Restrictions/Additional Instructions: Thank you for visiting the emergency department. You were seen and evaluated for shortness of breath. The exact cause of your symptoms is unclear. It may be related to bronchitis which will be treated. As discussed, you do have new soft tissue neck masses which require further evaluation. Please call Dr Collins's office thursday morning for followup [address] [place] [address] Return to the emergency department immediately for worsening symptoms or anything else that you are concerned about and feel needs emergency department evaluation. Coding Level of Care Code ED Photography Instructor for Katt Napier
--- NOTE | 2022-04-12 19:45 | ECG_ITS ---
[facility] Test Date: 2022-04-12 Pat Name: Earle De La Roas Department: Room: Gender: Male Senior Category Manager: : [id number] Requested By: Bruce Raphael Order Number: [id number] Merlin MD: Sherly Brown M.D. Measurements Intervals [place] Rate: 82 P: 0 [place]: 0 QRS: -63 QRSD: 152 T: 86 QT: 401 QTc: 470 Interpretive Statements ATRIAL FIBRILLATION WITH ABERRANT CONDUCTION OR VENTRICULAR PREMATURE COMPLEXES LEFT AXIS DEVIATION [QRS AXIS < -30] LEFT BUNDLE BRANCH BLOCK [120+ ms QRS DURATION, 80+ ms Q/S IN V1/V2, 85+ ms R IN I/aVL/V5/V6] Compared to ECG 11/07/2020 08:49:44 No significant changes Electronically Signed On 04-13-2022 8:46:49 FEED GRINDER by Sherly Brown M.D. [email or web address]
[2022-04-12 19:58] LABS: Basophils # 0.1 10^3/uL (0.0-0.1); Basophils % 0.6 %; Eosinophils # 0.2 10^3/uL (0.0-0.8); Eosinophils % 2.4 %; Hematocrit 34.9 % (42.0-52.0); Hemoglobin 11.5 g/dL (11.7-16.6); Lymphocytes # 1.1 10^3/uL (0.8-4.8); Mean Corpuscular Hemoglobin 31.4 pg (28.0-34.0); Mean Corpuscular Volume 95.4 fl (80-94); Mean Platelet Volume 9.3 fL (7.4-10.4); Monocytes # 0.7 10^3/uL (0.2-0.9); Monocytes % 7.7 %; Neutrophils # 6.59 10^3/uL (1.8-7.7); Neutrophils % 75.8 %; Nucleated Red Blood Cells % 0 %; Platelet Count 307 10^3/cmm (130-400); Red Blood Count 3.66 10^6/uL (4.1-5.3); Red Cell Distribution Width 12.8 % (12.1-15.1); White Blood Count 8.7 10^3/uL (4.0-10.0)
[2022-04-12] MEDS: ipratropium-albuterol 3 mL Neb INHALATION (20:08)
[2022-04-12 20:22] LABS: Troponin(5th) Baseline 59 ng/L (0-15)
[2022-04-12 20:28] LABS: Influenza A by IFA negative (Negative); Influenza B by IFA negative (Negative); SARS Covid-2 Antigen negative (Negative)
[2022-04-12 20:30] LABS: NT Pro B Type Natriuretic Pept 1411 pg/mL (0-450); Procalcitonin 0.07 ng/mL (0-0.5)
[2022-04-12 20:41] LABS: Alanine Aminotransferase 10 U/L (0-41); Albumin Level 3.8 g/dL (3.5-5.2); Alkaline Phosphatase 82 U/L (40-130); Anion Gap 18.2 (5-19); Aspartate Amino Transferase 12 U/L (0-40); Blood Urea Nitrogen 29 mg/dL (8-23); Calcium 9.8 mg/dL (8.5-10.5); Carbon Dioxide 27 mmol/L (22-29); Chloride 95 mmol/L (98-107); Globulin 3.8 g/dL (1.3-4.6); Glucose 126 mg/dL (65-115); Osmolality Calculated 289 mOsm/kg (285-295); Potassium 4.2 mmol/L (3.5-5.1); Sodium 136 mmol/L (136-145); Total Bilirubin 0.4 mg/dL (0.15-1.2); Total Protein 7.6 g/dL (6.6-8.7)
--- NOTE | 2022-04-12 20:45 | CTR_ITS ---
PROCEDURE INFORMATION: Exam: CT Neck Without Contrast Exam date and time: 04/12/2022 9:16 PM Age: 87 years old Clinical indication: Other: R/O upper airway obstructive lesion; Prior surgery; Surgery date: 6+ months; Surgery type: Thyroidectomy for thyroid CA; Additional info: SOB, ? upper airway obstructing lesion TECHNIQUE: Imaging protocol: Computed tomography of the neck without contrast. Radiation optimization: All CT scans at this facility use at least one of these dose optimization techniques: automated exposure control; mA and/or kV adjustment per patient size (includes targeted exams where dose is matched to clinical indication); or iterative reconstruction. COMPARISON: CT neck w con* [id number] 11/20/2016 2:45 PM RADIATION DOSE METRICS: Total DLP (mGy-cm): 612 FINDINGS: Orbital cavities: The patient has had bilateral lens replacement surgery. Pharynx: There is asymmetric soft tissue thickening posterior to the hypopharynx which causes asymmetric effacement of the left piriformis sinus and was not present on the previous exam. This measures approximately 4.7 x 2.4 x 4.5 cm. Larynx: Unremarkable. Epiglottis is normal. Prevertebral and retropharyngeal spaces: Unremarkable. Salivary glands: Normal. Glands are normal in size. Thyroid: There is a 2.5 x 5.2 cm soft tissue mass with surgical clips along the left side of the trachea which may be residual thyroid tissue versus recurrent tumor. Lymph nodes: Calcified lymph nodes in the mediastinum may be due to prior granulomatous disease or treated lymphoma. Trachea: Visualized trachea is unremarkable. Lungs: Unremarkable as visualized. Bones/joints: There are severe degenerative changes throughout the cervical spine and both sternoclavicular joints. Vasculature: Carotid and vertebral artery atherosclerotic calcification. Incidentally noted is a bovine aortic arch. No aneurysm or dissection. Soft tissues: Unremarkable. No significant soft tissue swelling. CT/CT neck wo con [id number] IMPRESSION: Enlarging masses posterior to the hypopharynx and in the left thyroid bed suspicious for recurrent tumor. Comparison to a prior exam including the superior mediastinum would be required to evaluate for change in the lower mass in the thyroid bed. COMMENTS: Consistent with the [employer]'s Incidental Findings Committee white paper (J Am Franklin Radiol 2015): In patients aged 35 years and older with an incidental thyroid nodule equal to or greater than 1.[address], MRI or extrathyroidal US, further evaluation with dedicated thyroid US is recommended for patients with normal life expectancy and without comorbidities. For smaller nodules without suspicious features, no further evaluation or follow up is recommended.
--- NOTE | 2022-04-12 20:46 | CTR_ITS ---
PROCEDURE INFORMATION: Exam: CT Chest Without Contrast; Diagnostic Exam date and time: 04/12/2022 9:20 PM Age: 87 years old Clinical indication: Shortness of breath and other: R/O upper airway obstructing lesion; Prior surgery; Surgery date: 6+ months; Surgery type: Thyroidectomy for thyroid CA; Additional info: SOB TECHNIQUE: Imaging protocol: Diagnostic computed tomography of the chest without contrast. Radiation optimization: All CT scans at this facility use at least one of these dose optimization techniques: automated exposure control; mA and/or kV adjustment per patient size (includes targeted exams where dose is matched to clinical indication); or iterative reconstruction. COMPARISON: CR (CHEST, ) 04/12/2022 7:35 PM RADIATION DOSE METRICS: Total DLP (mGy-cm): 717.99 FINDINGS: Thyroid: Partial thyroidectomy changes are present. There are multiple metallic densities in the residual left thyroid lobe which is inhomogeneous and measures 4.9 x 4.1 x 2.6 cm in the craniocaudad/AP/transverse dimensions. Lungs: There are pulmonary parenchymal calcifications consistent with remote granulomatous organism exposure. Pleural spaces: Unremarkable. No pneumothorax. No pleural effusion. Heart: Cardiomegaly. Coronary arteries: Multivessel atherosclerotic disease which involves the coronary arteries. Lymph nodes: There are calcified mediastinal and perihilar lymph nodes consistent with prior granulomatous exposure. Vasculature: Unremarkable. No aortic aneurysm. Diaphragm: Small hiatal hernia. Bones/joints: Unremarkable. No acute fracture. Soft tissues: Unremarkable. CT/CT chest wo con [id number] IMPRESSION: 1. Status post partial thyroidectomy. Residual left thyroid lobe is inhomogeneous raising concern for recurrent or residual tumor. 2. Cardiomegaly.
[2022-04-12 21:35] LABS: Troponin 5 2HR 58.89 ng/L (0-15)
[2022-04-12 21:36] LABS: Troponin 5 2HR Delta -0.11 ABS# (0-10)
--- NOTE | 2022-04-12 21:49 | ECG_ITS ---
[facility] Test Date: 2022-04-12 Pat Name: Erale De La Rosa Department: Room: Gender: Male Heel Edge Inker Machine: : 1935 Requested By: Bruce Raphael Order Number: [id number] Merlin MD: Sherly Brown M.D. Measurements Intervals [place] Rate: 89 P: 0 MO: 0 QRS: -71 QRSD: 150 T: 89 QT: 390 QTc: 476 Interpretive Statements ATRIAL FIBRILLATION LEFT AXIS DEVIATION [QRS AXIS < -30] LEFT BUNDLE BRANCH BLOCK [120+ ms QRS DURATION, 80+ ms Q/S IN V1/V2, 85+ ms R IN I/aVL/V5/V6] Compared to ECG 04/12/2022 19:59:42 Ventricular premature complex(es) no longer present Aberrant conduction of supraventricular beat(s) no longer present Electronically Signed On 04-13-2022 9:10:47 BOOKKEEPING MANAGER by Sherly Brown M.D. [id number]
[2022-04-12] MEDS: predniSONE 20 mg Tablet 40 MG PO (23:03)
[2022-04-12] MEDS: doxycycline 100 mg Tablet PO (23:03)
[2022-04-12] MEDS: albuterol 8 gm MDI 2 PUFF INHALATION (23:08)
--- NOTE | 2022-04-14 14:44 | DCPLANNER ---
Addendum entered by Lilliam Valencia 04/15/22 13:21: carbon capture power plant manager called to confirm that Dr. Marinelli office received patients information. carbon capture power plant manager was told that clinic did receive patients information. Original Note: carbon capture power plant manager had message to refer patient to ENT, Dr. Collins for follow up appointment. carbon capture power plant manager sent patients information to the front office staff at Dr. Collins. Patients information will be reviewed. Clinic will call patient with appointment information.
== END 2022-04-12 23:05 | disposition home or self-care (01) ==
PROVIDERS: Physician Assistant; Emergency Provider Emergency Medicine; PCP Family Medicine
DX: R06.02 Shortness of breath (principal); R22.1 Localized swelling, mass and lump, neck; Z79.82 Long term (current) use of aspirin; Z79.84 Long term (current) use of oral hypoglycemic drugs; Z79.01 Long term (current) use of anticoagulants; Z20.822 Contact with and (suspected) exposure to COVID-19; I11.0 Hypertensive heart disease with heart failure; I50.30 Unspecified diastolic (congestive) heart failure; E78.5 Hyperlipidemia, unspecified; Z87.891 Personal history of nicotine dependence
CPT/HCPCS: 36415; 70490; 71045; 71250; 80053; 83880; 84145; 84484; 85025; 87426; 87804; 93005; 94640; 96374; 99285; J2930; J3535; J7512

== ENCOUNTER 2022-04-16 09:55 | Emergency (ER) | payer MEDICARE, BC, SELFPAY ==
[2022-04-16] VITALS (7 sets, daily range): BP systolic 108–157; BP diastolic 56–81; PULSE 73–104; RESP 16–20; TEMP 36.7; O2SAT 92–97
--- NOTE | 2022-04-16 10:07 | XR_ITS ---
WS: [id number] Exam: XR chest 1V portable [id number] Date/Time of Exam: 04/16/2022 10:07 AM Reason For Exam: dyspnea/cough Comparison 04/12/2022. The lungs are clear and fully inflated. Mild cardiac enlargement. No pleural effusions. There is wide peri of the superior mediastinum with rightward tracheal deviation. Bony structures are intact. EKG l ken superimpose the chest. Degenerative change of the right shoulder with high riding humeral head. XR/XR chest 1V portable [id number] IMPRESSION: 1. No acute cardiopulmonary finding. 2. Mild cardiac enlargement unchanged. 3. Widening of the superior mediastinum with rightward deviation of the trachea . This is apparently secondary to enlarged left thyroid lobe as discussed in lopes on recent CT scan of the chest 04/12/2022.
--- NOTE | 2022-04-16 10:22 | ED_ITS ---
HPI - SOB/Dyspnea General: Chief Complaint: Shortness of Breath/Dyspnea Stated Complaint: difficulty breathing, Weezing Time Seen by Provider: 04/16/22 10:05 Source: patient Mode of arrival: ambulatory History of Present Illness: HPI Narrative: 87-year-old male presents to the emergency room with significant stridor. Patient was seen 4 days ago and found to have a hypopharyngeal mass he previously had a thyroid tumor resected was a concern for recurrence he set up to see Dr. Haddad. Previous CT of the neck was reviewed. On arrival here patient has significant stridor but his oxygen sats are good he denies fever he says he has been coughing things up the last few days. Denies chest pain no hemoptysis. MD elicited complaint: shortness of breath and cough Pertinent past history: COPD Onset (ago): day(s) Timing: constant Severity: mild Exacerbating factors: nothing Relieving factors: nothing Known history of: COPD Associated symptoms: Deny abdominal pain, chest congestion, chest pain, cough, diaphoresis, dizziness, extremity pain, fever(s), hemoptysis, lightheadedness, myalgias, nausea, orthopnea, palpitations, paresthesias, polydipsia, polyuria, rash, sense of impending doom, syncope or vomiting Review of Systems Const: Denies: fever(s), chills, fatigue, malaise or diaphoresis ENMT: Denies: throat pain, ear or mastoid pain, nasal discharge or nasal congestion Card: Denies: chest pain, palpitations, lightheadedness, syncope or orthopnea Resp: Reports: dyspnea and wheezing; Denies: productive cough, non-productive cough, hemoptysis or chest congestion GI: Denies: abdominal pain, nausea or vomiting : Denies: flank pain, dysuria, urinary frequency or urinary urgency Musc: Denies: extremity pain Skin/Breast: Denies: rash or pruritus Neuro: Denies: dizziness Endo: Denies: polyuria or polydipsia PFS ED PFSH: Medical History Atrial fibrillation Basal cell carcinoma Borderline diabetes COVID-19 vaccine administered Moderna Diastolic CHF Dyslipidemia History of rhabdomyolysis HTN (hypertension) Hypothyroid Malignant melanoma in situ Postprocedural wound infection Prostatic hypertrophy Squamous cell carcinoma in situ Surgical History History of bilateral knee replacement History of cataract surgery History of inguinal hernia repair History of thyroidectomy For Hurthle cell carcinoma Family History Father , in his 70's Lung disease Mother Heart attack Social History Smoking and tobacco status: former smoker Alcohol intake: current Alcohol intake frequency: holidays/special occasions only Household members: none Marital status: / Current occupational status: retired History of recent travel: No Physical Exam Const: GENERAL APPEARANCE: cooperative and comfortable ORIENTATION/CONSCIOUSNESS: Yes awake, Yes oriented to person, Yes oriented to place and Yes oriented to time HENMT: COMMON NORMALS: normocephalic, atraumatic, hearing grossly normal bilaterally, external ears normal, EAC's normal, TM's normal bilaterally, Normal nasal mucous membranes and turbinates present, moist oral mucous membranes and oropharynx normal HEAD & SCALP: normocephalic and atraumatic NOSE: Normal nasal mucous membranes and turbinates present EXTERNAL EAR: Yes external ears normal EXTERNAL AUDITORY CANAL: EAC's normal TYMPANIC MEMBRANE: TM's normal bilaterally Eye: OTHER: Stridor noted on exam Patient has abnormal phonation. Neck/C-Spine: COMMON NORMALS: full ROM, no lymphadenopathy, supple and no JVD Resp: COMMON NORMALS: normal respiratory effort, No retractions and No use of accessory muscles AUSCULTATION: wheezes Cardio: COMMON NORMALS: no JVD, regular rate, regular rhythm and No murmurs present (Cardio) RATE: regular rate RHYTHM: regular rhythm GI: COMMON NORMALS: Soft to palpation and No hepatosplenomegaly present AUSCULTATION: Yes normoactive bowel sounds PALPATION: Yes Soft to palpation, No Tenderness to palpation present (GI), No Guarding due to palpation present (GI) and Yes No hepatosplenomegaly present Extremity: COMMON NORMALS: normal to inspection, capillary refill normal, no clubbing, cyanosis or edema, no calf tenderness and no pedal edema Neuro: SENSORIUM/ORIENTATION: Yes oriented to person, Yes oriented to place and Yes oriented to time Skin: COMMON NORMALS: no rashes or lesions noted GENERAL SKIN EXAM: no rashes or lesions noted Course Vital Signs: Vital signs: Vital Signs Temperature 98.1 F 04/16/22 09:57 Pulse Rate 73 04/16/22 14:41 Respiratory Rate 16 04/16/22 14:41 Blood Pressure 120/68 04/16/22 14:41 Pulse Oximetry 92 04/16/22 13:24 Oxygen Delivery Me thod 04/16/22 13:24 MDM - SOB/Dyspnea Medical Decision Making Patient has obvious stridor on presentation CT consistent with what was seen previously in addition his 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 I think that is probably what is causing most angst at this point there is not significant compromise of his airway and discussed Dr. Perez who is on-call for ENT he recommended considering referring patient to [place] for tertiary care evaluation since this would likely be more complicated than what could be managed here. Patient is refusing he states he has a follow-up appoint with Dr. Haddad in a couple of days. Contact Dr. Haddad he is fine with the have the patient be discharged home and he agreed with increasing his steroid Decadron 4 mg 4 times daily. Patient advised he can return at any point or reevaluate otherwise he should follow-up with Dr. Haddad as scheduled return if is further problems. Medical Records I reviewed the patient's medical records. Lab Data I reviewed the patient's lab results. 04/16/22 10:24 04/16/22 10:24 Labs/Radiology: Radiology Impressions Chest X-Ray 04/16/22 10:07 IMPRESSION: 1. No acute cardiopulmonary finding. 2. Mild cardiac enlargement unchanged. 3. Widening of the superior mediastinum with rightward deviation of the trachea. This is apparently secondary to enlarged left thyroid lobe as discussed in detail on recent CT scan of the chest 04/12/2022. Neck CT 04/16/22 10:23 IMPRESSION: 1. Recurrent mass in the LEFT thyroid bed was not present in 2017. This extends into the LEFT superior mediastinum with LEFT to RIGHT mass effect on the trachea described above. This measures approximately 4.1 x 2.6 x 3.8 cm AP by transverse by craniocaudal. 2. Diffuse masslike soft tissue thickening with heterogeneous enhancement involving the posterior hypopharynx at the level of the piriform sinuses unchanged in appearance since the recent neck CT. Findings suspicious for neopla sm in a patient this age. Associated diffuse thickening of the posterior hypopharynx involving the vocal folds. Infection should also be excluded. 3. Mild narrowing of the supraglottic larynx. 4. Suggestion of RIGHT vocal cord paralysis with ballooning of the RIGHT true vocal cord. 5. RIGHT upper dorsal neck cervical lymph nodes largest with enhancement nonsp ecific but suspicious for metastatic disease measuring 13 mm. Additional adjacent subcutaneous nodule. 6. Advanced spondylitic changes cervical spine. Laboratory Results WBC 8.9 10^3/uL (4.0-10.0) 04/16/22 10:24 RBC 3.84 10^6/uL (4.1-5.3) L 04/16/22 10:24 Hgb 11.9 g/dL (11.7-16.6) 04/16/22 10:24 Hct 36.9 % (42.0-52.0) L 04/16/22 10:24 MCV 96.1 fl (80-94) H 04/16/22 10:24 MCH 31.0 pg (28.0-34.0) 04/16/22 10:24 MCHC 32.2 g/dL (30.0-36.0) 04/16/22 10:24 RDW 13.0 % (12.1-15.1) 04/16/22 10:24 Plt Count 308 10^3/cmm (130-400) 04/16/22 10:24 MPV 9.1 fL (7.4-10.4) 04/16/22 10:24 Neut % (Auto) 77.8 % 04/16/22 10:24 Lymph % (Auto) 11.9 % 04/16/22 10:24 [place] % (Auto) 7.4 % 04/16/22 10:24 Eos % (Auto) 1.7 % 04/16/22 10:24 Baso % (Auto) 0.6 % 04/16/22 10:24 Neut # (Auto) 6.90 10^3/uL (1.8-7.7) 04/16/22 10:24 Lymph # (Auto) 1.1 10^3/uL (0.8-4.8) 04/16/22 10:24 [place] # (Auto) 0.7 10^3/uL (0.2-0.9) 04/16/22 10:24 Eos # (Auto) 0.2 10^3/uL (0.0-0.8) 04/16/22 10:24 Baso # (Auto) 0.1 10^3/uL (0.0-0.1) 04/16/22 10:24 Nucleated RBC % (auto) 0 % 04/16/22 10:24 Nucleated RBCs # 0.0 /100WBC 04/16/22 10:24 Specimen Type Arterial 04/16/22 11:10 Sample Site Radial, left 04/16/22 11:10 ABG pH 7.46 (7.35-7.45) H 04/16/22 11:10 ABG pCO2 41.3 mmHg (35-45) 04/16/22 11:10 ABG pO2 74.1 mmHg (80.0-100.0) L 04/16/22 11:10 ABG HCO3 29.0 mmol/L (22-26) H 04/16/22 11:10 ABG O2 Saturation 95.9 04/16/22 11:10 ABG Base Excess 4.6 mmol/L (-2.0-2.0) H 04/16/22 11:10 Ramon Test Pos 04/16/22 11:10 A-a O2 Gradient 3.0 mmHg (5-10) L 04/16/22 11:10 Hematocrit 51.5 % (42-52) 04/16/22 11:10 Hgb O2 Saturation 94.9 % (95-100) L 04/16/22 11:10 Carboxyhemoglobin 1.0 %THgb (0.4-20.1) 04/16/22 11:10 Methemoglobin 0.1 % (0.4-1.5) L 04/16/22 11:10 Total Hemoglobin 16.8 g/dL (14-18) 04/16/22 11:10 Sodium 138.0 mmol/L (131-143) 04/16/22 11:10 Potassium 3.9 mmol/L (3.5-5.0) 04/16/22 11:10 Glucose 122.0 mg/dL (70-115) H 04/16/22 11:10 Ionized Calcium 1.2 mmol/L (1.1-1.4) 04/16/22 11:10 O2 Delivery Device Room air 04/16/22 11:10 FiO2 21.0 % 04/16/22 11:10 Straightening Machine Feeder ID Cak 04/16/22 11:10 Sodium 136 mmol/L (136-145) 04/16/22 10:24 Potassium 4.4 mmol/L (3.5-5.1) 04/16/22 10:24 Chloride 95 mmol/L (98-107) L 04/16/22 10:24 Carbon Dioxide 28 mmol/L (22-29) 04/16/22 10:24 Anion Gap 17.4 (5-19) 04/16/22 10:24 BUN 25 mg/dL (8-23) H 04/16/22 10:24 Creatinine 1.4 mg/dL (0.7-1.2) H 04/16/22 10:24 GFR Calculation Not Reportable 04/16/22 10:24 Glucose 130 mg/dL (65-115) H 04/16/22 10:24 Calculated Osmolality 288 mOsm/kg (285-295) 04/16/22 10:24 Calcium 9.7 mg/dL (8.5-10.5) 04/16/22 10:24 Total Bilirubin 0.5 mg/dL (0.15-1.2) 04/16/22 10:24 AST 15 U/L (0-40) 04/16/22 10:24 ALT 14 U/L (0-41) 04/16/22 10:24 Alkaline Phosphatase 81 U/L (40-130) 04/16/22 10:24 Total Protein 7.5 g/dL (6.6-8.7) 04/16/22 10:24 Albumin 3.9 g/dL (3.5-5.2) 04/16/22 10:24 Globulin 3.6 g/dL (1.3-4.6) 04/16/22 10:24 Discharge Plan Discharge Patient Disposition: Home Clinical Impression: Mass of pharynx, Thyroid mass Condition: Stable Prescriptions: New dexamethasone 4 mg tablet 4 mg PO QID Qty: 60 0RF Discontinued prednisone 50 mg tablet 50 mg PO DAILY 5 Days Qty: 5 0RF No Action prazosin 5 mg capsule 5 mg PO DAILY amlodipine 10 mg tablet 10 mg PO DAILY tamsulosin 0.4 mg capsule 0.4 mg PO BID Qty: 180 3RF famotidine 40 mg tablet 40 mg PO BID aspirin 81 mg Tablet,Delayed Release (Dr/Ec) 81 mg PO DAILY triamcinolone acetonide 0.1 % cream See Rx Instructions .ROUTE .COMPLEX Rx Instructions: applic topically as directed metformin 500 mg tablet extended release 24 hr 500 mg PO DAILY spironolactone 50 mg tablet 50 mg PO DAILY Rx Instructions: SEE PHARMACY COMMET Eliquis 2.5 mg Tablet 2.5 mg PO BID levothyroxine See Rx Instructions .ROUTE .COMPLEX Rx Instructions: TAKE DIRECTED furosemide 40 mg tablet 80 mg PO DAILY doxycycline hyclate 100 mg capsule 100 mg PO BID 10 Days Qty: 20 0RF albuterol sulfate 90 mcg/actuation HFA aerosol inhaler 2 inh inhalation Q4H PRN (Reason: shortness of breath or wheezing) Qty: 8.5 0RF Discharge Orders: Discharge ED (Routine); Ordered 04/16/22 Ordered By: Braydon Guallpa Referrals: Noel You MD [Primary Care Provider] - Discharge Diet: Soft Mechanical Discharge Activity: Limit activity as instructed Patient Instructions: Opioid Safety, Pain Management Activity Restrictions/Additional Instructions: You were seen today with complaint of difficulty breathing. The mass seen earlier this week and your neck is still present. It is causing paralysis of the right like vocal cord. This is likely what is causing sensation of difficulty breathing. You had indicated you wish to wait and be seen by Dr. Haddad in 2 days at his office rather than being transferred. We did contact Dr. Haddad he recommends that you start on the steroids that were prescribed today and see him in his office severe worsening problems return to the emergency room Coding Level of Care Code ED Occupational Therapy Co Director for Katt Napier Exam Comprehensive
--- NOTE | 2022-04-16 10:23 | CT_ITS ---
WS: [id number] CT NECK TECHNIQUE: Contrast-enhanced CT of the neck with coronal and sagittal reformatted images. CLINICAL INFORMATION: stridor, hypopharynx mass COMPARISON: CT April 12, 2022 DLP: 503.[address] scans at [facility] use at least one of these dose optimization techniques: automated e xposure control; mA and/or kV adjustment per patient size (includes targeted exams where dose is matc hed to clinical indication); or iterative reconstruction. FINDINGS: History of prior thyroidectomy. No residual thyroid gland present on the 2017 CT neck and 2019 ultras ound thyroid. Since 2017, interval development of recurrent mass in the LEFT thyroid bed with LEFT to RIGHT mass e ffect on the trachea. Recurrent mass measures 4.1 x 2.6 x 3.8 cm AP by transverse by craniocaudal. Th is extends into the LEFT superior mediastinum with associated calcifications. Additional slight ballooning of the RIGHT piriform sinus suspicious for focal cord paralysis. Mass[place] e soft tissue thickening with enhancement involving the posterior hypopharynx at the level of the pir iform sinuses involving the posterior pharyngeal wall. This is suspicious for neoplasm in patient thi s age. Associated secretions in the posterior hypopharynx. Infection should also be excluded. Normal posterior nasopharynx. Normal parapharyngeal fat. Normal vallecula and epiglottis. Subglottic airway is patent. Parotid glands are normal. Submandibular glands are normal. Lung apices are well aerated. Carotid bul b calcification. A few prominent dorsal RIGHT subcutaneous upper neck lymph nodes the largest measuri ng 13 mm with enhancement. These are nonspecific but metastatic disease not excluded. Advanced spondy litic changes cervical spine. Paranasal sinuses are well aerated. Mastoid air cells are well aerated. Cavernous carotid calcificati on. CT/CT neck w con* [id number] IMPRESSION: 1. Recurrent mass in the LEFT thyroid bed was not present in 2017. This extend s into the LEFT superior mediastinum with LEFT to RIGHT mass effect on the trac hea described above. This measures approximately 4.1 x 2.6 x 3.8 cm AP by trans verse by craniocaudal. 2. Diffuse masslike soft tissue thickening with heterogeneous enhancement invo lving the posterior hypopharynx at the level of the piriform sinuses unchanged in appearance since the recent neck CT. Findings suspicious for neoplasm in a p atient this age. Associated diffuse thickening of the posterior hypopharynx inv olving the vocal folds. Infection should also be excluded. 3. Mild narrowing of the supraglottic larynx. 4. Suggestion of RIGHT vocal cord paralysis with ballooning of the RIGHT true vocal cord. 5. RIGHT upper dorsal neck cervical lymph nodes largest with enhancement nonsp ecific but suspicious for metastatic disease measuring 13 mm. Additional adjace nt subcutaneous nodule. 6. Advanced spondylitic changes cervical spine.
[2022-04-16] MEDS: albuterol 2.5 mg/3 mL Neb INHALATION (10:27)
[2022-04-16] MEDS: ipratropium 0.5 mg/2.5 mL Neb INHALATION (10:27)
--- NOTE | 2022-04-16 10:32 | ECG_ITS ---
[facility] Test Date: 2022-04-16 Pat Name: Earle De La Rosa Department: Room: Gender: Male Paint Line Supervisor: : [id number] Requested By: Braydon Romero Order Number: [id number] Merlin MD: Mateo Awad M.D. Measurements Intervals [place] Rate: 85 P: 0 [place]: 0 QRS: 198 QRSD: 143 T: 13 QT: 373 QTc: 444 Interpretive Statements ATRIAL FIBRILLATION RIGHT AXIS DEVIATION [QRS AXIS > 100] INTRAVENTRICULAR CONDUCTION DELAY [130+ ms QRS DURATION] Compared to ECG 04/12/2022 21:49:40 Right-axis deviation now present Intraventricular conduction delay now present Left-axis deviation no longer present Left bundle-branch block no longer present Electronically Signed On 04-16-2022 21:45:35 CHORAL DIRECTOR by Mateo Awad M.D. [id number]
[2022-04-16 10:34] LABS: Basophils # 0.1 10^3/uL (0.0-0.1); Basophils % 0.6 %; Eosinophils # 0.2 10^3/uL (0.0-0.8); Eosinophils % 1.7 %; Hematocrit 36.9 % (42.0-52.0); Hemoglobin 11.9 g/dL (11.7-16.6); Lymphocytes # 1.1 10^3/uL (0.8-4.8); Lymphocytes % 11.9 %; Mean Corpuscular HGB Conc 32.2 g/dL (30.0-36.0); Mean Corpuscular Volume 96.1 fl (80-94); Mean Platelet Volume 9.1 fL (7.4-10.4); Monocytes # 0.7 10^3/uL (0.2-0.9); Monocytes % 7.4 %; Neutrophils % 77.8 %; Nucleated Red Blood Cells % 0 %; Platelet Count 308 10^3/cmm (130-400); Red Blood Count 3.84 10^6/uL (4.1-5.3); White Blood Count 8.9 10^3/uL (4.0-10.0)
[2022-04-16 10:56] LABS: Alanine Aminotransferase 14 U/L (0-41); Albumin Level 3.9 g/dL (3.5-5.2); Alkaline Phosphatase 81 U/L (40-130); Anion Gap 17.4 (5-19); Aspartate Amino Transferase 15 U/L (0-40); Blood Urea Nitrogen 25 mg/dL (8-23); Calcium 9.7 mg/dL (8.5-10.5); Carbon Dioxide 28 mmol/L (22-29); Chloride 95 mmol/L (98-107); Globulin 3.6 g/dL (1.3-4.6); Glucose 130 mg/dL (65-115); Osmolality Calculated 288 mOsm/kg (285-295); Potassium 4.4 mmol/L (3.5-5.1); Sodium 136 mmol/L (136-145); Total Bilirubin 0.5 mg/dL (0.15-1.2); Total Protein 7.5 g/dL (6.6-8.7)
[2022-04-16 11:23] LABS: ABG PCO2 41.3 mmHg (35-45); ABG PH Result 7.46 (7.35-7.45); Arterial Blood Gas Hematocrit 51.5 % (42-52); Base Excess ABG 4.6 mmol/L (-2.0-2.0); Blood Gas Allen Test Pos; Blood Gas Operator Identificat CAK; Blood Gas Sample Site Radial, left; Blood Gas Sample Type Arterial; HGB O2 Sat 94.9 % (95-100); Ionized Calcium Level - ABG 1.2 mmol/L (1.1-1.4); Methemoglobin 0.1 % (0.4-1.5); Oxygen Device ROOM AIR; Oxygen Saturation ABG 95.9; PO2 ABG 74.1 mmHg (80.0-100.0); Potassium Level - ABG 3.9 mmol/L (3.5-5.0); Total Hemoglobin 16.8 g/dL (14-18)
[2022-04-16] MEDS: iohexol 350 mg/mL 500 mL Btl (per mL) IV (12:28)
== END 2022-04-16 14:43 | disposition home or self-care (01) ==
PROVIDERS: Emergency Provider Family Medicine; PCP Family Medicine
DX: J39.2 Other diseases of pharynx (principal); E07.9 Disorder of thyroid, unspecified; Z79.82 Long term (current) use of aspirin; Z79.01 Long term (current) use of anticoagulants; Z79.84 Long term (current) use of oral hypoglycemic drugs; I11.0 Hypertensive heart disease with heart failure; I50.30 Unspecified diastolic (congestive) heart failure; E78.5 Hyperlipidemia, unspecified; Z87.891 Personal history of nicotine dependence; Z85.9 Personal history of malignant neoplasm, unspecified
CPT/HCPCS: 36600; 70491; 71045; 80051; 80053; 82330; 82805; 85025; 93005; 94640; 96374; 99285; J2930; J7613; J7644; Q9967

== ENCOUNTER → 2022-04-17 12:51 | Outpatient (BNVA) | payer MEDICARE, BC, SELFPAY | PROVIDERS: PCP Family Medicine; Visit Provider Urology | DX: R33.8 Other retention of urine (principal); N47.2 Paraphimosis | CPT/HCPCS: 52000; 99213 ==

== ENCOUNTER 2022-05-31 10:09 | Emergency (ER) | payer MEDICARE, BC, SELFPAY ==
[2022-05-31 10:16] VITALS: BP 119/73; PULSE 80; RESP 16; TEMP 36.4; O2SAT 100; BMI 33.6
[2022-05-31 10:20] VITALS: BP 119/73; PULSE 83; O2SAT 99
--- NOTE | 2022-05-31 10:33 | PC.NURSE ---
RT at pt bedside
--- NOTE | 2022-05-31 10:36 | XRR_ITS ---
PROCEDURE INFORMATION: Exam: XR Soft Tissue Neck Exam date and time: 05/31/2022 10:43 AM Age: 87 years old Clinical indication: Device placement; Tracheostomy; Prior surgery; Surgery date: Post-operative (0-2 days); Additional info: Post tracheostomy appliance replacement TECHNIQUE: Imaging protocol: Radiologic exam of the soft tissues of the neck. COMPARISON: CT neck w con* [id number] 04/16/2022 12:27 PM FINDINGS: Tubes, catheters and devices: There is a tracheostomy tube a not well demonstrated due to body habitus projecting over the trachea at the level of C7-T1. In Airway: Unremarkable as visualized. No abnormal narrowing. Soft tissues: No evidence of epiglottitis. No prevertebral soft tissue swelling. Bones/joints: Degenerative changes mid-lower cervical spine. No acute bony abnormalities detected. XR/XR soft tissue neck [id number] IMPRESSION: No acute abnormalities.
--- NOTE | 2022-05-31 10:47 | W.ED.GENADLT ---
HPI - General Adult General: Chief complaint: General Medical Stated complaint: TRACH TUBE OUT Time Seen by Provider: 05/31/22 10:12 History of Present Illness: 87-year-old male presents emergency room is cleaning his trach tube and it came out he has not had any respiratory distress or difficulty. Presents to the ER via EMS note specific complaints since the cannula came loose. 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 This done in office to fill [place]el[place]. Associated symptoms: Deny chest pain, dyspnea, malaise, nausea, rash or vomiting Review of Systems Const: Denies: fever(s), chills, body aches, change in appetite, fatigue or malaise ENMT: Denies: throat pain, ear or mastoid pain, nasal discharge or nasal congestion Card: Denies: chest pain, edema, dyspnea on exertion or orthopnea Resp: Denies: dyspnea, productive cough or non-productive cough GI: Denies: abdominal pain, nausea, vomiting, hematemesis, coffee ground emesis, diarrhea, constipation, bloating, hematochezia or melena : Denies: flank pain, dysuria, urinary frequency or urinary urgency Skin/Breast: Denies: rash or pruritus PFSH ED PFSH: Medical History Atrial fibrillation Basal cell carcinoma Borderline diabetes COVID-19 vaccine administered Moderna Diastolic CHF Dyslipidemia History of rhabdomyolysis HTN (hypertension) Hypothyroid Malignant melanoma in situ Postprocedural wound infection Prostatic hypertrophy Squamous cell carcinoma in situ Surgical History History of bilateral knee replacement History of cataract surgery History of inguinal hernia repair History of thyroidectomy For Hurthle cell carcinoma Family History Father , in his 70's Lung disease Mother Heart attack Social History Smoking and tobacco status: former smoker Alcohol intake: current Alcohol intake frequency: holidays/special occasions only Household members: none Marital status: / Current occupational status: retired Physical Exam Const: COMMON NORMALS: no acute distress GENERAL APPEARANCE: cooperative and comfortable ORIENTATION/CONSCIOUSNESS: Yes awake, Yes oriented to person, Yes oriented to place and Yes oriented to time HENMT: COMMON NORMALS: normocephalic, atraumatic and hearing grossly normal bilaterally HEAD & SCALP: normocephalic and atraumatic Resp: COMMON NORMALS: normal respiratory effort, No retractions, No use of accessory muscles and clear to auscultation bilaterally AUSCULTATION: clear to auscultation bilaterally Cardio: COMMON NORMALS: regular rate, regular rhythm and No murmurs present (Cardio) RATE: regular rate RHYTHM: regular rhythm GI: COMMON NORMALS: Soft to palpation and No hepatosplenomegaly present AUSCULTATION: Yes normoactive bowel sounds PALPATION: Yes Soft to palpation, No Tenderness to palpation present (GI), No Guarding due to palpation present (GI) and Yes No hepatosplenomegaly present Extremity: COMMON NORMALS: normal to inspection, capillary refill normal, no clubbing, cyanosis or edema, no calf tenderness and no pedal edema Neuro: SENSORIUM/ORIENTATION: Yes oriented to person, Yes oriented to place and Yes oriented to time Skin: COMMON NORMALS: no rashes or lesions noted GENERAL SKIN EXAM: no rashes or lesions noted Course Vital Signs: Vital signs: Vital Signs Temperature 97.6 F 05/31/22 10:16 Pulse Rate 94 05/31/22 11:43 Respiratory Rate 16 05/31/22 11:43 Blood Pressure 119/73 05/31/22 10:20 Pulse Oximetry 99 05/31/22 11:43 Oxygen Delivery Sc thod 05/31/22 10:16 [facility] - General Adult Medical Decision Making Tracheostomy tube replaced confirmed placement by soft tissue lateral of the neck. Patient is doing well discharge home follow-up as needed Medical Records I reviewed the patient's medical records. Lab Data I reviewed the patient's lab results. Radiology Impressions Soft Tissue Neck X-Ray 05/31/22 10:36 IMPRESSION: No acute abnormalities. Discharge Plan Discharge Patient Disposition: Home Clinical Impression: Tracheostomy care Condition: Stable Prescriptions: No Action prazosin 5 mg capsule 5 mg PO DAILY amlodipine 10 mg tablet 10 mg PO DAILY tamsulosin 0.4 mg capsule 0.4 mg PO BID Qty: 180 3RF finasteride 5 mg tablet 5 mg PO QDAY Qty: 90 3RF famotidine 40 mg tablet 40 mg PO BID aspirin 81 mg Tablet,Delayed Release (Dr/Ec) 81 mg PO DAILY triamcinolone acetonide 0.1 % cream See Rx Instructions .ROUTE .COMPLEX Rx Instructions: applic topically as directed metformin 500 mg tablet extended release 24 hr 500 mg PO DAILY spironolactone 50 mg tablet 50 mg PO DAILY Rx Instructions: SEE PHARMACY COMMET Eliquis 2.5 mg Tablet 2.5 mg PO BID levothyroxine See Rx Instructions .ROUTE .COMPLEX Rx Instructions: TAKE DIRECTED furosemide 40 mg tablet 80 mg PO DAILY albuterol sulfate 90 mcg/actuation HFA aerosol inhaler 2 inh inhalation Q4H PRN (Reason: shortness of breath or wheezing) Qty: 8.5 0RF dexamethasone 4 mg tablet 4 mg PO QID Qty: 60 0RF Discharge Orders: Discharge ED (Routine); Ordered 05/31/22 Ordered By: Braydon Guallpa Referrals: Noel You MD [Primary Care Provider] - Patient Instructions: Opioid Safety, Pain Management Activity Restrictions/Additional Instructions: You were seen today for displacement of your tracheostomy. It was replaced and suctioned tolerated well continue routine care follow-up with ENT and oncology as previously scheduled. Coding Level of Care Code ED [place] [employer] for Katt Napier
--- NOTE | 2022-05-31 11:04 | PC.RESP ---
placed trach back in stoma. no problems. awaiting xray.
--- NOTE | 2022-05-31 11:23 | PC.NURSE ---
PT AMBULATED TO RESTROOM USING WALKER
[2022-05-31 11:43] VITALS: PULSE 94; RESP 16; O2SAT 99
== END 2022-05-31 11:44 | disposition home or self-care (01) ==
PROVIDERS: Emergency Provider Family Medicine; PCP Family Medicine
DX: Z43.0 Encounter for attention to tracheostomy (principal); I11.0 Hypertensive heart disease with heart failure; I50.30 Unspecified diastolic (congestive) heart failure; E78.5 Hyperlipidemia, unspecified; E03.9 Hypothyroidism, unspecified; Z87.891 Personal history of nicotine dependence
CPT/HCPCS: 70360; 94799; 99283

== ENCOUNTER 2022-06-06 08:00 | Inpatient (IN) | payer MEDICARE, BC, SELFPAY ==
[2022-06-06] VITALS (13 sets, daily range): BP systolic 122–156; BP diastolic 69–78; PULSE 75–92; RESP 16–20; TEMP 36.3–36.8; O2SAT 93–100; BMI 32.6
--- NOTE | 2022-06-06 08:05 | XR_ITS ---
WS: [id number] XR chest 1V portable [id number] REASON FOR EXAM: dyspnea/cough FINDINGS: Tracheostomy. Moderate tortuosity and ectasia of thoracic aorta. Mild cardiac enlargement. Reticular interstitial lung opacities in both lower lung welch. No pleural abnormality. 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 XR/XR chest 1V portable [id number] IMPRESSION: Lung bases changes as above likely representing acute/subacute pneumonitis.
--- NOTE | 2022-06-06 08:08 | ECG_ITS ---
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1935 Requested By: Braydon Romero Order Number: [id number] Merlin MD: TRACEY BECERRA Measurements Intervals [place] Rate: 82 P: 0 [place]: 0 QRS: -49 QRSD: 141 T: 100 QT: 402 QTc: 471 Interpretive Statements ATRIAL FIBRILLATION WITH ABERRANT CONDUCTION OR VENTRICULAR PREMATURE COMPLEXES LEFT AXIS DEVIATION [QRS AXIS < -30] LEFT BUNDLE BRANCH BLOCK [120+ ms QRS DURATION, 80+ ms Q/S IN V1/V2, 85+ ms R IN I/aVL/V5/V6] Compared to ECG 04/16/2022 10:32:04 Ventricular premature complex(es) now present Aberrant conduction of supraventricular beat(s) now present Left-axis deviation now present Left bundle-branch block now present Right-axis deviation no longer present Intraventricular conduction delay no longer present Electronically Signed On 06-07-2022 23:38:31 CDT by TRACEY BECERRA [id number]
--- NOTE | 2022-06-06 08:14 | W.ED.SOB ---
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 EMS called today for shortness of breath on arrival he had copious secretions at the tracheostomy he was given supplemental oxygen. On arrival here he is awake alert and stable. After cleaning his tracheostomy by RT he is satting much better but he is is still requiring oxygen supplementation at 6 L by tracheal mask. In addition to this he had some chest pain before arrival it is resolved by the time he arrives here. MD elicited complaint: shortness of breath and cough Pertinent past history: COPD and other (Tracheostomy) Onset (ago): hour(s) Timing: constant Severity: moderate Exacerbating factors: nothing Relieving factors: nothing Known history of: COPD Associated symptoms: Deny abdominal pain, chest congestion, chest pain, cough, diaphoresis, dizziness, extremity pain, fever(s), hemoptysis, lightheadedness, myalgias, nausea, orthopnea, palpitations, paresthesias, polydipsia, polyuria, rash, sense of impending doom, syncope or vomiting Review of Systems Const: Denies: fever(s), chills, fatigue, malaise or diaphoresis ENMT: Denies: throat pain, ear or mastoid pain, nasal discharge or nasal congestion Card: Denies: chest pain, palpitations, lightheadedness, syncope or orthopnea Resp: Reports: dyspnea and productive cough; Denies: hemoptysis or chest congestion GI: Denies: abdominal pain, nausea or vomiting : Denies: flank pain, dysuria, urinary frequency or urinary urgency Musc: Denies: extremity pain Skin/Breast: Denies: rash or pruritus Neuro: Denies: dizziness Endo: Denies: polyuria or polydipsia PFS ED PFSH: Medical History Atrial fibrillation Basal cell carcinoma Borderline diabetes COVID-19 vaccine administered Moderna Diastolic CHF Dyslipidemia History of rhabdomyolysis HTN (hypertension) Hypothyroid Malignant melanoma in situ Postprocedural wound infection Prostatic hypertrophy Squamous cell carcinoma in situ Surgical History History of bilateral knee replacement History of cataract surgery History of inguinal hernia repair History of thyroidectomy For Hurthle cell carcinoma Family History Father , in his 70's Lung disease Mother Heart attack Social History Smoking and tobacco status: former smoker Alcohol intake: current Alcohol intake frequency: holidays/special occasions only Household members: none Marital status: / Current occupational status: retired Physical Exam Const: COMMON NORMALS: no acute distress GENERAL APPEARANCE: cooperative and comfortable ORIENTATION/CONSCIOUSNESS: Yes awake, Yes oriented to person, Yes oriented to place and Yes oriented to time HENMT: COMMON NORMALS: normocephalic, atraumatic and hearing grossly normal bilaterally HEAD & SCALP: normocephalic and atraumatic Resp: COMMON NORMALS: normal respiratory effort, No retractions and No use of accessory muscles AUSCULTATION: rhonchi and wheezes Cardio: COMMON NORMALS: regular rate and No murmurs present (Cardio) RATE: regular rate RHYTHM: abnormal rhythm irregularly irregular GI: COMMON NORMALS: Soft to palpation and No hepatosplenomegaly present AUSCULTATION: Yes normoactive bowel sounds PALPATION: Yes Soft to palpation, No Tenderness to palpation present (GI), No Guarding due to palpation present (GI) and Yes No hepatosplenomegaly present Extremity: COMMON NORMALS: capillary refill normal and no calf tenderness GENERAL: Yes edema (Chronic edema lower extremities) Neuro: SENSORIUM/ORIENTATION: Yes oriented to person, Yes oriented to place and Yes oriented to time Skin: COMMON NORMALS: no rashes or lesions noted GENERAL SKIN EXAM: no rashes or lesions noted Course Vital Signs: Vital signs: Vital Signs Temperature 98.3 F 06/06/22 13:23 Pulse Rate 84 06/06/22 13:23 Respiratory Rate 18 06/06/22 13:23 Blood Pressure 125/73 06/06/22 13:23 Pulse Oximetry 96 06/06/22 13:23 Oxygen Delivery Me thod 06/06/22 13:23 Oxygen Flow Rate 6 06/06/22 13:23 Fraction of Inspir ed Oxygen 40 06/06/22 08:25 MDM - SOB/Dyspnea Medical Decision Making EMS called in as a code 2 on arrival patient is in no respiratory distress. RT at the bedside they suction did not get much but did remove the inner cannula there is a large amount of thick mucus attached to it she cleaned this and patient is satting much better now we are titrating his oxygen down. He denies any chest pain at this time EKG shows A-fib with left bundle branch block which is present previously there is not any acute ST changes by Sgarbossa's criteria. Patient in no respiratory distress at this time. Respiratory rate is normal after cleaning tracheostomy. Patient did report chest pain earlier to EMS states it is resolved at this point. Cardiac work-up. Delta troponin positive will admit treat with IV antibiotics discussed with hospitalist orders written cultures done as well. Medical Records I reviewed the patient's medical records. Lab Data I reviewed the patient's lab results. 06/06/22 08:27 06/06/22 08:27 Labs/Radiology: Radiology Impressions Chest X-Ray 06/06/22 08:05 IMPRESSION: Lung bases changes as above likely representing acute/subacute pneumonitis. Laboratory Results WBC 6.5 10^3/uL (4.0-10.0) 06/06/22 08:27 RBC 3.51 10^6/uL (4.1-5.3) L 06/06/22 08:27 Hgb 10.8 g/dL (11.7-16.6) L 06/06/22 08:27 Hct 34.5 % (42.0-52.0) L 06/06/22 08:27 MCV 98.3 fl (80-94) H 06/06/22 08:27 MCH 30.8 pg (28.0-34.0) 06/06/22 08:27 MCHC 31.3 g/dL (30.0-36.0) 06/06/22 08:27 RDW 15.6 % (12.1-15.1) H 06/06/22 08:27 Plt Count 355 10^3/cmm (130-400) 06/06/22 08:27 MPV 9.1 fL (7.4-10.4) 06/06/22 08:27 Neut % (Auto) 75.6 % 06/06/22 08:27 Lymph % (Auto) 15.2 % 06/06/22 08:27 [place] % (Auto) 4.9 % 06/06/22 08:27 Eos % (Auto) 2.9 % 06/06/22 08:27 Baso % (Auto) 0.5 % 06/06/22 08:27 Neut # (Auto) 4.93 10^3/uL (1.8-7.7) 06/06/22 08:27 Lymph # (Auto) 1.0 10^3/uL (0.8-4.8) 06/06/22 08:27 [place] # (Auto) 0.3 10^3/uL (0.2-0.9) 06/06/22 08:27 Eos # (Auto) 0.2 10^3/uL (0.0-0.8) 06/06/22 08:27 Baso # (Auto) 0.0 10^3/uL (0.0-0.1) 06/06/22 08:27 Nucleated RBC % (auto) 0 % 06/06/22 08:27 Nucleated RBCs # 0.0 /100WBC 06/06/22 08:27 Sodium 140 mmol/L (136-145) 06/06/22 08:27 Potassium 5.0 mmol/L (3.5-5.1) 06/06/22 08:27 Chloride 105 mmol/L (98-107) 06/06/22 08:27 Carbon Dioxide 24 mmol/L (22-29) 06/06/22 08:27 Anion Gap 16.0 (5-19) 06/06/22 08:27 BUN 14 mg/dL (8-23) 06/06/22 08:27 Creatinine 1.0 mg/dL (0.7-1.2) 06/06/22 08:27 GFR Calculation Not Reportable 06/06/22 08:27 Glucose 149 mg/dL (65-115) H 06/06/22 08:27 Calculated Osmolality 293 mOsm/kg (285-295) 06/06/22 08:27 Calcium 8.5 mg/dL (8.5-10.5) 06/06/22 08:27 Total Bilirubin 0.3 mg/dL (0.15-1.2) 06/06/22 08:27 AST 14 U/L (0-40) 06/06/22 08:27 ALT 11 U/L (0-41) 06/06/22 08:27 Alkaline Phosphatase 72 U/L (40-130) 06/06/22 08:27 Troponin T Baseline 91 ng/L (0-15) H 06/06/22 08:27 Troponin T 120 Minute 112.2 ng/L (0-15) H 06/06/22 10:30 Delta Troponin T 21.2 ABS# (0-10) H* 06/06/22 10:30 Total Protein 6.6 g/dL (6.6-8.7) 06/06/22 08:27 Albumin 3.2 g/dL (3.5-5.2) L 06/06/22 08:27 Globulin 3.4 g/dL (1.3-4.6) 06/06/22 08:27 Urine Color Yellow (Yellow) 06/06/22 10:00 Urine Appearance Cloudy (CLEAR) A 06/06/22 10:00 Urine pH 7 (5-7) 06/06/22 10:00 Ur Specific [place] 1.010 (1.005-1.030) 06/06/22 10:00 Urine Protein Neg (Negative) 06/06/22 10:00 Urine Glucose (UA) Norm (Normal) 06/06/22 10:00 Urine Ketones Negative (Negative) 06/06/22 10:00 Urine Blood 2+ (Negative) H 06/06/22 10:00 Urine Nitrate Negative (Negative) 06/06/22 10:00 Urine Bilirubin Neg (Negative) 06/06/22 10:00 Urine Urobilinogen Neg mg/dL (Negative) 06/06/22 10:00 Ur Leukocyte Esterase 2+ (Negative) H 06/06/22 10:00 Urine RBC 5-10 /hpf (0-2) H 06/06/22 10:00 Urine WBC >100 /hpf (0-5) H 06/06/22 10:00 Ur Squamous Epith Cells None /hpf (0-5) 06/06/22 10:00 Amorphous Sediment Not Reportable 06/06/22 10:00 Urine Bacteria 4+ /hpf (NONE) H 06/06/22 10:00 Discharge Plan Discharge Patient Disposition: Admitted As Inpatient Admit Provider: Meng,Yoni Clinical Impression: Pneumonia, Atrial fibrillation, Elevated troponin, Tracheostomy complication Condition: Stable Coding Level of Care Code ED Executive Relations Specialist for Katt Napier
[2022-06-06 08:33] LABS: Basophils % 0.5 %; Eosinophils # 0.2 10^3/uL (0.0-0.8); Eosinophils % 2.9 %; Hematocrit 34.5 % (42.0-52.0); Hemoglobin 10.8 g/dL (11.7-16.6); Lymphocytes % 15.2 %; Mean Corpuscular HGB Conc 31.3 g/dL (30.0-36.0); Mean Corpuscular Hemoglobin 30.8 pg (28.0-34.0); Mean Corpuscular Volume 98.3 fl (80-94); Mean Platelet Volume 9.1 fL (7.4-10.4); Monocytes # 0.3 10^3/uL (0.2-0.9); Monocytes % 4.9 %; Neutrophils # 4.93 10^3/uL (1.8-7.7); Neutrophils % 75.6 %; Nucleated Red Blood Cells % 0 %; Platelet Count 355 10^3/cmm (130-400); Red Blood Count 3.51 10^6/uL (4.1-5.3); Red Cell Distribution Width 15.6 % (12.1-15.1); White Blood Count 6.5 10^3/uL (4.0-10.0)
[2022-06-06 09:02] LABS: Alanine Aminotransferase 11 U/L (0-41); Albumin Level 3.2 g/dL (3.5-5.2); Alkaline Phosphatase 72 U/L (40-130); Aspartate Amino Transferase 14 U/L (0-40); Blood Urea Nitrogen 14 mg/dL (8-23); Calcium 8.5 mg/dL (8.5-10.5); Carbon Dioxide 24 mmol/L (22-29); Chloride 105 mmol/L (98-107); Globulin 3.4 g/dL (1.3-4.6); Glucose 149 mg/dL (65-115); Osmolality Calculated 293 mOsm/kg (285-295); Sodium 140 mmol/L (136-145); Total Bilirubin 0.3 mg/dL (0.15-1.2); Total Protein 6.6 g/dL (6.6-8.7)
[2022-06-06 09:06] LABS: Troponin(5th) Baseline 91 ng/L (0-15)
--- NOTE | 2022-06-06 10:06 | ECG_ITS ---
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1935 Requested By: Braydon Romero Order Number: [id number] Reading MD: TRACEY BECERRA Measurements Intervals [place] Rate: 71 P: 0 [place]: 0 QRS: -42 QRSD: 147 T: 137 QT: 397 QTc: 434 Interpretive Statements ATRIAL FIBRILLATION WITH ABERRANT CONDUCTION OR VENTRICULAR PREMATURE COMPLEXES LEFT AXIS DEVIATION [QRS AXIS < -30] LEFT BUNDLE BRANCH BLOCK [120+ ms QRS DURATION, 80+ ms Q/S IN V1/V2, 85+ ms R IN I/aVL/V5/V6] Compared to ECG 06/06/2022 08:08:40 No significant changes Electronically Signed On 06-07-2022 23:44:34 CDT by TRACEY BECERRA [id number]
--- NOTE | 2022-06-06 10:06 | PC.PHAR ---
PT UNABLE TO VERIFY MEDICATIONS LIVES BY HIMSELF- MEDICATIONS VERIFIED CALLING BOTH PHARMACIES LISTED WELL PTS PCP
[2022-06-06 10:24] LABS: Add Urine Culture? Yes; Add Urine Microscopic? YES; Bacteria Urine 4+ /hpf; Bilirubin Urine Neg (Negative); Blood Urine 2+ (Negative); Glucose Urine UA Norm (Normal); Ketones Urine Negative (Negative); Leukocyte Esterase Urine 2+ (Negative); Nitrate Urine Negative (Negative); Protein Urine Neg (Negative); Urine Appearance Cloudy (CLEAR); Urine Color Yellow (Yellow); Urobilinogen Urine Neg (Negative); WBC Urine >100 /hpf (0-5); pH Urine 7 (5-7)
[2022-06-06] MEDS: levofloxacin-dextrose 5 % 750 MG/150 ML PREMIX 100 MG IV (10:24)
[2022-06-06] MEDS: meropenem 1,000 MG in sodium chloride 0.9% (plus) 50 ML 100 MG IV (10:24)
[2022-06-06 11:19] LABS: Troponin 5 2HR 112.2 ng/L (0-15); Troponin 5 2HR Delta 21.2 ABS# (0-10)
[2022-06-06] MEDS: vancomycin 1,000 MG in sodium chloride 0.9% 250 ML 250 MG IV (11:32)
[2022-06-06] MEDS: nitroglycerin 1 gm/inch oint Pkt 0.5 INCH TOPICAL (11:42)
--- NOTE | 2022-06-06 12:06 | P.HP_ITS ---
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 Came in today as he was experiencing worsening shortness of breath as well as copious amount of secretion at the tracheostomy, requiring the need for supplemental oxygen, usually he is not on oxygen, currently requiring 6 L oxygen through tracheal mask, tracheostomy was cleaned in the ER by RT. X-ray chest has shown: Reticular interstitial lung opacities in both lower lung welch. Pertinent Labs: WBC 6.5, H&H 10.8/34 , PLT : 355 , sodium 140, potassium 5, BUN 14, serum creatinine 1 Urinalysis is dirty: Too numerous urine WBC, 4+ bacteria, 2+ leukocyte esterase positive, urine nitrate negative. Troponin trend:91-112-212 EKG: A-fib with left bundle branch block (currently patient does not meet either sgarbossa for modified sgarbossa criteria) Patient is currently denying any chest pain. Received vancomycin meropenem and levofloxacin 1 dose in ER. Review of Systems General: Reports: 10 or more systems reviewed and unremarkable except in HPI and below Const: Denies: fever(s), chills, body aches, change in appetite or diaphoresis Card: Denies: palpitations, edema, swelling of feet/ankles, dyspnea on exertion, orthopnea or leg pain with exertion Resp: Reports: dyspnea and productive cough; Denies: wheezing or pain on inspiration GI: Denies: abdominal pain Medications/Allergies Home Medications Medication Instructions Recorded Confirmed Last Taken Type apixaban 2.5 mg tablet (Eliquis) 2.5 mg PO BID 11/06/20 06/06/22 Unknown History aspirin 81 mg tablet,delayed 81 mg PO DAILY 11/06/20 06/06/22 11/06/20 History release famotidine 40 mg tablet 40 mg PO BID 11/06/20 06/06/22 11/06/20 History metformin 500 mg tablet,extended 500 mg PO DAILY 11/06/20 06/06/22 11/06/20 History release 24 hr spironolactone 50 mg tablet 50 mg PO DAILY 11/06/20 06/06/22 11/06/20 History amlodipine 10 mg tablet 10 mg PO DAILY 04/04/22 06/06/22 Unknown History furosemide 40 mg tablet 80 mg PO DAILY 04/04/22 06/06/22 Unknown History prazosin 5 mg capsule 5 mg PO DAILY 04/04/22 06/06/22 Unknown History tamsulosin 0.4 mg capsule 0.4 mg PO BID #180 caps 04/04/22 06/06/22 Unknown Rx albuterol sulfate 90 mcg/actuation 2 inh inhalation Q4H PRN shortness 04/12/22 06/06/22 Unknown Rx aerosol inhaler of breath or wheezing #8.5 grams finasteride 5 mg tablet 5 mg PO QDAY #90 tabs 04/17/22 06/06/22 Unknown Rx calcium carbonate 600 mg-vitamin 1 tab PO DAILY 06/06/22 06/06/22 Unknown History D3 5 mcg (200 unit) tablet cyanocobalamin (vitamin B-12) 250 250 mcg PO DAILY 06/06/22 06/06/22 Unknown History mcg tablet (Vitamin B-12) levothyroxine 50 mcg tablet 50 mcg PO DAILY 06/06/22 06/06/22 Unknown History vitamin E 268 mg (400 unit) capsule 268 mg PO DAILY 06/06/22 06/06/22 Unknown History Allergies Allergy/AdvReac Type Severity Reaction Status Date / Time ketorolac [From Toradol] Allergy unk Verified 06/06/22 10:02 penicillin G Allergy hives Verified 06/06/22 10:02 PFSH Acute PFSH: Medical History Atrial fibrillation Basal cell carcinoma Borderline diabetes COVID-19 vaccine administered Moderna Diastolic CHF Dyslipidemia History of rhabdomyolysis HTN (hypertension) Hypothyroid Malignant melanoma in situ Postprocedural wound infection Prostatic hypertrophy Squamous cell carcinoma in situ Surgical History History of bilateral knee replacement History of cataract surgery History of inguinal hernia repair History of thyroidectomy For Hurthle cell carcinoma Family History Father , in his 70's Lung disease Mother Heart attack Social History (Reviewed 06/06/22 @ 08:20 by AYAAN Kumari Smoking and tobacco status: former smoker Alcohol intake: current Alcohol intake frequency: holidays/special occasions o nly Household members: none Marital status: / Current occupational status: retired Vitals/I&O/Wt Last Vital Signs Temp 97.8 F 06/06/22 08:03 Pulse 77 06/06/22 10:51 Resp 16 06/06/22 10:51 BP 142/78 06/06/22 10:51 Pulse Ox 98 06/06/22 10:51 O2 Del Method 06/06/22 08:25 FiO2 40 06/06/22 08:25 06/05/22 06/06/22 06/06/22 22:59 06:59 14:59 Intake Total 50 / 50 Balance 50 / 50 Weight last 48 hrs Weight 122.47 kg Physical Exam HENMT: COMMON NORMALS: normocephalic and atraumatic HEAD & SCALP: normocephalic and atraumatic Neck/C-Spine: OTHER: treach in place. Resp: COMMON NORMALS: clear to auscultation bilaterally EFFORT & INSPECTION: Yes symmetric chest movement AUSCULTATION: clear to auscultation bilaterally Cardio: COMMON NORMALS: regular rate, regular rhythm, S1 normal heart sound present, S2 normal heart sound present, No gallops present (Cardio), No murmurs present (Cardio), No rub (Cardio) and Peripheral pulses 2+ throughout RATE: regular rate RHYTHM: regular rhythm HEART SOUNDS: S1 normal heart sound present and S2 normal heart sound present PERIPHERAL PULSES: Peripheral pulses 2+ throughout GI: COMMON NORMALS: Normal to inspection, nondistended, normoactive bowel sounds present, Soft to palpation, non-tender, No hepatosplenomegaly present and no masses AUSCULTATION: Yes normoactive bowel sounds PALPATION: Yes Soft to palpation and Yes No hepatosplenomegaly present RECTAL EXAM: Yes deferred Extremity: NARRATIVE EXTREMITY EXAM: 1-2+ bilateral lower extremity pitting edema Data 06/06/22 08:27 06/06/22 08:27 Micro: Microbiology 06/06/22 10:35 Blood Culture - Preliminary Blood SPECIMEN COLLECTED 06/06/22 10:30 Blood Culture - Preliminary Blood SPECIMEN COLLECTED A&P Assessment and plan (1) HTN (hypertension): Qualifiers: Hypertension type: essential hypertension Qualified Code(s): I10 - Essential (primary) hypertension (2) Hypothyroid: Qualifiers: Hypothyroidism type: postoperative Qualified Code(s): E89.0 - Postprocedural hypothyroidism (3) Tracheostomy care: (4) Pneumonia: (5) NSTEMI (non-ST elevated myocardial infarction): (6) UTI (urinary tract infection): Plan 87 year old male past medical history of hypertension diabetes atrial fibrilla tion hypothyroidism,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 Came in today as he was experiencing worsening shortness of breath as well as copious amount of secretion at the tracheostomy, requiring the need for supplemental oxygen, usually he is not on oxygen, currently requiring 6 L oxygen through tracheal mask. Assessment: Pneumonia: X-ray chest has shown: Reticular interstitial lung opacities in both lower lung welch, increased yellow-green secretion through tracheostomy site, worsening cough. Follow blood culture, Urine culture Sputum Gram stain and culture Urine Legionella antigen Bacterial antigen panel MRSA PCR Currently is empirically kept on broad-spectrum antibiotic with vancomycin and meropenem NSTEMI: Troponin trend:91-112-212 EKG: A-fib with left bundle branch block (currently patient does not meet either sgarbossa for modified sgarbossa criteria) Currently is denying chest pain Follow 2D echo Continue telemetry monitoring, serial EKG monitoring Currently on aspirin, therapeutic anticoagulation with Lovenox, statin Possible cardiology consult UTI: Follow urine culture On Broad-spectrum antibiotics History of atrial fibrillation: Currently rate is decently controlled On therapeutic anticoagulation with Lovenox we will resume Eliquis on discharge Continue telemetry monitoring History of diabetes: SSI, monitor fingerstick glucose History of hypothyroidism: Continue levothyroxine History of hypertension: Continue amlodipine, and Minipress H/O HFpEF : Continue Lasix 40 p.o. daily Monitor intake output charting Monitor daily weight Monitor electrolytes Attestations Medical Necessity Statement*: Patient is to be in hospital for management of pneumonia NSTEMI. Anticipated length of stay greater to 2 2midnight Coding Level of Care Code 38080 Diagnoses HTN (hypertension) I10 Hypertension type: essential hypertension Hypothyroid E89.0 Hypothyroidism type: postoperative Tracheostomy care Z43.0 Pneumonia J18.9 NSTEMI (non-ST elevated myocardial infarction) I21.4 UTI (urinary tract infection) N39.0
[2022-06-06] MEDS: ipratropium-albuterol 3 mL Neb INHALATION ×2 (13:32→21:07)
--- NOTE | 2022-06-06 14:06 | ECG_ITS ---
[facility] Test Date: 2022-06-06 Pat Name: Earle De La Rosa Department: Room: 273 Gender: Male [employer]: : 1935 Requested By: Braydon Romero Order Number: [id number] Reading MD: TRACEY BECERRA Measurements Intervals [place] Rate: 73 P: 0 MD: 0 QRS: -51 QRSD: 143 T: 145 QT: 406 QTc: 450 Interpretive Statements ATRIAL FIBRILLATION WITH ABERRANT CONDUCTION OR VENTRICULAR PREMATURE COMPLEXES LEFT AXIS DEVIATION [QRS AXIS < -30] LEFT BUNDLE BRANCH BLOCK [120+ ms QRS DURATION, 80+ ms Q/S IN V1/V2, 85+ ms R IN I/aVL/V5/V6] Compared to ECG 06/06/2022 10:21:50 No significant changes Electronically Signed On 06-07-2022 23:44:03 CDT by TRACEY BECERRA [id number] f
[2022-06-06] MEDS: sodium chloride 0.9% 1,000 ML 100 ML IV ×2 (14:15→22:14)
[2022-06-06 15:24] LABS: Troponin 5 6HR 212.5 ng/L (0-15); Troponin 5 6HR Delta 121.5 ng/L (0-12)
[2022-06-06 17:18] LABS: Glucose Point of Care 174 mg/dL (70-110)
[2022-06-06] MEDS: meropenem 500 MG in sodium chloride 0.9% (plus) 50 ML 100 MG IV (17:49)
[2022-06-06] MEDS: insulin lispro 100 unit/1 mL SUBCUT ×2 (17:50→22:13)
[2022-06-06] MEDS: enoxaparin 120 mg/0.8 mL Syringe SUBCUT (17:50)
[2022-06-06] MEDS: atorvastatin 40 mg Tablet PO (20:57)
[2022-06-06 21:26] LABS: Glucose Point of Care 176 mg/dL (70-110)
[2022-06-06] MEDS: vancomycin 1,500 MG/300 ML PIGGYBACK 200 MG IV (22:14)
[2022-06-06] MEDS: nitroglycerin 0.4 mg sublingual Tablet SUBLINGUAL (22:14)
[2022-06-07] VITALS (11 sets, daily range): BP systolic 97–127; BP diastolic 61–73; PULSE 66–82; RESP 16–26; TEMP 36.3–36.7; O2SAT 98–100
[2022-06-07] MEDS: ipratropium-albuterol 3 mL Neb INHALATION ×7 (02:20→19:43)
[2022-06-07] MEDS: meropenem 500 MG in sodium chloride 0.9% (plus) 50 ML 100 MG IV ×3 (03:37→17:33)
[2022-06-07 04:23] LABS: Basophils # 0.1 10^3/uL (0.0-0.1); Basophils % 0.6 %; Eosinophils # 0.3 10^3/uL (0.0-0.8); Eosinophils % 3.7 %; Hemoglobin 10.9 g/dL (11.7-16.6); Lymphocytes # 1.2 10^3/uL (0.8-4.8); Lymphocytes % 13.2 %; Mean Corpuscular HGB Conc 31.1 g/dL (30.0-36.0); Mean Corpuscular Hemoglobin 30.8 pg (28.0-34.0); Mean Corpuscular Volume 98.9 fl (80-94); Mean Platelet Volume 9.4 fL (7.4-10.4); Monocytes # 0.5 10^3/uL (0.2-0.9); Monocytes % 5.3 %; Neutrophils # 6.96 10^3/uL (1.8-7.7); Neutrophils % 76.5 %; Nucleated Red Blood Cells % 0 %; Platelet Count 415 10^3/cmm (130-400); Red Blood Count 3.54 10^6/uL (4.1-5.3); Red Cell Distribution Width 15.6 % (12.1-15.1); White Blood Count 9.1 10^3/uL (4.0-10.0)
[2022-06-07 04:51] LABS: Alanine Aminotransferase 14 U/L (0-41); Albumin Level 3.2 g/dL (3.5-5.2); Alkaline Phosphatase 73 U/L (40-130); Anion Gap 14.6 (5-19); Aspartate Amino Transferase 37 U/L (0-40); Blood Urea Nitrogen 14 mg/dL (8-23); Calcium 8.7 mg/dL (8.5-10.5); Carbon Dioxide 24 mmol/L (22-29); Chloride 103 mmol/L (98-107); Globulin 3.3 g/dL (1.3-4.6); Glucose 113 mg/dL (65-115); Magnesium 2.1 mg/dL (1.7-2.3); Osmolality Calculated 285 mOsm/kg (285-295); Potassium 4.6 mmol/L (3.5-5.1); Procalcitonin 0.06 ng/mL (0-0.5); Sodium 137 mmol/L (136-145); Total Bilirubin 0.3 mg/dL (0.15-1.2); Total Protein 6.5 g/dL (6.6-8.7)
[2022-06-07] MEDS: enoxaparin 120 mg/0.8 mL Syringe SUBCUT ×2 (05:50→17:32)
--- NOTE | 2022-06-07 06:00 | USCV_ITS ---
EstrellaEarle leach Age: 87 Gender: M : 1935 Exam Date: 06/07/2022 10:28 Ordering Phys: Yoni Meng MD Technologist: TRICIA Exam Location: [facility] [place] Indication: nstemi BP: / HR: 57 Rhythm: Sinus Technical Quality: Adequate MEASUREMENTS (Male / Female) Normal Values 2D ECHO LV Diastolic Diameter PLAX 6.3 cm 4.2 - 5.9 / 3.9 - 5.3 cm LV Systolic Diameter PLAX 5.0 cm IVS Diastolic Thickness 1.2 cm 0.6 - 1.0 / 0.6 - 0.9 cm IVS Systolic Thickness 1.5 cm LVPW Diastolic Thickness 1.1 cm 0.6 - 1.0 / 0.6 - 0.9 cm LVPW Systolic Thickness 1.3 cm LVOT Diameter 2.1 cm LV Ejection Fraction 2D Teich 41.2 % LV Ejection Fraction MOD 2C 35.8 % LV Ejection Fraction 2C AL 36.6 % LA Diameter 4.3 cm M-MODE Aortic Annulus Diameter 3.2 cm LA Ao Ratio MM 1.4 MV E Point Septal Separation 1.4 cm DOPPLER AV Peak Velocity 151.0 cm/s LVOT Peak Velocity 81.0 cm/s AV Area Cont Eq vti 1.5 cm squared AV Area Cont Eq pk 1.8 cm squared MV Area PHT 5.0 cm squared Mitral E to A Ratio 3.1 MV E' Velocity 57.5 cm/s Mitral E to MV E' Ratio 28.0 Mitral E to LV E' Lateral Ratio 32.9 Mitral E to LV E' Septal Ratio 24.4 TR Peak Velocity 289.0 cm/s TR Peak Gradient 33.4 mmHg TV Peak E Velocity 66.0 cm/s Right Atrial Pressure 9.0 mmHg Pulmonary Artery Systolic Pressu 42.4 mmHg FINDINGS Left Ventricle Moderately increased left ventricular cavity size. Severely decreased left ventricular systolic function. Left ventricular ejection fraction is estimated at 35 %. There appeared to be mid to distal anterior septal and apical akinesis. Right Ventricle The right ventricle is normal in size and function. Right Atrium The right atrium is normal in size. Left Atrium The left atrium is normal in size. Mitral Valve Moderately thickened mitral valve. No mitral valve stenosis. Moderate mitral annular calcification. Mild mitral valve regurgitation. Aortic Valve Moderate aortic valve calcification. Moderate aortic valve stenosis, mean gradient 5.1 mmHg, MORIS 1.5 cm squared. Mild aortic valve regurgitation. Tricuspid Valve Structurally normal tricuspid valve without significant stenosis or regurgitation. Pulmonary artery systolic pressure is normal. Pulmonic Valve Structurally normal pulmonic valve without significant stenosis. There is no pulmonic regurgitation. Pericardium Normal pericardium without effusion. Aorta Normal ascending aorta dimension. IVC The inferior vena cava appears normal. CONCLUSIONS 1-Moderately increased left ventricular cavity size. Severely decreased left ventricular systolic function. Left ventricular ejection fraction is estimated at 35 %. There appeared to be mid to distal anterior septal and apical akinesis. 2-Moderately thickened mitral valve. No mitral valve stenosis. Moderate mitral annular calcification. Mild mitral valve regurgitation. 3-Moderate aortic valve calcification. Moderate aortic valve stenosis, mean gradient 5.1 mmHg, MORIS 1.5 cm squared. Mild aortic valve regurgitation. 4-There is no pericardial effusion. 5-Right atrial pressure is around 5 mm of mercury. Faith Whitman MD (Electronically Signed) Final Date: 07 June 2022 12:31 S
[2022-06-07 06:23] LABS: Glucose Point of Care 128 mg/dL (70-110)
[2022-06-07] MEDS: prazosin 5 mg Capsule PO (09:28)
[2022-06-07] MEDS: levothyroxine 50 mcg Tablet PO (09:28)
[2022-06-07] MEDS: FUROsemide 40 mg Tablet PO (09:28)
[2022-06-07] MEDS: amlodipine 10 mg Tablet PO (09:29)
[2022-06-07] MEDS: aspirin 81 mg EC Tablet PO (09:29)
[2022-06-07] MEDS: sodium chloride 0.9% 1,000 ML 100 ML IV (09:30)
--- NOTE | 2022-06-07 09:52 | P.PN_ITS ---
Subjective Subjective: Patient was seen and examined this morning, shortness of breath is improved, has been afebrile overnight, was complaining of 2 episodes of chest tightness since admission, last night he rated chest tightness at 6 out of 10, received sublingual nitro which helped, today in the morning is complaining of chest tightness which is about 2-3 not bothering him a lot. 2D echo has been ordered and is pending Medications: Medication Review Details: Generic Name Dose Route Start Last Admin Trade Name Rylee PRN Reason Stop Dose Admin Albuterol/Ipratrop ium 3 ml 06/06/22 14:00 06/07/22 08:28 Ipratropium-Albu terol 3 Ml Neb INHALATION 3 ml Q6H.RESP ROXANA Administration Albuterol/Ipratrop ium 3 ml 06/06/22 14:00 06/07/22 02:20 Ipratropium-Albu terol 3 Ml Neb INHALATION 3 ml Q6H.RESP ROXANA Administration Amlodipine Besylat e 10 mg 06/07/22 09:00 06/07/22 09:29 Amlodipine 10 Mg Tablet PO 10 mg DAILY ROXANA Administration Aspirin 81 mg 06/07/22 09:00 06/07/22 09:29 Aspirin 81 Mg Ec Tablet PO 81 mg DAILY ROXANA Administration Atorvastatin Calci um 40 mg 06/06/22 21:00 06/06/22 20:57 Atorvastatin 40 Mg Tablet PO 40 mg BEDTIME ROXANA Administration Enoxaparin Sodium 120 mg 06/06/22 18:00 06/07/22 05:50 Enoxaparin 120 M g/0.8 Ml Syringe SUBCUT 120 mg Q12H ROXANA Administration Furosemide 40 mg 06/07/22 08:00 06/07/22 09:28 Furosemide 40 Mg Tablet PO 40 mg DAILY@0800 ROXANA Administration Vancomycin/PEG/NAD A/Lysine/Water 1,500 mg in 300 m ls @ 200 mls/hr 06/06/22 23:00 06/06/22 23:44 Vancocin IV Infused Q12H ROXANA Infusion Meropenem 500 mg/ Sodium 50 mls @ 100 mls/ hr 06/06/22 18:00 06/07/22 09:33 Chloride IV 100 mls/hr Q8H ROXANA Administration Protocol Sodium Chloride 1,000 mls @ 100 m ls/hr 06/06/22 13:14 06/07/22 09:30 Sodium Chloride 0.9% IV 100 mls/hr .Q10H ROAXNA Administration Insulin Human Lisp ro 0 unit 06/06/22 18:00 06/07/22 09:29 Insulin Lispro 1 00 Unit/1 Ml SUBCUT Not Given WM&BEDTIME [facility] Protocol Levothyroxine Sodi um 50 mcg 06/07/22 09:00 06/07/22 09:28 Levothyroxine 50 Mcg Tablet PO 50 mcg DAILY ROXANA Administration Nitroglycerin 0.4 mg 06/06/22 19:06 06/06/22 22:14 Nitroglycerin 0. 4 Mg Sublingual Ta blet SUBLINGUAL 0.4 mg Q5M PRN Administration CHEST PAIN Prazosin HCl 5 mg 06/07/22 09:00 06/07/22 09:28 Prazosin 5 Mg Ca psule PO 5 mg DAILY ROXANA Administration Vitals/I&O/Wt Last Vital Signs Temp 97.4 F L 06/07/22 08:00 Pulse 77 06/07/22 08:00 Resp 16 06/07/22 08:00 BP 127/73 06/07/22 08:00 Pulse Ox 99 06/07/22 08:00 O2 Del Method 06/07/22 08:00 O2 Flow Rate 5.5 06/07/22 08:00 FiO2 28 06/07/22 08:00 06/06/22 06/07/22 06/07/22 22:59 06:59 14:59 Intake Total 1088.333 / 1538.333 550 / 2088.333 1480 / 1480 Output Total 200 / 200 Balance 888.333 / 1338.333 550 / 2841.330 1787 / 1480 Weight last 48 hrs Weight 118.586 kg Weight 122.47 kg Physical Exam HENMT: COMMON NORMALS: normocephalic and atraumatic HEAD & SCALP: normocephalic and atraumatic Neck/C-Spine: OTHER: treach in place. Resp: COMMON NORMALS: clear to auscultation bilaterally EFFORT & INSPECTION: Yes symmetric chest movement AUSCULTATION: clear to auscultation bilaterally Cardio: COMMON NORMALS: regular rate, regular rhythm, S1 normal heart sound present, S2 normal heart sound present, No gallops present (Cardio), No murmurs present (Cardio), No rub (Cardio) and Peripheral pulses 2+ throughout RATE: regular rate RHYTHM: regular rhythm HEART SOUNDS: S1 normal heart sound present and S2 normal heart sound present PERIPHERAL PULSES: Peripheral pulses 2+ throughout GI: COMMON NORMALS: Normal to inspection, nondistended, normoactive bowel sounds present, Soft to palpation, non-tender, No hepatosplenomegaly present and no masses AUSCULTATION: Yes normoactive bowel sounds PALPATION: Yes Soft to palpation and Yes No hepatosplenomegaly present RECTAL EXAM: Yes deferred Extremity: COMMON NORMALS: no clubbing, cyanosis or edema and no pedal edema NARRATIVE EXTREMITY EXAM: 1-2+ bilateral lower extremity pitting edema Data 06/07/22 03:53 06/07/22 03:53 Micro: Microbiology 06/06/22 10:35 Blood Culture - Preliminary Blood SPECIMEN COLLECTED 06/06/22 10:30 Blood Culture - Preliminary Blood SPECIMEN COLLECTED A&P Assessment and plan (1) HTN (hypertension): Qualifiers: Hypertension type: essential hypertension Qualified Code(s): I10 - Essential (primary) hypertension (2) Hypothyroid: Qualifiers: Hypothyroidism type: postoperative Qualified Code(s): E89.0 - Postprocedural hypothyroidism (3) Tracheostomy care: (4) Pneumonia: (5) NSTEMI (non-ST elevated myocardial infarction): (6) UTI (urinary tract infection): Plan 87 year old male past medical history of hypertension diabetes atrial fibrillat ion hypothyroidism,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 Came in today as he was experiencing worsening shortness of breath as well as copious amount of secretion at the tracheostomy, requiring the need for supplemental oxygen, usually he is not on oxygen, currently requiring 6 L oxygen through tracheal mask. Assessment: Pneumonia: X-ray chest has shown: Reticular interstitial lung opacities in both lower lung welch, increased yellow-green secretion through tracheostomy site, worsening cough. Follow blood culture, Urine culture Sputum Gram stain and culture Urine Legionella antigen Bacterial antigen panel MRSA PCR Currently is empirically kept on broad-spectrum antibiotic with vancomycin and meropenem NSTEMI: Troponin trend:91-112-212 EKG: A-fib with left bundle branch block (currently patient does not meet either sgarbossa for modified sgarbossa criteria) Currently is denying chest pain Follow 2D echo Continue telemetry monitoring, serial EKG monitoring Currently on aspirin, therapeutic anticoagulation with Lovenox, statin Possible cardiology consult UTI: Follow urine culture On Broad-spectrum antibiotics History of atrial fibrillation: Currently rate is decently controlled On therapeutic anticoagulation with Lovenox we will resume Eliquis on discharge Continue telemetry monitoring History of diabetes: SSI, monitor fingerstick glucose History of hypothyroidism: Continue levothyroxine History of hypertension: Continue amlodipine, and Minipress H/O HFpEF : Continue Lasix 40 p.o. daily Monitor intake output charting Monitor daily weight Monitor electrolytes Attestations Medical Necessity Statement*: Patient is in hospital for management NSTEMI pneumonia Coding Level of Care Code 41109 Diagnoses HTN (hypertension) I10 Hypertension type: essential hypertension Hypothyroid E89.0 Hypothyroidism type: postoperative Tracheostomy care Z43.0 Pneumonia J18.9 NSTEMI (non-ST elevated myocardial infarction) I21.4 UTI (urinary tract infection) N39.0
[2022-06-07] MEDS: FUROsemide 10 mg/mL SDV 4mL 40 MG IVP (11:00)
[2022-06-07] MEDS: vancomycin 1,500 MG/300 ML PIGGYBACK 200 MG IV (11:00)
[2022-06-07 11:01] LABS: Glucose Point of Care 212 mg/dL (70-110)
[2022-06-07] MEDS: insulin lispro 100 unit/1 mL SUBCUT (13:11)
[2022-06-07 16:31] LABS: Glucose Point of Care 89 mg/dL (70-110)
[2022-06-07] MEDS: atorvastatin 40 mg Tablet PO (21:13)
[2022-06-07 21:15] LABS: Glucose Point of Care 131 mg/dL (70-110)
[2022-06-08] VITALS (8 sets, daily range): BP systolic 101–126; BP diastolic 61–77; PULSE 66–79; RESP 16–21; TEMP 36.6; O2SAT 99–100
[2022-06-08] MEDS: meropenem 500 MG in sodium chloride 0.9% (plus) 50 ML 100 MG IV ×2 (01:06→08:43)
[2022-06-08] MEDS: vancomycin 1,500 MG/300 ML PIGGYBACK 200 MG IV ×2 (01:06→12:10)
[2022-06-08] MEDS: ipratropium-albuterol 3 mL Neb INHALATION ×3 (02:42→08:15)
[2022-06-08 03:32] LABS: Basophils % 0.7 %; Eosinophils # 0.4 10^3/uL (0.0-0.8); Eosinophils % 6.1 %; Hematocrit 29.9 % (42.0-52.0); Hemoglobin 9.3 g/dL (11.7-16.6); Lymphocytes # 1.3 10^3/uL (0.8-4.8); Lymphocytes % 21.9 %; Mean Corpuscular HGB Conc 31.1 g/dL (30.0-36.0); Mean Corpuscular Hemoglobin 31.4 pg (28.0-34.0); Mean Platelet Volume 9.4 fL (7.4-10.4); Monocytes # 0.4 10^3/uL (0.2-0.9); Monocytes % 6.7 %; Neutrophils # 3.66 10^3/uL (1.8-7.7); Neutrophils % 64.1 %; Nucleated Red Blood Cells % 0 %; Platelet Count 293 10^3/cmm (130-400); Red Blood Count 2.96 10^6/uL (4.1-5.3); Red Cell Distribution Width 15.8 % (12.1-15.1); White Blood Count 5.7 10^3/uL (4.0-10.0)
[2022-06-08 03:58] LABS: Alanine Aminotransferase 8 U/L (0-41); Albumin Level 2.5 g/dL (3.5-5.2); Alkaline Phosphatase 51 U/L (40-130); Anion Gap 19.5 (5-19); Aspartate Amino Transferase 17 U/L (0-40); Blood Urea Nitrogen 13 mg/dL (8-23); Calcium 6.7 mg/dL (8.5-10.5); Carbon Dioxide 20 mmol/L (22-29); Chloride 93 mmol/L (98-107); Globulin 2.4 g/dL (1.3-4.6); Glucose 110 mg/dL (65-115); Osmolality Calculated 269 mOsm/kg (285-295); Potassium 3.5 mmol/L (3.5-5.1); Sodium 129 mmol/L (136-145); Total Bilirubin 0.3 mg/dL (0.15-1.2); Total Protein 4.9 g/dL (6.6-8.7)
[2022-06-08] MEDS: enoxaparin 120 mg/0.8 mL Syringe SUBCUT (06:15)
[2022-06-08 06:46] LABS: Glucose Point of Care 111 mg/dL (70-110)
[2022-06-08] MEDS: FUROsemide 40 mg Tablet PO (08:43)
[2022-06-08] MEDS: aspirin 81 mg EC Tablet PO (08:43)
[2022-06-08] MEDS: amlodipine 10 mg Tablet PO (08:43)
[2022-06-08] MEDS: levothyroxine 50 mcg Tablet PO (08:43)
[2022-06-08] MEDS: prazosin 5 mg Capsule PO (08:43)
[2022-06-08 11:17] LABS: Vancomycin Trough 18.6 ug/mL (10-15)
[2022-06-08 11:47] LABS: Glucose Point of Care 187 mg/dL (70-110)
[2022-06-08] MEDS: insulin lispro 100 unit/1 mL SUBCUT (12:09)
--- NOTE | 2022-06-08 13:56 | PM.DCS ---
Discharge Providers Date of Admission: 06/06/22 12:00 Date of Discharge: June 08, 2022 Attending Provider at Admission: Yoni Meng MD Attending Provider at Discharge: Yoni Meng MD Primary Care Provider: Noel You MD Diagnoses at Discharge Discharge Diagnosis (1) HTN (hypertension): Status: Chronic Qualifiers: Hypertension type: essential hypertension Qualified Code(s): I10 - Essential (primary) hypertension (2) Hypothyroid: Status: Chronic Qualifiers: Hypothyroidism type: postoperative Qualified Code(s): E89.0 - Postprocedural hypothyroidism (3) Tracheostomy care: Status: Inactive (4) Pneumonia: Status: Acute (5) NSTEMI (non-ST elevated myocardial infarction): Status: Acute (6) UTI (urinary tract infection): Status: Acute Reason for Visit Reason for Visit: DIFFICULTY BREATHING/ CP Hospital Course Hospital Course Earle De La Rosa is a 87 year old male past medical history of hypertension diabetes atrial fibrillation hypothyroidism,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 Came in today as he was experiencing worsening shortness of breath as well as copious amount of secretion at the tracheostomy, requiring the need for supplemental oxygen, usually he is not on oxygen on admission he was requiring 6ls oxygen through tracheal mask, he was inintially admitted for the management of pneumonia, he was kept on broad-spectrum antibiotics, blood cultures were negative, urine culture was growing Serratia.m sensitive to levofloxacin, he was discharged on p.o. levofloxacin for additional 7 days. Patient at the time of discharge was afebrile, was saturating well on room air.During the hospital stay patient was also managed for NSTEMI, he was kept on ACS protocol, aspirin ,therapeutic anticoagulation, 2D echo result: Showed severely depressed ejection fraction, RWMA in LAD territory, aortic stenosis, during the hospital stay patient has complained of mild chest tightness 3 out of 4 in severity, given his current comorbid state, and current management of pneumonia, it has been deemed appropriate that he follow cardiology as outpatient, once more stable, and if he wished to pursue any further work-up in terms of cardiac cath. Currently patient is being discharged in stable condition to home, he has been asked to follow With cardiology as well as PCP as outpatient. Official 2D echo report is pending: As it has not been transmitted due to some technical glitch, till the time of discharge. Physical Exam HENMT: COMMON NORMALS: normocephalic and atraumatic HEAD & SCALP: normocephalic and atraumatic Neck/C-Spine: OTHER: treach in place. Resp: COMMON NORMALS: clear to auscultation bilaterally EFFORT & INSPECTION: Yes symmetric chest movement AUSCULTATION: clear to auscultation bilaterally Cardio: COMMON NORMALS: regular rate, regular rhythm, S1 normal heart sound present, S2 normal heart sound present, No gallops present (Cardio), No murmurs present (Cardio), No rub (Cardio) and Peripheral pulses 2+ throughout RATE: regular rate RHYTHM: regular rhythm HEART SOUNDS: S1 normal heart sound present and S2 normal heart sound present PERIPHERAL PULSES: Peripheral pulses 2+ throughout GI: COMMON NORMALS: Normal to inspection, nondistended, normoactive bowel sounds present, Soft to palpation, non-tender, No hepatosplenomegaly present and no masses AUSCULTATION: Yes normoactive bowel sounds PALPATION: Yes Soft to palpation and Yes No hepatosplenomegaly present RECTAL EXAM: Yes deferred Extremity: COMMON NORMALS: no clubbing, cyanosis or edema and no pedal edema NARRATIVE EXTREMITY EXAM: 1-2+ bilateral lower extremity pitting edema Discharge Data Studies Completed and Pending Completed Studies During Hospitalization Category Date Time Status XR chest 1V portable [id number] Stat Exams 06/06/22 08:05 Completed Pending at discharge Category Date Time Status Blood Culture Stat Lab 06/06/22 10:35 Results Complete Blood Count w/Auto AM LABS Lab 06/09/22 04:00 Ordered Comprehensive Metabolic Panel AM LABS Lab 06/09/22 04:00 Ordered CV. echo complete* [id number] Routine Ultrasound 06/07/22 06:00 Taken Radiology Impressions Chest X-Ray 06/06/22 08:05 IMPRESSION: Lung bases changes as above likely representing acute/subacute pneumonitis. Laboratory Results WBC 5.7 10^3/uL (4.0-10.0) 06/08/22 03:02 RBC 2.96 10^6/uL (4.1-5.3) L 06/08/22 03:02 Hgb 9.3 g/dL (11.7-16.6) L 06/08/22 03:02 Hct 29.9 % (42.0-52.0) L 06/08/22 03:02 MCV 101.0 fl (80-94) H 06/08/22 03:02 MCH 31.4 pg (28.0-34.0) 06/08/22 03:02 MCHC 31.1 g/dL (30.0-36.0) 06/08/22 03:02 RDW 15.8 % (12.1-15.1) H 06/08/22 03:02 Plt Count 293 10^3/cmm (130-400) 06/08/22 03:02 MPV 9.4 fL (7.4-10.4) 06/08/22 03:02 Neut % (Auto) 64.1 % 06/08/22 03:02 Lymph % (Auto) 21.9 % 06/08/22 03:02 [place] % (Auto) 6.7 % 06/08/22 03:02 Eos % (Auto) 6.1 % 06/08/22 03:02 Baso % (Auto) 0.7 % 06/08/22 03:02 Neut # (Auto) 3.66 10^3/uL (1.8-7.7) 06/08/22 03:02 Lymph # (Auto) 1.3 10^3/uL (0.8-4.8) 06/08/22 03:02 [place] # (Auto) 0.4 10^3/uL (0.2-0.9) 06/08/22 03:02 Eos # (Auto) 0.4 10^3/uL (0.0-0.8) 06/08/22 03:02 Baso # (Auto) 0.0 10^3/uL (0.0-0.1) 06/08/22 03:02 Nucleated RBC % (auto) 0 % 06/08/22 03:02 Nucleated RBCs # 0.0 /100WBC 06/08/22 03:02 Sodium 129 mmol/L (136-145) L 06/08/22 03:02 Potassium 3.5 mmol/L (3.5-5.1) 06/08/22 03:02 Chloride 93 mmol/L (98-107) L 06/08/22 03:02 Carbon Dioxide 20 mmol/L (22-29) L 06/08/22 03:02 Anion Gap 19.5 (5-19) H 06/08/22 03:02 BUN 13 mg/dL (8-23) 06/08/22 03:02 Creatinine 0.7 mg/dL (0.7-1.2) 06/08/22 03:02 GFR Calculation Not Reportable 06/08/22 03:02 Glucose 110 mg/dL (65-115) 06/08/22 03:02 POC Glucose 187 mg/dL (70-110) H 06/08/22 11:35 Calculated Osmolality 269 mOsm/kg (285-295) L 06/08/22 03:02 Calcium 6.7 mg/dL (8.5-10.5) L 06/08/22 03:02 Magnesium 2.1 mg/dL (1.7-2.3) 06/07/22 03:53 Total Bilirubin 0.3 mg/dL (0.15-1.2) 06/08/22 03:02 AST 17 U/L (0-40) 06/08/22 03:02 ALT 8 U/L (0-41) 06/08/22 03:02 Alkaline Phosphatase 51 U/L (40-130) 06/08/22 03:02 Troponin T Baseline 91 ng/L (0-15) H 06/06/22 08:27 Troponin T 120 Minute 112.2 ng/L (0-15) H 06/06/22 10:30 Delta Troponin T 21.2 ABS# (0-10) H* 06/06/22 10:30 Troponin T Hi Sens 6Hr 212.5 ng/L (0-15) H 06/06/22 14:42 Troponin T Hi Sens 6Hr Delta 121.5 ng/L (0-12) H* 06/06/22 14:42 Total Protein 4.9 g/dL (6.6-8.7) L D 06/08/22 03:02 Albumin 2.5 g/dL (3.5-5.2) L 06/08/22 03:02 Globulin 2.4 g/dL (1.3-4.6) 06/08/22 03:02 Procalcitonin 0.06 ng/mL (0-0.5) 06/07/22 03:53 Urine Color Yellow (Yellow) 06/06/22 10:00 Urine Appearance Cloudy (CLEAR) A 06/06/22 10:00 Urine pH 7 (5-7) 06/06/22 10:00 Ur Specific [place] 1.010 (1.005-1.030) 06/06/22 10:00 Urine Protein Neg (Negative) 06/06/22 10:00 Urine Glucose (UA) Norm (Normal) 06/06/22 10:00 Urine Ketones Negative (Negative) 06/06/22 10:00 Urine Blood 2+ (Negative) H 06/06/22 10:00 Urine Nitrate Negative (Negative) 06/06/22 10:00 Urine Bilirubin Neg (Negative) 06/06/22 10:00 Urine Urobilinogen Neg mg/dL (Negative) 06/06/22 10:00 Ur Leukocyte Esterase 2+ (Negative) H 06/06/22 10:00 Urine RBC 5-10 /hpf (0-2) H 06/06/22 10:00 Urine WBC >100 /hpf (0-5) H 06/06/22 10:00 Ur Squamous Epith Cells None /hpf (0-5) 06/06/22 10:00 Amorphous Sediment Not Reportable 06/06/22 10:00 Urine Bacteria 4+ /hpf (NONE) H 06/06/22 10:00 Vancomycin Trough 18.6 ug/mL (10-15) H 06/08/22 10:15 Vitals Last Vital Signs Temp 97.9 F 06/08/22 04:00 Pulse 79 06/08/22 11:48 Resp 17 06/08/22 11:48 BP 101/61 06/08/22 11:48 Pulse Ox 99 06/08/22 13:22 O2 Del Method 06/08/22 08:00 O2 Flow Rate 5.5 06/08/22 08:00 FiO2 28 06/08/22 08:00 Discharge Plan Discharge Patient Disposition: Home Health Service Condition: Stable Prescriptions: New levofloxacin 750 mg tablet 750 mg PO DAILY 7 Days Qty: 7 0RF Lasix 40 mg tablet 40 mg PO BID Qty: 60 3RF Lipitor 40 mg tablet 40 mg PO DAILY Qty: 30 0RF Continued prazosin 5 mg capsule 5 mg PO DAILY amlodipine 10 mg tablet 10 mg PO DAILY tamsulosin 0.4 mg capsule 0.4 mg PO BID Qty: 180 3RF finasteride 5 mg tablet 5 mg PO QDAY Qty: 90 3RF famotidine 40 mg tablet 40 mg PO BID aspirin 81 mg Tablet,Delayed Release (Dr/Ec) 81 mg PO DAILY metformin 500 mg tablet extended release 24 hr 500 mg PO DAILY spironolactone 50 mg tablet 50 mg PO DAILY Eliquis 2.5 mg Tablet 2.5 mg PO BID albuterol sulfate 90 mcg/actuation HFA aerosol inhaler 2 inh inhalation Q4H PRN (Reason: shortness of breath or wheezing) Qty: 8.5 0RF levothyroxine 50 mcg Tablet 50 mcg PO DAILY Vitamin B-12 250 mcg Tablet 250 mcg PO DAILY calcium carbonate-vitamin D3 600 mg-5 mcg (200 unit) Tablet 1 tab PO DAILY vitamin E 268 mg (400 unit) Capsule 268 mg PO DAILY Discontinued furosemide 40 mg tablet 80 mg PO DAILY Discharge Orders: Discharge Order (Routine); Ordered 06/08/22 Ordered By: Yoni Meng Referrals: [facility] [Outside] - 1 week (Clinic will call with follow-up appointment) Neol You MD [Primary Care Provider] - 1 week (Clinic will call with follow-up appointment. ) Clover Fitch FNP [Nurse Practitioner] - 1 week (Clinic will call with follow-up appointment.) Patient Instructions: Levofloxacin (By mouth), Using Oxygen at Home (DC), Bacterial Pneumonia (DC), Opioid Safety Discharge Attestations Time Spent in Discharge Care*: greater than 30 min Status at Discharge: Cognitive status at discharge: cognitively intact, Behavioral status at discharge: cooperative, Quality Metrics Clinical Quality Measures [ No reported AMI, CVA or VTE this stay] Coding Level of Care Code Acute Code for Chg Fwd Diagnoses HTN (hypertension) I10 Hypertension type: essential hypertension Hypothyroid E89.0 Hypothyroidism type: postoperative Tracheostomy care Z43.0 Pneumonia J18.9 NSTEMI (non-ST elevated myocardial infarction) I21.4 UTI (urinary tract infection) N39.0
--- NOTE | 2022-06-08 15:01 | PC.NURSE ---
PT DISCHARGES HOME VIA PRIVATE VEHICLE WITH [facility]. PT VS STABLE UPON DISCHARGE. O2 SATURATION 98%RA. MEDICATIONS SENT TO [facility], PER PT CHOICE. PT EDUCATED THAT [facility] IS NOT OPEN ON THURSDAY, BUT DEMANDS THEY BE SENT TO [facility]. IV REMOVED FROM LEFT AC - CATHETER INTACT UPON REMOVAL. PAPERWORK SIGNED AND QUESTIONS ANSWERED. LEAVES FACILITY AT 1445.
--- NOTE | 2022-06-09 09:28 | PC.NURSE ---
Received a call from [facility] in [place] to clarify Furosemide order as they received two; Furosemide 40 mg 1 tablet PO daily and 40 mg 1 tab PO BID. I reviewed documentation with Dr. Sergio Diaz and upon review it was decided that the intention was 40 mg PO daily. I provided this correction via verbal order to the pharmacy. Dr. Diaz sent a message to Dr. Meng and if any changes are decided, will call a verbal order to them. I spoke with [facility] and informed them of this clarification. Elsy verbalizes understanding.
--- NOTE | 2022-06-09 09:40 | PC.NURSE ---
[facility] called and stated that they had not received d/c information. I faxed the d/c packet to the fax number received.
== END 2022-06-08 14:45 | disposition home health service (06) | DRG 280 ==
LOC: ER 08:36 → MEDSURG 11:47
PROVIDERS: Admitting Provider Internal Medicine; Emergency Provider Family Medicine; PCP Family Medicine; Visit Provider Internal Medicine
DX: I21.4 Non-ST elevation (NSTEMI) myocardial infarction (principal); J18.9 Pneumonia, unspecified organism; I50.22 Chronic systolic (congestive) heart failure; N39.0 Urinary tract infection, site not specified; I11.0 Hypertensive heart disease with heart failure; Z93.0 Tracheostomy status; B96.89 Other specified bacterial agents as the cause of diseases classified elsewhere; E11.9 Type 2 diabetes mellitus without complications; I48.91 Unspecified atrial fibrillation; Z98.890 Other specified postprocedural states; I35.0 Nonrheumatic aortic (valve) stenosis; Z79.82 Long term (current) use of aspirin; Z79.84 Long term (current) use of oral hypoglycemic drugs; Z79.51 Long term (current) use of inhaled steroids; Z86.16 Personal history of COVID-19; E78.5 Hyperlipidemia, unspecified; Z87.891 Personal history of nicotine dependence; E89.0 Postprocedural hypothyroidism; Z96.653 Presence of artificial knee joint, bilateral; N40.0 Benign prostatic hyperplasia without lower urinary tract symptoms; Z85.820 Personal history of malignant melanoma of skin
CPT/HCPCS: 36415; 36416; 71045; 80053; 80202; 81001; 82962; 83735; 84145; 84484; 85025; 87040; 87070; 87077; 87086; 87186; 87205; 87641; 93005; 93306; 94640; 94664; 94760; 94799; 96365; 96366; 96367; 96372; 99285; J1650; J1815; J1940; J1956; J2185; J3370; J7030; J7050

== ENCOUNTER 2022-06-09 12:44 | Emergency (ER) | payer MEDICARE, BC, SELFPAY ==
[2022-06-09] VITALS (7 sets, daily range): BP systolic 90–133; BP diastolic 57–73; PULSE 67–93; RESP 15–19; TEMP 36.6; O2SAT 93–100
--- NOTE | 2022-06-09 12:55 | ED_ITS ---
HPI - Weakness General: Chief complaint: Shortness of Breath/Dyspnea Stated complaint: respiratory distress Time Seen by Provider: 06/09/22 12:55 Limitations: physical limitation History of Present Illness: Mr De La Rosa is an 87-year-old gentleman with history of tracheostomy presenting to the emergency department for respiratory distress. EMS was called and found the patient to be in significant respiratory distress which improved with removing and cleaning in her cannula. Patient has had thick estevez sputum secretions and increased shortness of breath. History is mildly limited by patient's respiratory status and ability to communicate with trach. 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 UTI (urinary tract infection) Surgical History History of bilateral knee replacement History of cataract surgery History of inguinal hernia repair History of thyroidectomy For Hurthle cell carcinoma Family History Father , in his 70's Lung disease Mother Heart attack Social History Smoking and tobacco status: former smoker Alcohol intake: current Alcohol intake frequency: holidays/special occasions only Household members: none Marital status: / Current occupational status: retired History of recent travel: No Physical Exam Const: COMMON NORMALS: alert GENERAL APPEARANCE: cooperative and well developed HENMT: COMMON NORMALS: normocephalic and atraumatic HEAD & SCALP: normocephalic and atraumatic Eye: COMMON NORMALS: conjunctivae normal CONJUNCTIVA: Yes conjunctivae normal SCLERA: sclerae normal Neck/C-Spine: COMMON NORMALS: supple GENERAL: Yes trachea midline Resp: COMMON NORMALS: normal respiratory effort AUSCULTATION: rhonchi Cardio: COMMON NORMALS: regular rate and regular rhythm RATE: regular rate RHYTHM: regular rhythm GI: COMMON NORMALS: Soft to palpation PALPATION: Yes Soft to palpation and No Tenderness to palpation present (GI) Extremity: GENERAL: Yes normal exam except as noted and No edema Neuro: COMMON NORMALS: moves all extremities SENSORIUM/ORIENTATION: Yes alert and No Orientation impaired Psych: COMMON NORMALS: mental status grossly normal and Normal thought process present THOUGHT PROCESS: Normal thought process present Course Vital Signs: Vital signs: Vital Signs Temperature 97.8 F 06/09/22 13:03 Pulse Rate 81 06/09/22 19:00 Respiratory Rate 15 06/09/22 19:00 Blood Pressure 116/66 06/09/22 19:00 Pulse Oximetry 96 06/09/22 19:00 Oxygen Delivery Me thod 06/09/22 17:40 Oxygen Flow Rate 8 06/09/22 13:43 MDM - Weakness Medical Decision Making 87-year-old gentleman presenting to the emergency department for concern for tracheostomy with increased shortness of breath. Exam as above. Patient is nontoxic but chronically ill-appearing. Labs notable for no leukocytosis, mild hemoconcentration compared to prior. No electrolyte abnormality. BNP is elevated. Negative viral panel. Chest x-ray with no lobar consolidation or pneumothorax. Fluids and RT treatment ordered. Given worsening symptoms despite prior treatment I recommended admission which the patient declined. He does have a new oxygen requirement. I will order home oxygen.. Most likely etiology of symptoms is multifactorial including infection and inadequate instruction on tracheostomy care. We will plan to have H.O.M.E. Follow-up on further respiratory care teaching. The results of ED evaluation were discussed with the patient including prescriptions and/or symptomatic cares (if applicable) including appropriate and responsible use, followup plan, and return precautions. The patient verbalized understanding and felt safe for discharge. Medical Records I reviewed the patient's medical records. Lab Data I reviewed the patient's lab results. 06/09/22 13:20 06/09/22 13:20 Radiology Impressions Chest X-Ray 06/09/22 13:08 IMPRESSION: 1. New tracheostomy tube. 2. Cardiomegaly. Laboratory Results WBC 5.7 10^3/uL (4.0-10.0) 06/09/22 13:20 RBC 3.53 10^6/uL (4.1-5.3) L 06/09/22 13:20 Hgb 11.2 g/dL (11.7-16.6) L 06/09/22 13:20 Hct 35.1 % (42.0-52.0) L 06/09/22 13:20 MCV 99.4 fl (80-94) H 06/09/22 13:20 MCH 31.7 pg (28.0-34.0) 06/09/22 13:20 MCHC 31.9 g/dL (30.0-36.0) 06/09/22 13:20 RDW 15.8 % (12.1-15.1) H 06/09/22 13:20 Plt Count 335 10^3/cmm (130-400) 06/09/22 13:20 MPV 9.7 fL (7.4-10.4) 06/09/22 13:20 Neut % (Auto) 71.8 % 06/09/22 13:20 Lymph % (Auto) 16.5 % 06/09/22 13:20 [place] % (Auto) 7.2 % 06/09/22 13:20 Eos % (Auto) 3.5 % 06/09/22 13:20 Baso % (Auto) 0.5 % 06/09/22 13:20 Neut # (Auto) 4.07 10^3/uL (1.8-7.7) 06/09/22 13:20 Lymph # (Auto) 0.9 10^3/uL (0.8-4.8) 06/09/22 13:20 [place] # (Auto) 0.4 10^3/uL (0.2-0.9) 06/09/22 13:20 Eos # (Auto) 0.2 10^3/uL (0.0-0.8) 06/09/22 13:20 Baso # (Auto) 0.0 10^3/uL (0.0-0.1) 06/09/22 13:20 Nucleated RBC % (auto) 0 % 06/09/22 13:20 Nucleated RBCs # 0.0 /100WBC 06/09/22 13:20 Sodium 140 mmol/L (136-145) 06/09/22 13:20 Potassium 4.4 mmol/L (3.5-5.1) 06/09/22 13:20 Chloride 104 mmol/L (98-107) 06/09/22 13:20 Carbon Dioxide 25 mmol/L (22-29) 06/09/22 13:20 Anion Gap 15.4 (5-19) 06/09/22 13:20 BUN 15 mg/dL (8-23) 06/09/22 13:20 Creatinine 0.8 mg/dL (0.7-1.2) 06/09/22 13:20 GFR Calculation Not Reportable 06/09/22 13:20 Glucose 116 mg/dL (65-115) H 06/09/22 13:20 Calculated Osmolality 292 mOsm/kg (285-295) 06/09/22 13:20 Lactic Acid 1.4 mmol/L (0.5-2.2) 06/09/22 13:20 Calcium 8.9 mg/dL (8.5-10.5) 06/09/22 13:20 Total Bilirubin 0.4 mg/dL (0.15-1.2) 06/09/22 13:20 AST 21 U/L (0-40) 06/09/22 13:20 ALT 12 U/L (0-41) 06/09/22 13:20 Alkaline Phosphatase 62 U/L (40-130) 06/09/22 13:20 NT-Pro-B Natriuret Pep 6392 pg/mL (0-450) H 06/09/22 13:20 Total Protein 6.7 g/dL (6.6-8.7) 06/09/22 13:20 Albumin 3.5 g/dL (3.5-5.2) 06/09/22 13:20 Globulin 3.2 g/dL (1.3-4.6) 06/09/22 13:20 Nasal Influ A H1 2009 PCR Not detected (NOT DETECT) 06/09/22 14:01 Adenovirus (PCR) Not detected (NOT DETECT) 06/09/22 14:01 C. pneumoniae DNA (PCR) Not detected (NOT DETECT) 06/09/22 14:01 Coronavirus 229E (PCR) Not detected (NOT DETECT) 06/09/22 14:01 Human Metapneumovir PCR Not detected (NOT DETECT) 06/09/22 14:01 Influenza A (H1) PCR Not detected (NOT DETECT) 06/09/22 14:01 Influenza A (H3) PCR Not detected (NOT DETECT) 06/09/22 14:01 Influenza Type A (PCR) Not detected (NOT DETECT) 06/09/22 14:01 Influenza Type B (PCR) Not detected (NOT DETECT) 06/09/22 14:01 M. pneumoniae (PCR) Not detected (NOT DETECT) 06/09/22 14:01 Parainfluenza 1 (PCR) Not detected (NOT DETECT) 06/09/22 14:01 Parainfluenza 2 (PCR) Not detected (NOT DETECT) 06/09/22 14:01 Parainfluenza 3 (PCR) Not detected (NOT DETECT) 06/09/22 14:01 Parainfluenza 4 (PCR) Not detected (NOT DETECT) 06/09/22 14:01 RSV Type A (PCR) Not detected (NOT DETECT) 06/09/22 14:01 RSV Type B (PCR) Not detected (NOT DETECT) 06/09/22 14:01 Entero/Rhino (PCR) Not detected (NOT DETECT) 06/09/22 14:01 SARS-CoV-2 (PCR) Not detected (NOT DETECT) 06/09/22 14:01 Discharge Plan Discharge Patient Disposition: Home Clinical Impression: Complication of tracheostomy tube, Pneumonia Condition: Stable Prescriptions: New albuterol sulfate 2.5 mg /3 mL (0.083 %) solution for nebulization 2.5 mg inhalation Q4H PRN (Reason: shortness of breath or wheezing) Qty: 180 0RF (DME) nebulizers Misc See Rx Instructions .Route Qty: 1 0RF Rx Instructions: As directed No Action prazosin 5 mg capsule 5 mg PO DAILY amlodipine 10 mg tablet 10 mg PO DAILY tamsulosin 0.4 mg capsule 0.4 mg PO BID Qty: 180 3RF finasteride 5 mg tablet 5 mg PO QDAY Qty: 90 3RF famotidine 40 mg tablet 40 mg PO BID aspirin 81 mg Tablet,Delayed Release (Dr/Ec) 81 mg PO DAILY metformin 500 mg tablet extended release 24 hr 500 mg PO DAILY spironolactone 50 mg tablet 50 mg PO DAILY Eliquis 2.5 mg Tablet 2.5 mg PO BID albuterol sulfate 90 mcg/actuation HFA aerosol inhaler 2 inh inhalation Q4H PRN (Reason: shortness of breath or wheezing) Qty: 8.5 0RF levothyroxine 50 mcg Tablet 50 mcg PO DAILY Vitamin B-12 250 mcg Tablet 250 mcg PO DAILY calcium carbonate-vitamin D3 600 mg-5 mcg (200 unit) Tablet 1 tab PO DAILY vitamin E 268 mg (400 unit) Capsule 268 mg PO DAILY Lasix 40 mg tablet 40 mg PO BID Qty: 60 3RF Lipitor 40 mg tablet 40 mg PO DAILY Qty: 30 0RF Discharge Orders: Discharge ED (Routine); Ordered 06/09/22 Ordered By: Bruce Raphael Other Ambulatory Orders: DME: Miscellaneous (Order) Location: None Selected Ordered By: Bruce Raphael DME: Oxygen (Order) Location: None Selected Ordered By: Brcue Raphael Referrals: Noel You MD [Primary Care Provider] - Discharge Diet: As Directed Discharge Activity: Limit activity as instructed Patient Instructions: How to Use a Nebulizer (ED), Pneumonia (ED), Shortness of Breath (ED) Activity Restrictions/Additional Instructions: Thank you for visiting the emergency department. You were seen and evaluated for respiratory symptoms including respiratory secretions. The exact cause your symptoms is unclear though may be secondary to infection which will be treated with antibiotics. I recommended admission which you are declining at this time. You may return to the emergency department at any time if you change your mind. I will prescribe steroids and antibiotics. Please also use your albuterol nebulizer 1 treatment every 4 hours for 24 hours followed by nebulizer 1 treatment 6 hours for 24 hours followed by nebulizer 1 treatment every 8 hours for 24 hours and then return to the normal schedule. I will order home oxygen, home suction machine, and also prescribe nebulizer m achine. Follow-up with your primary care provider. Return to the emergency department for worsening symptoms or anything else that you are concerned about and feel needs emergency department evaluation. Coding Level of Care Code ED Director Of Valuation for Katt Napier
--- NOTE | 2022-06-09 13:08 | XRR_ITS ---
PROCEDURE INFORMATION: Exam: XR Chest Exam date and time: 06/09/2022 1:42 PM Age: 87 years old Clinical indication: Cough and shortness of breath; Additional info: Cough, SOB TECHNIQUE: Imaging protocol: Radiologic exam of the chest. Views: 1 view. COMPARISON: CR XR chest 1V portable [id number] 04/16/2022 10:38 AM FINDINGS: Tubes, catheters and devices: New tracheostomy tube. Its tip is in the midline the level clavicles. Lungs: Unremarkable. No consolidation. Pleural spaces: Unremarkable. No pleural effusion. No pneumothorax. Heart/Mediastinum: Cardiomegaly. Bones/joints: See Tubes, catheters and devices finding. XR/XR chest 1V portable [id number] IMPRESSION: 1. New tracheostomy tube. 2. Cardiomegaly.
[2022-06-09] MEDS: ipratropium-albuterol 3 mL Neb INHALATION (13:38)
[2022-06-09 14:02] LABS: Basophils % 0.5 %; Eosinophils # 0.2 10^3/uL (0.0-0.8); Eosinophils % 3.5 %; Hematocrit 35.1 % (42.0-52.0); Hemoglobin 11.2 g/dL (11.7-16.6); Lymphocytes # 0.9 10^3/uL (0.8-4.8); Lymphocytes % 16.5 %; Mean Corpuscular HGB Conc 31.9 g/dL (30.0-36.0); Mean Corpuscular Hemoglobin 31.7 pg (28.0-34.0); Mean Corpuscular Volume 99.4 fl (80-94); Mean Platelet Volume 9.7 fL (7.4-10.4); Monocytes # 0.4 10^3/uL (0.2-0.9); Monocytes % 7.2 %; Neutrophils # 4.07 10^3/uL (1.8-7.7); Neutrophils % 71.8 %; Nucleated Red Blood Cells % 0 %; Platelet Count 335 10^3/cmm (130-400); Red Blood Count 3.53 10^6/uL (4.1-5.3); Red Cell Distribution Width 15.8 % (12.1-15.1); White Blood Count 5.7 10^3/uL (4.0-10.0)
[2022-06-09 14:15] LABS: Lactic Sepsis W/Reflex 1.4 mmol/L (0.5-2.2)
[2022-06-09 14:44] LABS: Alanine Aminotransferase 12 U/L (0-41); Albumin Level 3.5 g/dL (3.5-5.2); Alkaline Phosphatase 62 U/L (40-130); Anion Gap 15.4 (5-19); Aspartate Amino Transferase 21 U/L (0-40); Blood Urea Nitrogen 15 mg/dL (8-23); Calcium 8.9 mg/dL (8.5-10.5); Carbon Dioxide 25 mmol/L (22-29); Chloride 104 mmol/L (98-107); Globulin 3.2 g/dL (1.3-4.6); Glucose 116 mg/dL (65-115); NT Pro B Type Natriuretic Pept 6392 pg/mL (0-450); Osmolality Calculated 292 mOsm/kg (285-295); Potassium 4.4 mmol/L (3.5-5.1); Sodium 140 mmol/L (136-145); Total Bilirubin 0.4 mg/dL (0.15-1.2); Total Protein 6.7 g/dL (6.6-8.7)
--- NOTE | 2022-06-09 15:11 | PC.NURSE ---
ORDER CHANGED PER DR. FRANCO
[2022-06-09] MEDS: sodium chloride 0.9% 500 ML 999 ML IV (15:26)
[2022-06-09 17:31] LABS: Adenovirus Not Detected (NOT DETECT); Chlamydia Pneumoniae Not Detected (NOT DETECT); Coronavirus 229E,HKU1,NL63,OC4 Not Detected (NOT DETECT); Human Metapneumovirus Not Detected (NOT DETECT); Human Rhinovirus/Enterovirus Not Detected (NOT DETECT); Influenza A Not Detected (NOT DETECT); Influenza A H1 Not Detected (NOT DETECT); Influenza A H1-2009 Not Detected (NOT DETECT); Influenza A H3 Not Detected (NOT DETECT); Influenza B Not Detected (NOT DETECT); Mycoplasma Pneumoniae Not Detected (NOT DETECT); Parainfluenza Virus Type 1 Not Detected (NOT DETECT); Parainfluenza Virus Type 2 Not Detected (NOT DETECT); Parainfluenza Virus Type 3 Not Detected (NOT DETECT); Parainfluenza Virus Type 4 Not Detected (NOT DETECT); Respiratory Syncytial Virus A Not Detected (NOT DETECT); Respiratory Syncytial Virus B Not Detected (NOT DETECT); SARS-COV-2 Not Detected (NOT DETECT)
== END 2022-06-09 19:01 | disposition home or self-care (01) ==
PROVIDERS: Emergency Provider Emergency Medicine; PCP Family Medicine
DX: J18.9 Pneumonia, unspecified organism (principal); J95.00 Unspecified tracheostomy complication; Y82.8 Other medical devices associated with adverse incidents; Z79.01 Long term (current) use of anticoagulants; Z79.82 Long term (current) use of aspirin; Z79.84 Long term (current) use of oral hypoglycemic drugs; Z20.822 Contact with and (suspected) exposure to COVID-19; I11.0 Hypertensive heart disease with heart failure; I50.30 Unspecified diastolic (congestive) heart failure; E78.5 Hyperlipidemia, unspecified; I25.2 Old myocardial infarction; Z87.891 Personal history of nicotine dependence
CPT/HCPCS: 71045; 80053; 83605; 83880; 85025; 87040; 87070; 87077; 87186; 87205; 87486; 87581; 87633; 94640; 99284; J7040

== ENCOUNTER → 2022-06-18 12:18 | Outpatient (BNVA) | payer MEDICARE, BC, SELFPAY | PROVIDERS: PCP Family Medicine; Visit Provider Urology | DX: N40.1 Benign prostatic hyperplasia with lower urinary tract symptoms (principal); R33.8 Other retention of urine; R31.0 Gross hematuria; N47.2 Paraphimosis | CPT/HCPCS: 81003; 99213 ==

== ENCOUNTER 2022-07-02 15:21 | Emergency (ER) | payer MEDICARE, BC, SELFPAY ==
[2022-07-02 15:40] VITALS: BP 122/65; PULSE 90; RESP 23; TEMP 37.1; O2SAT 100; BMI 34.6
[2022-07-02 17:07] VITALS: BP 122/65; PULSE 90; O2SAT 99
[2022-07-02 18:12] VITALS: BP 116/71; PULSE 86; O2SAT 99
--- NOTE | 2022-07-02 18:12 | ED_ITS ---
HPI - SOB/Dyspnea General: Chief Complaint: Airway/Esophagus Foreign Body Stated Complaint: TRACH CAME OUT AFTER COUGHING Time Seen by Provider: 07/02/22 15:54 Source: patient Mode of arrival: ambulatory Limitations: no limitations History of Present Illness: HPI Narrative: Patient presents to the emergency department because of his tracheostomy dislodgment. His tracheostomy was apparently not well secured and during his coughing episode he dislodged his tracheostomy tube. Tracheostomy has been matured its been in place approximately for 5 to 6 weeks per history. Denies any other symptoms to include fever change in breathing status etc. Pertinent past history: tracheostomy Exacerbating factors: coughing Associated symptoms: Deny chest pain, extremity pain, fever(s), nausea or vomiting Review of Systems Const: Denies: fever(s) or chills ENMT: Denies: throat pain, odynophagia or nasal discharge Card: Denies: chest pain Resp: Reports: non-productive cough; Denies: wheezing or stridor GI: Denies: nausea, vomiting or diarrhea : Denies: flank pain or difficulty urinating Musc: Denies: back pain or extremity pain Skin/Breast: Denies: rash Neuro: Denies: headache(s), numbness in extremities or weakness in extremities PFSH ED PFSH: Medical History Atrial fibrillation Basal cell carcinoma Borderline diabetes BPH loc w urin obs/LUTS COVID-19 vaccine administered Moderna Diastolic CHF Dyslipidemia Elevated troponin History of rhabdomyolysis HTN (hypertension) Hypothyroid Hypoxia Malignant melanoma in situ NSTEMI (non-ST elevated myocardial infarction) Pneumonia Pneumonia Pneumonia Postprocedural wound infection Prostatic hypertrophy 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 Const: COMMON NORMALS: no acute distress, average body habitus, patient oriented x3 and alert GENERAL APPEARANCE: cooperative HENMT: COMMON NORMALS: normocephalic, atraumatic and Normal nasal mucous membranes and turbinates present HEAD & SCALP: normocephalic and atraumatic NOSE: Normal nasal mucous membranes and turbinates present Eye: COMMON NORMALS: Equal, round and reactive pupils present and EOMs intact bilaterally PUPIL: Yes Equal, round and reactive pupils present Neck/C-Spine: COMMON NORMALS: full ROM OTHER: Tracheostomy stoma noted to be mature and intact with no bleeding etc. RT replaced trach tube and introducer without any difficulty. Chest: COMMONS NORMALS: normal inspection of the chest Resp: COMMON NORMALS: normal respiratory effort and No use of accessory muscles OTHER: He has good air movement has occasional scattered rhonchi no wheezes noted. No stridor no respiratory distress. Cardio: COMMON NORMALS: regular rate, regular rhythm and Peripheral pulses 2+ throughout RATE: regular rate RHYTHM: regular rhythm PERIPHERAL PULSES: Peripheral pulses 2+ throughout GI: COMMON NORMALS: Normal to inspection, nondistended, normoactive bowel sounds present and Soft to palpation PALPATION: Yes Soft to palpation Back/Pelvis: COMMON NORMALS: thoracic and lumbar spine normal to inspection and thoraco-lumbar ROM normal Extremity: COMMON NORMALS: normal to inspection, full ROM and no calf tenderness Neuro: COMMON NORMALS: patient oriented x3, moves all extremities and no focal motor deficits SENSORIUM/ORIENTATION: Yes alert Psych: COMMON NORMALS: cooperative Skin: COMMON NORMALS: no rashes or lesions noted and no wounds GENERAL SKIN EXAM: no rashes or lesions noted Course Vital Signs: Vital signs: Vital Signs Temperature 98.8 F 07/02/22 15:40 Pulse Rate 90 07/02/22 17:07 Respiratory Rate 23 H 07/02/22 15:40 Blood Pressure 122/65 07/02/22 17:07 Pulse Oximetry 99 07/02/22 17:07 Oxygen Delivery Me thod Oxymask, Trach Co llar 07/02/22 17:07 Oxygen Flow Rate 3 07/02/22 17:07 MDM - SOB/Dyspnea Medical Decision Making Patient presented to the emergency department because of tracheostomy tube dislodgment. Patient was seen in a very busy department but immediately had attention taken to his presentation and RT was consulted and replace his tracheostomy without difficulty, bleeding, etc. He was observed for period of time in the emergency department received the benefit of suctioning as well as additional education on tracheostomy care at home. He is deemed to be stable and suitable for discharge at this time. Discharge Plan Discharge Patient Disposition: Home Clinical Impression: Tracheostomy, acute management Condition: Stable Prescriptions: No Action prazosin 5 mg capsule 5 mg PO DAILY amlodipine 10 mg tablet 10 mg PO DAILY tamsulosin 0.4 mg capsule 0.4 mg PO BID Qty: 180 3RF finasteride 5 mg tablet 5 mg PO QDAY Qty: 90 3RF famotidine 40 mg tablet 40 mg PO BID aspirin 81 mg Tablet,Delayed Release (Dr/Ec) 81 mg PO DAILY metformin 500 mg tablet extended release 24 hr 500 mg PO DAILY spironolactone 50 mg tablet 50 mg PO DAILY Eliquis 2.5 mg Tablet 2.5 mg PO BID albuterol sulfate 90 mcg/actuation HFA aerosol inhaler 2 inh inhalation Q4H PRN (Reason: shortness of breath or wheezing) Qty: 8.5 0RF albuterol sulfate 2.5 mg /3 mL (0.083 %) solution for nebulization 2.5 mg inhalation Q4H PRN (Reason: shortness of breath or wheezing) Qty: 180 0RF (DME) nebulizers Misc See Rx Instructions .Route Qty: 1 0RF Rx Instructions: As directed levothyroxine 50 mcg Tablet 50 mcg PO DAILY Vitamin B-12 250 mcg Tablet 250 mcg PO DAILY calcium carbonate-vitamin D3 600 mg-5 mcg (200 unit) Tablet 1 tab PO DAILY vitamin E 268 mg (400 unit) Capsule 268 mg PO DAILY Lasix 40 mg tablet 40 mg PO BID Qty: 60 3RF Lipitor 40 mg tablet 40 mg PO DAILY Qty: 30 0RF Discharge Orders: Discharge ED (Routine); Ordered 07/02/22 Ordered By: Jarocho Arguelles Referrals: Noel You MD [Primary Care Provider] - Discharge Diet: Usual diet Discharge Activity: Increase activity as tolerated Patient Instructions: Opioid Safety, Pain Management Activity Restrictions/Additional Instructions: Continue all your usual medications. Continue your tracheostomy care and being mindful not to dislodge your tracheostomy tube when doing suctioning and/or other care at home. Should you develop any concerning symptoms you are welcome to return to the emergency department as needed. Coding Level of Care Code ED Health And Physical Education Professor for Katt Napier
== END 2022-07-02 18:20 | disposition home or self-care (01) ==
PROVIDERS: Emergency Provider Emergency Medicine; PCP Family Medicine
DX: Z43.0 Encounter for attention to tracheostomy (principal); Z79.82 Long term (current) use of aspirin; Z79.01 Long term (current) use of anticoagulants; Z79.84 Long term (current) use of oral hypoglycemic drugs; Z87.891 Personal history of nicotine dependence; I11.0 Hypertensive heart disease with heart failure; I50.30 Unspecified diastolic (congestive) heart failure; E78.5 Hyperlipidemia, unspecified; I25.2 Old myocardial infarction
CPT/HCPCS: 99283